=== PATIENT | female | born 1970 | race Caucasian/White ===

== ENCOUNTER 2018-01-31 05:03 | Inpatient (IN) | payer OTHER ==
[~2018-01-31] VITALS: Ht 170.2 cm; Wt 75.7 kg
[2018-01-31] VITALS (12 sets, daily range): BP systolic 137–184; BP diastolic 88–120
[~2018-01-31 05:03] MED LIST: CLARITIN-D 241 EACH PO; LISINOPRIL10 M1 PO; PROTONIX40 M3 PO
[2018-01-31 05:29] LABS: ABSOLUTE BASOPHIL COUNT 0 /CUMM (0.0-0.2); ABSOLUTE EOSINOPHIL COUNT 0 /CUMM (0.0-0.7); ABSOLUTE GRANULOCYTE CT 9.8 /CUMM (1.4-6.5); ABSOLUTE LYMPH COUNT 1.1 /CUMM (1.2-3.4); ABSOLUTE MONOCYTE COUNT 0.8 /CUMM (0.10-0.60); BASOPHIL % 0.4 % (0.0-2.0); EOSINOPHIL % 0.2 % (0-5); GRANULOCYTE % 83.6 % (42.2-75.2); HEMATOCRIT 42.5 % (37-47); MEAN CORPUSCULAR HGB 33.5 PG (27.0-31.0); MEAN CORPUSCULAR HGB CONC 33.1 G/DL (33.0-37.0); MEAN CORPUSCULAR VOLUME 101.4 FL (81.0-99.0); MEAN PLATELET VOLUME 7.6 FL (7.4-10.4); PLATELET COUNT 218 /CUMM (130-400); RBC DISTRIBUTION WIDTH 17.5 % (11.5-14.5); RED BLOOD CELL CT 4.19 /CUMM (4.20-5.40); WHITE BLOOD CELL COUNT 11.8 /CUMM (4.8-10.8)
[2018-01-31 05:37] LABS: PT 10.9 SEC (9.4-12.5); PTT 24 SEC (25-37)
--- NOTE | 2018-01-31 05:42 | ED GI/GU/ABDOMINAL COMPLAINT ---
History of Present Illness General Chief Complaint: Abdominal Pain/Flank Pain Stated Complaint: "IM HAVEING TERRIBLE STOMACH PAINS JUST TERRIBLE" Source: patient, family, old records Exam Limitations: no limitations Vital Signs & Intake/Output Vital Signs & Intake/Output Vital Signs Date Time Temp Pulse Resp B/P B/P Pulse O2 O2 Flow FiO2 Mean Ox Delivery Rate 01/31 0609 97 Room Air 01/31 0512 97.6 126 18 162/94 100 Room Air Allergies Coded Allergies: clarithromycin (From BIAXIN) (Severe, ANAPHYLAXIS 07/13/17) Penicillins (Intermediate, RASH 07/13/17) levofloxacin (From LEVAQUIN) (Intermediate, RASH 07/13/17) Reconcile Medications Lisinopril 10 MG TABLET 1 TAB PO QAM HTN (Reported) Loratadine/Pseudoephedrine (Claritin-D 24 Hour Tablet) 10 MG-240 MG TAB.ER.24H 1 TAB PO DAILY ALLERGIES (Reported) Pantoprazole Sodium (Protonix) 40 MG TABLET.DR 1 TAB PO BID GERD (Reported) Triage Note: PT FROM HOME C/O ABD PAIN THAT RADIATES TO BACK ON BOTH SIDE SINCE 2099. PT STATES THAT THE STOMACH PAIN IS 10/10, PT UNABLE TO DESCRIBE THE PAIN "I DONT KNOW IT JUST HURTS ALOT" PT IS SHAKING FROM PAIN IN TRIAGE. PTS VSS. AFEBRILE. PT PT STATES NAUSEA. PT DENIES SELF MEDICATING FOR PAIN. Triage Nurses Notes Reviewed? yes LMP (ages 10-50): unknown ? n Is pt currently ? No Onset: yesterday Duration: hour(s):, constant, continues in ED, getting worse Timing: recent history Quality/Severity: sharpness, severe Location: epigastric Radiation: no radiation Activities at Onset: none Prior Abdominal Problems: similar symptoms Past Sexual History: Unobtainable at this time No Modifying Factors: none Associated Symptoms: abdominal pain, loss of appetite, nausea/vomiting HPI: 1 day prior to admission patient complains of increasing mid abdominal discomfort now described as severe sharp radiating like a belt associated with nausea and diaphoresis. She denies vomiting diarrhea chest pain cough shortness of breath headache dysuria rash bleeding. Past History Travel History Traveled to [place] past 21 day No Medical History Any Pertinent Medical History? 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 MOTHER (bladder Ca). Age 67. Hx Contributory? No Review of Systems Review of Systems Constitutional: Reports: see HPI, diaphoresis. EENTM: Reports: no symptoms. Respiratory: Reports: no symptoms. Cardiovascular: Reports: no symptoms. GI: Reports: see HPI, abdominal pain, nausea. Genitourinary: Reports: no symptoms. Musculoskeletal: Reports: no symptoms. Skin: Reports: no symptoms. Neurological/Psychological: Reports: no symptoms. Hematologic/Endocrine: Reports: no symptoms. Immunologic/Allergic: Reports: no symptoms. All Other Systems: Reviewed and Negative Physical Exam Physical Exam General Appearance: well developed/nourished, alert, awake, anxious, severe distress Head: atraumatic, normal appearance Eyes: Bilateral: normal appearance, PERRL, EOMI, normal inspection. Ears, Nose, Throat, Mouth: hearing grossly normal, moist mucous membrane Neck: normal inspection, supple, full range of motion, normal alignment Respiratory: normal breath sounds, no respiratory distress, quiet respiration, lungs clear Cardiovascular: regular rate/rhythm, normal peripheral pulses, norml femoral pulses equa Peripheral Pulses: 4+ carotid (R), 4+ carotid (L) Gastrointestinal: soft, abnormal bowel sounds, distention, guarding Rectal: deferred Back: normal inspection, normal range of motion Extremities: normal range of motion Neurologic/Psych: no motor/sensory deficits, awake, alert, oriented x 3, normal gait, normal mood/affect Skin: intact, diaphoresis Core Measures ACS in differential dx? No Sepsis Present: No Sepsis Focused Exam Completed? No Progress Differential Diagnosis: appendicitis, biliary colic, kidney stone, pancreatitis Plan of Care: Orders Procedure Date/time Status Nothing by Mouth 01/31 B Active Patient Data 01/31 1644 Active LACTIC ACID 01/31 0821 Active OXYGEN SETUP (GEN) 01/31 0650 Active Saline Lock 01/31 0650 Active Admit to inpatient 01/31 0650 Active Vital Signs 01/31 0650 Active Activity/Ambulation 01/31 0650 Active URINALYSIS 01/31 0650 Active Code Status 01/31 0650 Active PARTIAL THROMBOPLASTIN TIME 01/31 0521 Complete PROTHROMBIN TIME 01/31 05 Complete LACTIC ACID 01/31 05 Complete TROPONIN LEVEL 01/31 517 Complete LIPASE 01/31 517 Complete ETHANOL 01/31 517 Complete COMPREHENSIVE METABOLIC PANEL 01/31 517 Complete CBC WITHOUT DIFFERENTIAL 01/31 517 Complete AMYLASE 01/31 517 Complete Current Medications Sig/Lucy Start time Last Medication Dose Stop Time Status Admin Sodium Chloride 1,000 ML BOLUS ONE 01/31 06 AC (Normal Saline 0.9%) 01/31 0714 Laboratory Tests 01/31/1818: Lactic Acid 3.0 H 01/31/1818: Anion Gap 17 H, Estimated GFR > 60, BUN/Creatinine Ratio 20.0, Glucose 118 H, Calcium 9.1, Total Bilirubin 0.7, AST 249 H, ALT 210 H, Alkaline Phosphatase 100, Troponin I < 0.01, Total Protein 6.9, Albumin 4.5, Globulin 2.4, Albumin/ Globulin Ratio 1.9, Amylase 503 H, Lipase 7174 H, PT 10.9, INR 1.00, APTT 24 L, CBC w Diff NO MAN DIFF REQ, RBC 4.19 L, MCV 101.4 H, MCH 33.5 H, MCHC 33.1 , RDW 17.5 H, MPV 7.6, Gran % 83.6 H, Lymphocytes % 9.3 L, Monocytes % 6.5, Eosinophils % 0.2, Basophils % 0.4, Absolute Granulocytes 9.8 H, Absolute Lymphocytes 1.1 L, Absolute Monocytes 0.8 H, Absolute Eosinophils 0, Absolute Basophils 0, Serum Alcohol 61.0 Diagnostic Imaging: Viewed by Me: CT Scan. Discussed w/RAD: CT Scan. Radiology Impression: Edematous pancreas with moderate to large amount of adjacent free fluid. The appearance is suspicious for pancreatitis. There are no demonstrable pancreatic nor biliary calculi. Hepatic steatosis. Moderate amount of pelvic free fluid. Bibasilar atelectasis. Initial ED EKG: none Departure Departure Time of Disposition: 647 Disposition: STILL A PATIENT Condition: Stable Clinical Impression Primary Impression: Pancreatitis, acute Referrals: Patient Has No Primary Care Dr (PCP/Family) Departure Forms: Customer Survey General Discharge Information Admission Note Spoke With: Sue Mccray MD Documentation of Exam: Documentation of any treatments & extenuating circumstances including Concerns Regarding Discharge (functional status, medication knowledge or non-compliance, living conditions, etc.) that warrant an admission rather than observation: Nothing by mouth IV analgesia IV fluids serial lab exam medication adjustment advance diet continuing care discharge planning Critical Care Note Critical Care Note Critical Care Time: 30-74 min (40)
--- NOTE | 2018-01-31 06:41 | CT SCAN REPORT ---
EXAMINATION: CT ABDOMEN AND PELVIS WITH CONTRAST CLINICAL INFORMATION: Abdominal pain. Concern for pancreatitis. History of prior intussusception. COMPARISON: August 08, 2017. TECHNIQUE: Contiguous axial thin section helical images of the abdomen and pelvis were performed following the administration of 95 mL of intravenous Optiray 320. The data set was reformatted in the coronal and sagittal planes and reviewed on an independent workstation. DLP: 287 mGy-cm. FINDINGS: There is bibasilar linear atelectasis. The visualized lung bases are otherwise clear. The visualized portions of the heart are unremarkable. The liver is of normal size and attenuation without focal lesions nor intrahepatic biliary ductal dilation. A normal gallbladder is identified. There is no wall thickening or discernible pericholecystic fluid. The the spleen and adrenal glands are unremarkable. The pancreas is edematous. There are no parenchymal mass lesions. There are no areas of abnormal enhancement. There is a moderate to large amount of free fluid within the upper abdomen, centered about the pancreas. Free fluid extends into both paracolic gutters. Both kidneys are of normal size and attenuation without hydronephrosis or nephrolithiasis. Following the administration of IV contrast, prompt symmetric nephrograms are displayed. There is no abdominal free fluid. There is neither mesenteric nor retroperitoneal lymphadenopathy. Normal unopacified loops of small and large bowel are identified. There is a moderate amount of pelvic free fluid. The urinary bladder is unremarkable. There is neither pelvic nor inguinal lymphadenopathy. Bone windows: Neither sclerotic nor lytic bone lesions are identified. IMPRESSION: Edematous pancreas with moderate to large amount of adjacent free fluid. The appearance is suspicious for pancreatitis. There are no demonstrable pancreatic nor biliary calculi. Hepatic steatosis. Moderate amount of pelvic free fluid. Bibasilar atelectasis.
--- NOTE | 2018-01-31 07:59 | History & Physical ---
Ji Juarez 01/31/18 0759: General Information and HPI MD Statement: I have seen and personally examined ZOE BEAUCHAMP and documented this H&P. Source of Information: patient Exam Limitations: no limitations History of Present Illness: The patient is a 7 YO F w/PMH sigfinicant for HTN who presents to the hospital for abdominal pain and nausea one day. The patient, describes abdominal pain as sharp, constant, 9/10, radiating to have back. She also felt feverish and had chills last night. This morning started experience shaking. Her last drink was yesterday afternoon(glass of vodka and gingerale). Usually drinks 10 drinks per week. No h/o admission to the hospital for alcohol detox, no admission to rehab. No h/o withdrawal seizure. At the time of our interview, the patient denies any headache, dizziness, lightheadedness, chest pain, shortness of breath. Denies smoking or illicit drug use. Allergies/Medications Allergies: Coded Allergies: clarithromycin (From BIAXIN) (Severe, ANAPHYLAXIS 07/13/17) Penicillins (Intermediate, RASH 07/13/17) levofloxacin (From LEVAQUIN) (Intermediate, RASH 07/13/17) Home Med list Lisinopril 10 MG TABLET 1 TAB PO QAM HTN (Reported) Loratadine/Pseudoephedrine (Claritin-D 24 Hour Tablet) 10 MG-240 MG TAB.ER.24H 1 TAB PO DAILY ALLERGIES (Reported) Pantoprazole Sodium (Protonix) 40 MG TABLET.DR 1 TAB PO BID GERD (Reported) Past History Travel History Traveled to [place] past 21 day No Medical History Neurological: NONE EENT: allergies (seasonal) Cardiovascular: hypertension Respiratory: NONE Gastrointestinal: GERD, peptic ulcer disease (reportedly at age 12 by UGI) Hepatic: NONE Renal: NONE Musculoskeletal: NONE Psychiatric: NONE Endocrine: NONE Blood Disorders: NONE (macrocytic, w/o transfx), anemia Cancer(s): NONE 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 MOTHER (bladder Ca). Age 67. Psychosocial History Who Do You Live With? child, fiancee, Bill Services at Home: None Primary Language: Romansh Living Will? no Power of Commercial Credit Officer/HCP? no Functional Ability ADLs Independent: dressing, eating, toileting, bathing. Ambulation: independent IADLs Independent: shopping, housework, finances, food prep, telephone, transportation , medication admin. Sexual History Past Sexual History Unobtainable at this time Review of Systems Review of Systems Constitutional: Reports: chills, diaphoresis, fever. Denies: malaise, weakness, unexplained weight loss. EENTM: Reports: no symptoms. Cardiovascular: Denies: chest pain, edema, orthopena, palpitations, peripheral edema, syncope. Respiratory: Denies: cough, hemoptysis, orthopnea, short of breath, sputum production, stridor, wheezing. GI: Reports: abdominal pain, nausea. Denies: bloating, constipation, diarrhea, distention, bowel incontinence, melena, bloody stool, changes in stool, vomiting , steatorrhea. Genitourinary: Reports: no symptoms. Musculoskeletal: Reports: no symptoms. Skin: Reports: no symptoms. Neurological/Psychological: Reports: no symptoms. Hematologic/Endocrine: Reports: no symptoms. Immunologic/Allergic: Reports: no symptoms. Exam & Diagnostic Data Last 24 Hrs of Vital Signs/I&O Vital Signs Date Time Temp Pulse Resp B/P B/P Pulse O2 O2 Flow FiO2 Mean Ox Delivery Rate 01/31 0850 97.7 127 20 168/102 01/31 0849 97.7 127 20 168/102 98 Room Air 01/31 0735 98.6 100 20 140/80 100 Room Air 01/31 0609 97 Room Air 01/31 0512 97.6 126 18 162/94 100 Room Air Intake & Output 01/31 1600 01/31 0800 01/31 0000 Intake Total 1000 Output Total Balance 1000 Intake, IV 1000 Patient 146 lb Weight Weight Reported by Patient Measurement Method Physical Exam General Appearance Alert, Oriented X3, Mild Distress Skin No Rashes, No Breakdown, No Significant Lesion Skin Temp/Moisture Exam: Warm/Dry HEENT Atraumatic, PERRLA, EOMI, Mucous Membr. moist/pink Neck Supple, No JVD, No thryomegaly, +2 Carotid Pulse wo Bruit, No LAD Lymphatic Cervical nl Cardiovascular Regular Rate, Normal S1, Normal S2, No Murmurs, Gallops, Rubs Lungs Clear to Auscultation, Normal Air Movement Abdomen Generalized tenderness to palpation, no guarding, no rebound Neurological Normal Speech, Strength at 5/5 X4 Ext, Normal Tone, Sensation Intact, Cranial Nerves 3-12 NL, Reflexes 2+ Extremities No Clubbing, No Cyanosis, No Edema, Normal Pulses, No Tenderness/ Swelling Vascular Normal Pulses, Pulses Symmetrical Last 24 Hrs of Labs/Altaf: Laboratory Tests 01/31/18 0817: Lactic Acid Pending 01/31/18 0650: Urine Color YEL, Urine Clarity HAZY H, Urine pH 6.5, Ur Specific [place] 1.010, Urine Protein TRACE H, Urine Ketones TRACE H, Urine Nitrite NEG, Urine Bilirubin NEG, Urine Urobilinogen 0.2, Ur Leukocyte Esterase NEG, Ur Microscopic SEDIMENT EXAMINED, Urine RBC RARE, Urine WBC 1-3 H, Ur Epithelial Cells MANY H , Urine Bacteria RARE H, Urine Mucus RARE, Urine Hemoglobin NEG, Urine Glucose NEG 01/31/18 0518: Lactic Acid 3.0 H 01/31/18 0518: Anion Gap 17 H, Estimated GFR > 60, BUN/Creatinine Ratio 20.0, Glucose 118 H, Calcium 9.1, Total Bilirubin 0.7, AST 249 H, ALT 210 H, Alkaline Phosphatase 100, Troponin I < 0.01, Total Protein 6.9, Albumin 4.5, Globulin 2.4, Albumin/ Globulin Ratio 1.9, Amylase 503 H, Lipase 7174 H, PT 10.9, INR 1.00, APTT 24 L, CBC w Diff NO MAN DIFF REQ, RBC 4.19 L, MCV 101.4 H, MCH 33.5 H, MCHC 33.1 , RDW 17.5 H, MPV 7.6, Gran % 83.6 H, Lymphocytes % 9.3 L, Monocytes % 6.5, Eosinophils % 0.2, Basophils % 0.4, Absolute Granulocytes 9.8 H, Absolute Lymphocytes 1.1 L, Absolute Monocytes 0.8 H, Absolute Eosinophils 0, Absolute Basophils 0, Serum Alcohol 61.0 Diagnostic Data Other Results CT abdomen/pelvis: Edematous pancreas with moderate to large amount of adjacent free fluid. The appearance is suspicious for pancreatitis. There are no demonstrable pancreatic nor biliary calculi. Hepatic steatosis. Moderate amount of pelvic free fluid. Bibasilar atelectasis. Assessment/Plan Assessment: The patient is a 7 YO F w/PMH sigfinicant for HTN who presents to the hospital for abdominal pain and nausea one day. Amylase: 503 Lipase: 7174 CT reveals pancreatitis. Does not meet SIRS criteria. Serum creatinine and BUN, HCT not elevated. Problem list: #acute pancreatitis #Alcohol withdrawal # hypertension Plan: infiltrates As Ranked By This Provider Problem List: 1. Pancreatitis, acute Core Measures/Misc (06/03) Acute Coronary Syndrome ACS Diagnosis: No Congestive Heart Failure Congestive Heart Failure Diagnosis No Cerebrovascular Accident CVA/TIA Diagnosis: No VTE (View Protocol) VTE Risk Factors Age>40 No Mechanical VTE Prophylaxis d/t N/A MechProphylax Ordered No VTE Pharm Prophylaxis d/t NA PharmProphylax ordered Sepsis (View protocol) Sepsis Present: No Wu Fish 01/31/18 1452: Attending MD Review Statement Attending Statement Attending MD Statement: examined this patient, discuss w/resident/PA/TRAY SETTER, agreed w/resident/PA/TRAY SETTER, reviewed EMR data (avail), discussed with nursing, discussed with case mgmt Attending Assessment/Plan: 47 yr old female with pmh of HTN and alcohol use presented with c/c of HTN who presents to the hospital for abdominal pain and nausea one day. Pt says her last drink of vodka was last evening and she could not drink it as it made her abdominal pain worse and made her nauseous. Pt on CT abdomen in ER was found to have- " Edematous pancreas with moderate to large amount of adjacent free fluid. The appearance is suspicious for pancreatitis. There are no demonstrable pancreatic nor biliary calculi." Acute pacreatitis likely seondary to alcohol use- will keep her NPO for now and will cont to monitor her closley. will aggressively hydrate her and will cont on pain managment. Lactic acidosis- improving with iv fluids. will rechech again to see if it normalizes. ETOH intoxication and active withdrawl- pt bp and hr is high. will cont her on ativan per CIWA protocol. Pt appears shaky on exam > will need to monitor her closely for worsening withdrawl> Monitor on tele for now due to tachycardia. Will check b12 and folate level. d/w pt the care plan.
--- NOTE | 2018-01-31 13:40 | RADIOLOGY REPORT ---
EXAMINATION: XR PORTABLE CHEST CLINICAL INFORMATION: Pancreatitis with tachycardia COMPARISON: 07/13/2017 TECHNIQUE: Portable frontal view of the chest was obtained. FINDINGS: The cardiomediastinal silhouette is normal and unchanged. There are low lung volumes with bibasilar atelectasis produced. There is no significant effusion seen. There is no consolidation is evident. IMPRESSION: Low lung volumes with basilar atelectasis. No demonstrable effusion.
--- NOTE | 2018-01-31 14:47 | Admission Certification ---
Admission Certification Certification Statement - As attending physician, I certify that at the time of - admission, based on clinical presentation, severity of - symptoms, need for further diagnostic testing and - therapeutic interventions, and risk of adverse outcomes - without in-hospital treatment, in my clinical assessment, - this patient requires an acute hospital stay for a minimum - of two nights or longer. I have also considered psychsocial - factors such as support system, advanced age, financial - issues, cognitive issues, and failed out-patient treatments, - past re-admission history, safety of patient, and lack of - compliance as applicable. Specific rationale supporting this admission is: acute pancreatitis and alcohol intoxication.
--- NOTE | 2018-01-31 21:42 | Event Note ---
Event Note Event Note: Situation: Was paged by the nurse at 730 because the patient has heartrate [id number] after she received 1 dose of labetalol 5 mg. Another dose of labetalol 20 mg was pushed around 8 PM. Patient remained tachycardic after that with heart rate over 130, CIWA score was 17. She was transferred to ICU and was started on Ativan drip, with trending of her lactic acid which was initially elevated, Family was informed( Mr. aparna Liu ) and he said he is still inside the hospital. And they will be at the bedside Update: Patient was noticed to desaturate into the 70s and was started on 100% rebreather mask, patient received IV lactated Ringed total bolus of 7 L. CXR showed CHF with pulmonary edema, pt recieved Lasix 20 mg IV Ordered CXR, Trops and EKG , Lactic acid Background:L
--- NOTE | 2018-01-31 22:42 | RADIOLOGY REPORT ---
EXAMINATION: XR PORTABLE CHEST CLINICAL INFORMATION: Desaturation. Pulmonary edema. COMPARISON: Chest x-ray 01/31/2018 TECHNIQUE: Portable frontal view of the chest was obtained. 10:13 PM FINDINGS: Low lung volume. There is pulmonary vascular congestion with hazy opacity in the mid lungs bilaterally consistent with developing pulmonary edema. No large pleural effusion. IMPRESSION: Congestive heart failure with pulmonary edema.
--- NOTE | 2018-01-31 23:33 | RADIOLOGY REPORT ---
EXAMINATION: XR PORTABLE CHEST CLINICAL INFORMATION: ET tube. OG tube. COMPARISON: Chest x-ray 01/31/2018, 10:13 PM TECHNIQUE: Portable frontal view of the chest was obtained. 11:09 PM FINDINGS: Nasogastric tube in stomach. Endotracheal tube in good position with catheter tip about 4 cm above the megan. There is pulmonary vascular congestion with pulmonary edema and bilateral pleural effusions similar to prior chest x-ray. IMPRESSION: 1. Oral gastric tube in stomach. 2. Endotracheal tube catheter tip 4 cm above megan. 3. Congestive heart failure.
[2018-02-01] VITALS (11 sets, daily range): BP systolic 100–130; BP diastolic 70–99
--- NOTE | 2018-02-01 00:10 | RADIOLOGY REPORT ---
EXAMINATION: CHEST 1 VIEW CLINICAL INFORMATION: Intubated. COMPARISON: Multiple prior exams are reviewed. The most recent is from the same day obtained at 2310 hours. TECHNIQUE: An AP view of the chest was obtained at 2341 hours. FINDINGS: The cardiac silhouette is stable. The tip of the endotracheal tube is approximately 5 cm above the megan. An enteric tube is in unchanged position. There is persistent patchy opacification within the lower half of the right hemithorax. As well, there is a persistent retrocardiac opacity. The degree of vascular congestion is improved from prior exam. There are small bilateral pleural effusions. There are no pneumothoraces. The osseous structures are stable. IMPRESSION: Endotracheal tube and enteric tube in place. Persistent multifocal airspace disease. Slight interval improvement in the degree of vascular congestion. Small bilateral pleural effusions.
[2018-02-01 03:01] LABS: ABSOLUTE BASOPHIL COUNT 0 /CUMM (0.0-0.2); ABSOLUTE EOSINOPHIL COUNT 0 /CUMM (0.0-0.7); ABSOLUTE GRANULOCYTE CT 13.9 /CUMM (1.4-6.5); BASOPHIL % 0 % (0.0-2.0); EOSINOPHIL % 0.1 % (0-5); GRANULOCYTE % 86.9 % (42.2-75.2); HEMATOCRIT 41.4 % (37-47); MEAN CORPUSCULAR HGB CONC 34.2 G/DL (33.0-37.0); MEAN CORPUSCULAR VOLUME 99.6 FL (81.0-99.0); MEAN PLATELET VOLUME 8.6 FL (7.4-10.4); PLATELET COUNT 146 /CUMM (130-400); RBC DISTRIBUTION WIDTH 16.7 % (11.5-14.5); RED BLOOD CELL CT 4.16 /CUMM (4.20-5.40)
--- NOTE | 2018-02-01 07:32 | RADIOLOGY REPORT ---
EXAMINATION: XR PORTABLE CHEST CLINICAL INFORMATION: Pancreatitis COMPARISON: Several chest x-rays from yesterday. TECHNIQUE: Portable frontal view of the chest was obtained. FINDINGS: Stable positioning of endotracheal tube approximately 4.6 cm above the level of the megan. Enteric tube terminates well below the level of the diaphragm. Cardiac silhouette is mildly enlarged, possibly secondary to technical factors. Persistent patchy opacification throughout the lower aspect of the right hemithorax. Degree of opacification in appearance slightly more prominent than imaging from yesterday. Retrocardiac opacity is also again suspected. No no gross pleural effusion or pneumothorax. IMPRESSION: 1. Stable support apparatus. 2. Persistent multifocal airspace disease, potentially mildly worsened within the right hemithorax.
--- NOTE | 2018-02-01 07:45 | Cons- CRCU ---
Brendon ROLLINS,[facility] 02/01/18 0745: General Information and HPI Consulting Request Date of Consult: 02/01/18 Requested By: BETTINA Reason for Consult: Delirium Trenems Intubation Exam Limitations: unable to give history History of Present Illness: This is a 47-year-old lady with a past medical history of hypertension and daily alcohol use presented with one-day history of abdominal pain in the setting of elevated lipase (7174) and CT finding suggestive of pancreatitis. Initially patient was admitted to general medicine floor for acute pancreatitis and etoh detox, however later in the evening, her ciwa remained elevated with significant tachycardia, decision was made to transfer to ICU for insulin drip. While at the ICU she desatted on nonrebreather mask to o2 levels of 70%, and was eventually intubated. Prior to transfer to ICU patient had received about 7 L of lactated Ringer, a chest x-ray was obtained and patient was administered IV Lasix. The ICU team is being consulted for management of etoh withdrawal complicated by the need for Ativan drip and acute hypoxic respiratory failure requiring invasive mechanical ventilation. Current Vent Setting: VT:500mls, FIo2 40, RR 22, PEEP 5. Access: 2 peripheral 20 G. Catheter: In place day 1. Allergies/Medications Allergies: Coded Allergies: clarithromycin (From BIAXIN) (Severe, ANAPHYLAXIS 07/13/17) Penicillins (Intermediate, RASH 07/13/17) levofloxacin (From LEVAQUIN) (Intermediate, RASH 07/13/17) Home Med List: Lisinopril 10 MG TABLET 1 TAB PO QAM HTN (Reported) Loratadine/Pseudoephedrine (Claritin-D 24 Hour Tablet) 10 MG-240 MG TAB.ER.24H 1 TAB PO DAILY ALLERGIES (Reported) Pantoprazole Sodium (Protonix) 40 MG TABLET.DR 1 TAB PO BID GERD (Reported) Past History Travel History Traveled to [place] past 21 day No Medical History Neurological: NONE EENT: allergies (seasonal) Cardiovascular: hypertension Respiratory: NONE Gastrointestinal: GERD, peptic ulcer disease (reportedly at age 12 by UGI) Hepatic: NONE Renal: NONE Musculoskeletal: NONE Psychiatric: NONE Endocrine: NONE Blood Disorders: NONE (macrocytic, w/o transfx), anemia Cancer(s): NONE 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 MOTHER (bladder Ca). Age 67. Psychosocial History Where Do You Live? Home Who Do You Live With? child, fiancee, Bill Services at Home: None Primary Language: Finnish Smoking Status: Never Smoked Living Will? no Power of Foot Press Operator/HCP? no Functional Ability ADLs Independent: dressing, eating, toileting, bathing. Ambulation: independent IADLs Independent: shopping, housework, finances, food prep, telephone, transportation , medication admin. Exam & Diagnostic Data Last 24 Hrs of Vital Signs/I&O Laboratory Tests 02/01/18 0808: Lactic Acid Pending 02/01/18 0555: pH 7.58 H, pCO2 24 L, pO2 64 L, HCO3 22, ABG O2 Sat (Measured) 94.0 L, P-50 (Temp Corrected) N, Carboxyhemoglobin 1.1 L, O2 Concentration % .40, Respiration Rate 22, O2 Delivery Method VENT, Vent Mode A/C, Expiratory Pressure 5, Tidal Volume 500, Phlebotomy Draw Site RIGHT BRACHIAL 02/01/18 0520: Troponin I 0.80 *H 02/01/18 0520: Lactic Acid Cancelled 02/01/18 0520: Lactic Acid 2.9 H 02/01/18 0245: Lactic Acid 2.6 H 02/01/18 0245: Anion Gap 12, Estimated GFR > 60, BUN/Creatinine Ratio 16.0, Phosphorus 3.1, Magnesium 0.8 *L, CBC w Diff MAN DIFF ORDERED, RBC 4.16 L, MCV 99.6 H, MCH 34.0 H, MCHC 34.2, RDW 16.7 H, MPV 8.6, Gran % 86.9 H, Lymphocytes % 6.4 L, Monocytes % 6.6, Eosinophils % 0.1, Basophils % 0, Absolute Granulocytes 13.9 H , Segmented Neutrophils 90 H, Band Neutrophils 2, Absolute Lymphocytes 1.0 L, Lymphocytes 5 L, Monocytes 3, Absolute Monocytes 1.0 H, Absolute Eosinophils 0 , Absolute Basophils 0, Platelet Estimate ADEQUATE, Normochromic RBCs VERIFIED, Poikilocytosis 1+, Ovalocytes FEW, Stomatocytes 1+, Fld Total RBCs Counted 100 01/31/18 2305: Troponin I 0.63 *H 01/31/18 2305: Lactic Acid 2.6 H 01/31/18 2250: pH 7.40, pCO2 34 L, pO2 54 L, HCO3 21, ABG O2 Sat (Measured) 85.0 L, P-50 ( Temp Corrected) N, Carboxyhemoglobin 1.2 L, O2 Concentration % 100%, Temperature 98.6, Respiration Rate 22, O2 Delivery Method VENT, Vent Mode VC-AC, Expiratory Pressure 10, Tidal Volume 500, Phlebotomy Draw Site LEFT RADIAL 01/31/181947: Lactic Acid Cancelled 01/31/181821: Lactic Acid 2.9 H 01/31/181821: Anion Gap 15, Estimated GFR > 60, BUN/Creatinine Ratio 17.5, Total Bilirubin 1.0 , Direct Bilirubin 0.2, AST 129 H, ALT 145 H, Alkaline Phosphatase 87, Total Protein 5.9 L, Albumin 3.7, Prolactin 26.0 H 01/31/18 1450: Lactic Acid 3.4 H 01/31/18 1234: Lactic Acid Cancelled 01/31/18 1130: Lactic Acid 3.5 H Vital Signs Date Time Temp Pulse Resp B/P B/P Pulse O2 O2 Flow FiO2 Mean Ox Delivery Rate 02/01 0600 99.8 128 22 114/83 02/01 0530 40 02/01 0400 99.0 130 22 126/93 02/01 0400 94 Ventilator 60% 02/01 0321 60 02/01 0200 124 22 102/81 02/01 0120 80 02/01 0105 141 127/94 02/01 0100 141 22 127/94 02/01 0000 148 22 127/99 02/01 0000 98.8 148 22 130/90 90 Ventilator 100% 02/01 0000 90 Ventilator 100% 01/31 2311 100 01/31 2300 156 22 137/96 01/31 2200 160 161/108 01/31 2130 140 33 152/105 02/01 2004 136 160/120 01/31 1954 136 160/120 01/31 1953 136 160/120 01/31 1800 98.6 120 16 164/104 01/31 1526 107 18 160/98 01/31 1448 118 184/110 01/31 1419 99.5 121 18 184/100 90 Room Air 01/31 1405 118 184/110 01/31 1330 98.6 120 20 140/80 98 Room Air 01/31 1250 98.6 122 20 158/88 01/31 1214 98.6 122 20 158/88 96 Room Air 01/31 1053 97.0 128 20 168/94 01/31 1050 97.0 128 20 168/94 01/31 1045 97.0 128 20 168/94 97 Room Air 01/31 0940 127 20 160/100 96 Room Air Intake & Output 02/01 1600 02/01 0800 02/01 0000 Intake Total 1208 Output Total 1600 Balance -392 Intake, IV 1208 Intake, Oral 0 Number 0 Bowel Movements Output, 200 Gastric Drainage Output, Urine 1400 Patient 78.103 kg Weight Weight Bed scale Measurement Method Physical Exam General Appearance: sedated, intubated Other Physical Findings: Skin No Rashes, No Breakdown, No Significant Lesion Skin Temp/Moisture Exam: Warm/Dry HEENT: ET tube intact. Neck Supple, No JVD, No thryomegaly, +2 Carotid Pulse wo Bruit, No LAD Lymphatic Cervical nl Cardiovascular Regular Rate, Normal S1, Normal S2, No Murmurs, Gallops, Rubs Lungs Clear to Auscultation, Normal Air Movement Abdomen Generalized tenderness to palpation, no guarding, no rebound Extremities No Clubbing, No Cyanosis, No Edema, Normal Pulses, No Tenderness/ Swelling Vascular Normal Pulses, Pulses Symmetrical Last 48 Hrs of Labs/Altaf: Laboratory Tests 02/01/18 0808: Lactic Acid 2.9 H 02/01/18 0555: pH 7.58 H, pCO2 24 L, pO2 64 L, HCO3 22, ABG O2 Sat (Measured) 94.0 L, P-50 (Temp Corrected) N, Carboxyhemoglobin 1.1 L, O2 Concentration % .40, Respiration Rate 22, O2 Delivery Method VENT, Vent Mode A/C, Expiratory Pressure 5, Tidal Volume 500, Phlebotomy Draw Site RIGHT BRACHIAL 02/01/18 0520: Troponin I 0.80 *H 02/01/18 0520: Lactic Acid Cancelled 02/01/18 0520: Lactic Acid 2.9 H 02/01/18 0245: Lactic Acid 2.6 H 02/01/18 0245: Anion Gap 12, Estimated GFR > 60, BUN/Creatinine Ratio 16.0, Phosphorus 3.1, Magnesium 0.8 *L, Gog-U-Aottjfeysnm Pept 2850 H, CBC w Diff MAN DIFF ORDERED, RBC 4.16 L, MCV 99.6 H, MCH 34.0 H, MCHC 34.2, RDW 16.7 H, MPV 8.6, Gran % 86.9 H, Lymphocytes % 6.4 L, Monocytes % 6.6, Eosinophils % 0.1, Basophils % 0 , Absolute Granulocytes 13.9 H, Segmented Neutrophils 90 H, Band Neutrophils 2 , Absolute Lymphocytes 1.0 L, Lymphocytes 5 L, Monocytes 3, Absolute Monocytes 1.0 H, Absolute Eosinophils 0, Absolute Basophils 0, Platelet Estimate ADEQUATE , Normochromic RBCs VERIFIED, Poikilocytosis 1+, Ovalocytes FEW, Stomatocytes 1+ , Fld Total RBCs Counted 100 01/31/18 230: Troponin I 0.63 *H 01/31/182304: Lactic Acid 2.6 H 01/31/180: pH 7.40, pCO2 34 L, pO2 54 L, HCO3 21, ABG O2 Sat (Measured) 85.0 L, P-50 ( Temp Corrected) N, Carboxyhemoglobin 1.2 L, O2 Concentration % 100%, Temperature 98.6, Respiration Rate 22, O2 Delivery Method VENT, Vent Mode VC-AC, Expiratory Pressure 10, Tidal Volume 500, Phlebotomy Draw Site LEFT RADIAL 01/31/181947: Lactic Acid Cancelled 01/31/181821: Lactic Acid 2.9 H 01/31/18 182: Anion Gap 15, Estimated GFR > 60, BUN/Creatinine Ratio 17.5, Total Bilirubin 1.0 , Direct Bilirubin 0.2, AST 129 H, ALT 145 H, Alkaline Phosphatase 87, Total Protein 5.9 L, Albumin 3.7, Prolactin 26.0 H 01/31/18 1450: Lactic Acid 3.4 H 01/31/18 1234: Lactic Acid Cancelled 01/31/18 1130: Lactic Acid 3.5 H 01/31/18 0817: Lactic Acid 2.4 H 01/31/18 0650: Urine Opiates Screen > 4000.00 H, Methadone Screen < 40, Barbiturate Screen < 60, Ur Phencyclidine Scrn < 6.00, Amphetamines Screen 296, U Benzodiazepines Scrn < 85, Urine Cocaine Screen < 50, Urine Cannabis Screen < 5.00, Urine Color YEL, Urine Clarity HAZY H, Urine pH 6.5, Ur Specific [place] 1.010, Urine Protein TRACE H, Urine Ketones TRACE H, Urine Nitrite NEG, Urine Bilirubin NEG , Urine Urobilinogen 0.2, Ur Leukocyte Esterase NEG, Ur Microscopic SEDIMENT EXAMINED, Urine RBC RARE, Urine WBC 1-3 H, Ur Epithelial Cells MANY H, Urine Bacteria RARE H, Urine Mucus RARE, Urine Hemoglobin NEG, Urine Glucose NEG 01/31/18 0518: Lactic Acid 3.0 H 01/31/18 0518: Anion Gap 17 H, Estimated GFR > 60, BUN/Creatinine Ratio 20.0, Glucose 118 H, Calcium 9.1, Total Bilirubin 0.7, AST 249 H, ALT 210 H, Alkaline Phosphatase 100, Lactate Dehydrogenase 775 H, Troponin I < 0.01, Total Protein 6.9, Albumin 4.5, Globulin 2.4, Albumin/Globulin Ratio 1.9, Triglycerides 89, Cholesterol 262 H, LDL Cholesterol, Calc 135 H, HDL Cholesterol 167 H, Cholesterol/HDL Ratio 1.6, Amylase 503 H, Lipase 7174 H, Vitamin B12 408, Folate 2.2 L, PT 10.9, INR 1.00, APTT 24 L, CBC w Diff NO MAN DIFF REQ, RBC 4.19 L, MCV 101.4 H, MCH 33.5 H, MCHC 33.1, RDW 17.5 H, MPV 7.6, Gran % 83.6 H, Lymphocytes % 9.3 L, Monocytes % 6.5, Eosinophils % 0.2, Basophils % 0.4, Absolute Granulocytes 9.8 H, Absolute Lymphocytes 1.1 L, Absolute Monocytes 0.8 H, Absolute Eosinophils 0, Absolute Basophils 0, Serum Alcohol 61.0 Assessment/Plan CRCU Impression/Plan: Assesment 47-year-old lady chronic EtOH use present with acute onset of abdominal pain and is found to have acute pancreatitis based on elevated lipase level and CT findings of inflammatory areas around the pancreas. She transferred to ICU for the need event drip due to elevated CIWA score was above 70, developed acute hypoxic respiratory failure fracture to nonrebreather mask and requiring intubation. Patient had received 7 L lactated Ringer prior today hypoxic event, in addition to intubation patient was given IV 20 mg of Lasix. Impression and Plan * Respiratory: Acute hypoxic respiratory failure requiring intubation. Her initial chest x-ray was suggestive of pulmonary edema. Even though she was s/p 7 L of lactated Ringer that she received as part of treatment protocol for pancreatitis, given her age and no prior cardiac hx, it is unlikley she had developed overt pulmonary edema. ARDS is a possibility as patient with pancreatitis are at greater risk of developing ARDS, however her Pa02/FIO2 is less suggestive of ARDS. There is some finding of airspace disease that could suggest pneumonia especially in the context of dy heaving and vomiting prior to admission. The persistent tachycardia and respiratory alkalosis in the setting of acute hypoxia warranted an investigation for Pulmonary Embolism, CTA was obtained and was negative. The plan for her resp status today will be to ecrease VT and RR, and Unasyn.. * Infection: She is afebrile however with worsening leukocytosis. This could be secondary to inflammatory process vs etoh. However, the airspace disease finding on chest x-ray and in the setting of acute hypoxic respiratory failure, it is reasonable to suggest that patient could have had a pneumonia most likely aspiration pneumonia given that his frequent EtOH user. Will start Unasyn 3.5mg q 6h. * Cardiac: Patient is tachycardic consistent with alcohol withdrawal. She is also noted to have mild elevation of troponin, is most likely secondary to supply demand mismatch in the setting of active withdrawal. There is no acute chest pain or EKG changes, and no past medical history of coronary artery disease, therefore ACS is less likely. We'll however still consult with cardiology. Regarding her tachycardia, the ideal treatment is to optimize withdrawal management with Ativan. We will increase Ativan drip from 6mg/hr to 10 mg/hr. * Hematology: Leukocytosis noted. Coagulation studies wnl. No thrombocytopenia. * Metabolic: Electrolyte deraingements of hypomagnesemia and Hypokalemia consistent with Etoh detox and acute pancreatits, will aggresively replenish mag , phos and K. We will also repeat a Lipase and RUQ scan. * Alimentary: Intubated. Bowel rest as part of Pancreatitis protocol. * Neuro: Awaken by verbal stimuli, sedated, RASS of 0, no neurological focality noted. Consult Acknowledgment - Thank you for your consult request. Doron Holt MD 02/01/18 1416: Assessment/Plan CRCU Other Findings/Comments: Doron Hampton M.D. have examined this patient, reviewed available EMR data, personally reviewed images, discussed with resident/PA/ANDROID PROGRAMMER, discussed management plan with housestaff and nursing staff, discussed managment plan all of healthcare providers, discussed management plan with patient and/or family, agreed with resident/PA/ANDROID PROGRAMMER. The past history and parts of the chart have been autopopulated. Impression 47 year old woman * acute hypoxemic respiratory failure secondary to fluid administration * acute pancreatitis * acute etoh withdrawal/dependence * elevated troponins Plan Respiratory -reduce TV to 450 -RR to 16 -cta performed today showing no evidence of PE, b/l effusions, atelectasis ID -likely aspiration, hx of heaving -unasyn for coverage of likely aspiration pneumonia CVS -f/u cardiology, troponins, echo, ekgs -tachycardia - PE ruled out, no pain, increase sedation Heme -f/u coags, cbcs Metabolic -replete lytes -bowel rest -all meds IV -monitor lipase -RUQ sono -trend LFTs for transaminitis Alimentary -NPO Neuro -ativan drip DVT prophylaxis at all times TTS 50 min Discussed during rounds with housestaff/nursing staff and fiance. Patient arousable and understood as well. Consult Acknowledgment - Thank you for your consult request.
--- NOTE | 2018-02-01 11:09 | CT SCAN REPORT ---
EXAMINATION: CT ANGIOGRAM OF THE CHEST WITH AND WITHOUT CONTRAST (CT PULMONARY ANGIOGRAM FOR PE) CLINICAL INFORMATION: Persistent tachycardia. Pancreatitis. Low ejection fraction. Evaluate for pulmonary embolism. COMPARISON: Chest radiograph 02/01/2018. TECHNIQUE: Prior to contrast administration, noncontrast localization images were obtained. Subsequently, multidetector volumetric imaging was performed from the thoracic inlet to below the diaphragms following the administration of 95 mL Optiray 320 intravenous contrast. No contrast reaction reported. Sagittal, coronal, and MIP oblique sagittal reformatted images were obtained on the CT workstation, uploaded to PACS, and reviewed. Total exam dose-length product 435.92 mGy-cm. FINDINGS: The timing of the contrast injection provides adequate opacification of the pulmonary arteriovascular. There is no central luminal filling defect to suggest the presence of an acute pulmonary embolism. There are small bilateral pleural effusions with associated dependent atelectasis within both lungs. The possibility of superimposed consolidative disease cannot be definitively excluded on the basis of this examination. No pneumothorax. The heart size is normal. The aortic arch apex and origins of major aortic branches are unremarkable. Visualized portions of thoracic outlet including the thyroid gland are normal. The chest wall is grossly intact. Limited visualization of the abdominal structures reveals ascites and inflammatory changes within the retroperitoneal compartment. IMPRESSION: No evidence of acute pulmonary embolism. There are bilateral pleural effusions and dependent atelectasis. The possibility of superimposed consolidative disease within both lungs cannot be definitively excluded on the basis of this examination. Ascites is partially visualized within the abdominal cavity and there are retroperitoneal inflammatory changes that coincide with the clinical history of pancreatitis. VTE: negative
--- NOTE | 2018-02-01 15:02 | Cons- Cardiology ---
General Information and HPI Consulting Request Date of Consult: 02/01/18 Requested By: Doron Holt MD History of Present Illness: This patient is a 47 year old female with history of hypertension and alcohol abuse. She presented to the ER for evaluation of a severe abdominal discomfort accompanied by nausea. At baseline this patient drinks 10 drinks per week with her last drink the day prior to admission. The patient is currently intubated and sedated but denied chest discomfort, shortness of breath and lightheadedness prior to being intubated. Workup has disclosed a highly elevated amylase and lipase consistent with pancreatitis and her cardiac enzymes are elevated. The patient is tachycardic in a sinus rhythm. An abdominal CT did not show any ductal dilitation although she does have elevated liver function tests along with ascites and pleural effusion. Her echocardiogram shows a severely decreased EF. Allergies/Medications Allergies: Coded Allergies: clarithromycin (From BIAXIN) (Severe, ANAPHYLAXIS 07/13/17) Penicillins (Intermediate, RASH 07/13/17) levofloxacin (From LEVAQUIN) (Intermediate, RASH 07/13/17) Home Med List: Lisinopril 10 MG TABLET 1 TAB PO QAM HTN (Reported) Loratadine/Pseudoephedrine (Claritin-D 24 Hour Tablet) 10 MG-240 MG TAB.ER.24H 1 TAB PO DAILY ALLERGIES (Reported) Pantoprazole Sodium (Protonix) 40 MG TABLET.DR 1 TAB PO BID GERD (Reported) Review of Systems Review of Systems: A review of systems is not obtainable. 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 MOTHER (bladder Ca). Age 67. Psychosocial History Where Do You Live? Home Who Do You Live With? child, fiancee, Bill Services at Home: None Primary Language: Sami Smoking Status: Never Smoked Living Will? no Power of River Guide/HCP? no Functional Ability ADLs Independent: dressing, eating, toileting, bathing. Ambulation: independent IADLs Independent: shopping, housework, finances, food prep, telephone, transportation , medication admin. Exam & Diagnostic Data Vital Signs and I&O Vital Signs Date Time Temp Pulse Resp B/P B/P Pulse O2 O2 Flow FiO2 Mean Ox Delivery Rate 02/01 1407 40 02/01 1400 98.9 125 21 125/75 02/01 1320 133 106/78 02/01 1200 99.9 130 18 100/78 02/01 1200 95 Ventilator 40% 02/01 1115 40 02/01 1000 98.9 130 18 105/81 02/01 0903 40 02/01 0800 98.8 130 22 110/88 02/01 0800 97 Ventilator 40% 02/01 0800 98.8 130 22 110/88 97 Ventilator 40% 02/01 0600 99.8 128 22 114/83 02/01 0530 40 02/01 0400 99.0 130 22 126/93 02/01 0400 94 Ventilator 60% 02/01 0321 60 02/01 0200 124 22 102/81 02/01 0120 80 02/01 0105 141 127/94 02/01 0100 141 22 127/94 02/01 0000 148 22 127/99 02/01 0000 98.8 148 22 130/90 90 Ventilator 100% 02/01 0000 90 Ventilator 100% 01/31 2311 100 01/31 2300 156 22 137/96 01/31 2200 160 161/108 01/31 2130 140 33 152/105 01/31 2004 136 160/120 01/31 1954 136 160/120 01/31 1953 136 160/120 01/31 1800 98.6 120 16 164/104 01/31 1526 107 18 160/98 01/31 1448 118 184/110 Intake & Output 02/01 1600 02/01 0800 02/01 0000 01/31 1600 01/31 0800 01/31 0000 Intake Total 9339 468 5005 Output Total 1600 300 Balance -926 44 7402 Intake, IV 8124 012 5297 Intake, Oral 0 0 Number 0 Bowel Movements Output, 200 Gastric Drainage Output, Urine 1400 300 Patient 172 lb 172 lb 150 lb 146 lb Weight Weight Bed scale Reported by Patient Measurement Method Physical Exam: General: WD/overweigth female; intubated and sedated HEENT: NC/AT, PERRl, EOMI Neck: no discernible JVD, no carotid bruit Heart: tachycardic with regular rhythm Lungs: clear bilaterally anteriorly Abdomen: soft, obese, NT, +ve bowel sounds Extremities: no edema Assessment/Plan Assessment/Plan * This patient was admitted for alcohol withdrawal and symptoms of pancreatitis. She was discovered to be tachycardic with positive cardiac enzymes and an echocardiogram disclosed a poor EF. * This patient was tachycardic upon initial presentation. As such, she may have a tachycardia induced cardiomyopathy or an alcohol induced cardiomyopathy. I am less inclined to think that she had an acute coronary event due to the multiple regions of hypokinesis, borderline elevation of cardiac enzymes, absence of ischemic ECG changes and chest pain. It should be noted that last year she was seen by Dr. Becerril and reportedly did not have any abnormalities so the current issues are new since that time. In the setting of a severely reduced EF, this patient will be dependent on her increased heart rate to maintain her cardiac output. This is true to an extent and a heart rate of 100-110 may be physiologic in this patient's case while a heart rate in the 150-160 range or greater may start to decrease her cardiac output and rather than being physiologic compensation for a low stroke volume may represent either withdrawal symptoms or volume loss. I would ensure that this patient is adequately sedated so as not to have serious withdrawal symptoms. Maintain adequate IV fluids while NPO for her pancreatitis and while third spacing fluids. A heart rate greater than 110 can be treated with IV lopressor 5mg as needed but I do not think we need to shoot for any slower heart rate. * Continue Lisinopril for afterload reduction if her blood pressure tolerates it. * If there is overshoot in fluid infusion manifesting as worsening pulmonary edema or breathing then Lasix can be given. * Continue antibiotic therapy for suspected aspiration pneumonia. * Replete potassium. Consult Acknowledgment - Thank you for your consult request.
--- NOTE | 2018-02-01 16:11 | ECHOCARDIOGRAM REPORT ---
ZOE BEAUCHAMP Age: 47 : 1970 Gender: F Exam Date: 02/01/2018 07:58 Exam Location: [facility] Ht (in): 67 Wt (lb): 150 BSA: 1.80 BP: 114 / 83 Ordering Physician: Alexa Aguilar MD Referring Physician: Alexa Aguilar MD Technologist: Max Blackwood [facility] Room Number: 103-1 Indications: Acute edema-lung unspecified Rhythm: Sinus Technical Quality: fair/limited FINDINGS Left Ventricle Mildly enlarged left ventricle with normal wall thickness. Severely decreased systolic function with posterior wall dyskinesis and severe hypokinesis of the proximal septal, proximal anterior and proximal lateral kenyon. There is sparing of the apex. The ejection fraction is visually estimated at 20 %. Right Ventricle The right ventricle is normal in size and function. Right Atrium The right atrium is normal in size. Left Atrium The left atrium is normal in size. The interatrial septum is intact. Mitral Valve The mitral valve is normal in structure and function. There is mild mitral regurgitation. Aortic Valve Structurally normal aortic valve without significant sclerosis or stenosis. There is no aortic regurgitation. Tricuspid Valve The tricuspid valve is normal in structure and function. There is no tricuspid regurgitation. Pulmonic Valve The pulmonic valve is poorly visualized. Pericardium Normal pericardium without effusion. Large pleural effusion. Great Vessels Normal aortic root dimension. The aortic arch and great vessels are well seen and are normal. CONCLUSIONS 1. Severely decreased EF of 20% with regional wall motion abnormalities as described above. 2. Mild left ventricular enlargement. 3. Mild mitral regurgitation. 4. Large pleural effusion. Pranav Gonzalez M.D. (Electronically Signed) Final Date: 01 Feb 2018 16:11 MEASUREMENTS (Male / Female) Normal Values 2D ECHO LV Diastolic Diameter PLAX 5.4 cm 4.2 - 5.9 / 3.9 - 5.3 cm LV Systolic Diameter PLAX 4.7 cm 2.1 - 4.0 cm LV Fractional Shortening PLAX 13.0 % 25 - 46 % LV Ejection Fraction 2D Teich 27.6 % IVS Diastolic Thickness 0.9 cm LVPW Diastolic Thickness 1.0 cm LV Relative Wall Thickness 0.4 LVOT Diameter 2.1 cm Aortic Root Diameter 2.6 cm LA Systolic Diameter LX 3.3 cm 3.0 - 4.0 / 2.7 - 3.8 cm LV Ejection Fraction MOD BP 39.2 % >= 55 % LV Cardiac Index MOD BP 3002.2 cm/minm LV Diastolic Length 4C 7.3 cm 6.9 - 10.3 cm LV Diastolic Area 4C 30.5 cm LV Diastolic Volume MOD 4C 107.0 cm LV Ejection Fraction MOD 4C 43.0 % LV Stroke Volume MOD 4C 46.0 cm LV Cardiac Index MOD 4C 3452.5 cm/minm LV Systolic Length 4C 5.8 cm LV Systolic Area 4C 20.3 cm LV Systolic Volume MOD 4C 61.0 cm LV Ejection Fraction MOD 2C 41.1 % LV Cardiac Index MOD 2C 2927.1 cm/minm LV Diastolic Volume 4C AL 108.5 cm 85 - 139 / 69 - 109 cm LV Systolic Volume 4C AL 60.0 cm LV Ejection Fraction 4C AL 44.7 % LV Stroke Volume 4C AL 48.5 cm LV Cardiac Index 4C AL 3639.1 cm/minm LV Ejection Fraction 2C AL 42.8 % LV Cardiac Index 2C AL 3075.5 cm/minm DOPPLER AV Peak Velocity 125.0 cm/s AV Peak Gradient 6.3 mmHg LVOT Peak Velocity 80.0 cm/s LVOT Peak Gradient 2.6 mmHg AV Area Cont Eq pk 2.2 cm Mitral E Point Velocity 70.6 cm/s Mitral A Point Velocity 130.0 cm/s Mitral E to A Ratio 0.5 PV Peak Velocity 113.0 cm/s PV Peak Gradient 5.1 mmHg LV E' Lateral Velocity 3.3 cm/s Mitral E to LV E' Lateral Ratio 21.3 LV E' Septal Velocity 4.2 cm/s Mitral E to LV E' Septal Ratio 16.8
--- NOTE | 2018-02-01 21:50 | ULTRASOUND REPORT ---
EXAMINATION: US ABDOMEN LIMITED CLINICAL INFORMATION: Alcoholic pancreatitis with elevated LFTs COMPARISON: None TECHNIQUE: Real-time imaging of the right upper quadrant abdominal viscera. Color Doppler exam used. FINDINGS: PANCREAS: Pancreatic head is visualized and is unremarkable. The pancreatic body and tail is obscured. LIVER: There is enlargement of the liver. Right lobe of liver measures 20 cm. There is diffuse increased echogenicity of the liver parenchyma due to fatty change. There is small volume fluid in the perihepatic region inferior to the liver. GALLBLADDER: Normal. The gallbladder is physiologically distended without evidence of stones, sludge, polyps, wall thickening or pericholecystic fluid. COMMON BILE DUCT: Normal in caliber measuring 0.6 cm in diameter. RIGHT KIDNEY: Normal. No hydronephrosis. No renal calculi or focal parenchymal lesions. The kidney measures 10.9 cm in maximum dimension. FREE FLUID: None. IMPRESSION: 1. Pancreas not well visualized. This could be further assessed with CT. 2. Hepatomegaly with diffuse fatty change of liver. Small volume of fluid at the inferior hepatic margin. No acute abnormality of gallbladder, no bile duct dilatation.
[2018-02-02] VITALS (7 sets, daily range): BP systolic 90–162; BP diastolic 60–98
[2018-02-02 04:01] LABS: ABSOLUTE BASOPHIL COUNT 0 /CUMM (0.0-0.2); ABSOLUTE EOSINOPHIL COUNT 0.1 /CUMM (0.0-0.7); ABSOLUTE GRANULOCYTE CT 12.7 /CUMM (1.4-6.5); ABSOLUTE LYMPH COUNT 1.5 /CUMM (1.2-3.4); ABSOLUTE MONOCYTE COUNT 1.3 /CUMM (0.10-0.60); BASOPHIL % 0.3 % (0.0-2.0); EOSINOPHIL % 0.4 % (0-5); GRANULOCYTE % 81.4 % (42.2-75.2); HEMATOCRIT 37.1 % (37-47); MEAN CORPUSCULAR HGB 34.1 PG (27.0-31.0); MEAN CORPUSCULAR HGB CONC 33.5 G/DL (33.0-37.0); MEAN CORPUSCULAR VOLUME 101.8 FL (81.0-99.0); MEAN PLATELET VOLUME 9.1 FL (7.4-10.4); PLATELET COUNT 122 /CUMM (130-400); RBC DISTRIBUTION WIDTH 17.1 % (11.5-14.5); RED BLOOD CELL CT 3.64 /CUMM (4.20-5.40); WHITE BLOOD CELL COUNT 15.6 /CUMM (4.8-10.8)
--- NOTE | 2018-02-02 09:22 | PN- Resident CRCU ---
Suma ROLLINS,Thais 02/02/18 0921: Subjective HPI/CRCU Issues: 1. Acute severe pancreatitis with organ failure (AHRF) - NPO 2. Acute hypoxic respiratory failure - intubated and ventialted 3. Bilateral pleural effusions with possible aspiratory pneumonia on IV unasyn 4. Transaminitis 5. Alcohol withdrawl on ativan drip' 6. Acute systolic heart failure - Tachycardia induced/stress induced/alcohol related 7. Electrolytemia 24 Hour Events: Patient remained persistently tachycardic overnight. She needed a dose of lopressor due to which her blood pressure dropped requiring boluses. She started having aggressive diuresis with an episode of fever of 102 for which her fluids changed to IV NS from RL. This morning patient was very agitated. Asleep while I examined her. Vent settings - 450/35/16/5 Currently on IV ativan and NS drips Pertinent labs white count of 15, [id number], platelets 122, granulocytosis, Na 124-->132, K 3.4, chloride 99, bicarb 25, BUN/Cr 5/0.5, glucose 218, serum osm 297, lacitic acid 2.7, calcium 7.2, AST/ALT 40/67. TSH and free T 4 normal. ABG - 7.53/27/86/22 Objective Vital Signs & I&O Last 8 Hrs of Vitals and I&O: Vital Signs Date Time Temp Pulse Resp B/P B/P Pulse O2 O2 Flow FiO2 Mean Ox Delivery Rate 02/02 1130 35 02/02 1045 99.8 02/02 1000 101.2 135 30 98/68 02/02 0943 101.2 02/02 0805 35 02/02 0800 99.1 132 23 94/72 02/02 0800 94 Ventilator 35% 02/02 0800 99.1 132 23 94/72 94 Ventilator 35% 02/02 0542 35 02/02 0400 96 Ventilator 35% 02/02 0236 35 02/02 0015 35 02/02 0000 98 Ventilator 35% 02/01 2300 99.8 120 21 100/70 98 Ventilator 35% 02/01 2252 100.9 02/01 2200 102.3 02/01 2137 136 114/75 02/01 2000 95 Ventilator 35% 02/01 1942 35 02/01 1600 99.8 130 20 100/70 02/01 1600 99.8 130 20 100/70 94 Ventilator 40% 02/01 1600 95 Ventilator 40% 02/01 1551 40 02/01 1407 40 02/01 1400 98.9 125 21 125/75 02/01 1320 133 106/78 02/01 1200 99.9 130 18 100/78 02/01 1200 95 Ventilator 40% Intake & Output 02/02 1600 02/02 0800 02/02 0000 Intake Total 2537 3070 Output Total 1725 775 Balance 812 2295 Intake, IV 2537 3070 Intake, Oral 0 0 Number 0 0 Bowel Movements Output, 0 75 Gastric Drainage Output, Urine 1725 700 Patient 84.822 kg Weight Weight Bed scale Measurement Method Exam General Appearance: no apparent distress, alert, sedated, intubated Head: atraumatic, normal appearance Neck: supple Cardiovascular: murmur, normal peripheral pulses, tachycardia Gastrointestinal: normal bowel sounds, soft, non-tender Extremities: normal inspection, normal capillary refill Skin: intact Back: normal inspection IV Drips IV Drips: IV ativan 14mg/hr now IV NS and banana bag Nutrition Nutrition: NPO Current Medications: Current Medications Sig/Lucy Start time Last Medication Dose Route Stop Time Status Admin Acetaminophen 1,000 MG Q6P PRN 02/01 2030 AC 02/02 N/A 1 UNIT IV 02/02 2029 0943 Ampicillin Sodium/ 3,000 MG Q6H 02/01 2000 AC 02/02 Sulbactam Sodium IV 0812 Sodium Chloride 100 ML Ampicillin Sodium/ 3,000 MG Q6 02/01 1200 DC 02/01 Sulbactam Sodium IV 1418 Sodium Chloride 100 ML Cyanocobalamin 1,000 MCG DAILY 02/01 0900 PO Cyanocobalamin/ 1 BAG DAILY 01/31 0932 02/01 Thiamine/Pyridoxine IV 1106 Sodium Chloride 1,000 ML Diphenhydramine HCl 1 MARIELY BID 02/01 0945 02/02 TOP 1041 Enoxaparin Sodium 40 MG DAILY 01/31 1044 02/02 SC 0835 Folic Acid 1 MG DAILY 02/01 0900 AC PO Hydromorphone HCl 0.4 MG Q6P PRN 01/31 0930 02/02 IV 0055 Labetalol HCl 100 MG .STK-MED ONE 02/01 1754 DC IV 02/01 1755 Lactated Ringer's 1,000 ML .Q8H 01/31 0830 DC 02/01 IV 1633 Lisinopril 10 MG QAM 01/31 1041 AC 01/31 PO 1053 Lorazepam 100 MG Q7H 02/01 1900 AC 02/02 Dextrose/Water 1,000 ML IV 1041 Lorazepam 100 MG Q16H 02/01 1000 DC 02/01 Dextrose/Water 1,000 ML IV 02/01 1900 0940 Magnesium Sulfate 1 GM ONCE ONE 02/01 1530 DC 02/01 Dextrose/Water 100 ML IV 02/01 1929 1600 Magnesium Sulfate 1 GM ONCE ONE 02/01 1500 DC 02/01 Dextrose/Water 100 ML IV 02/01 1859 1524 Metoprolol Tartrate 5 MG ONCE ONE 02/01 2145 DC 02/01 IV 02/01 2146 2137 Metoprolol Tartrate 5 MG ONCE ONE 02/01 1300 DC 02/01 IV 02/01 1301 1320 Multivitamins 1 TAB DAILY 02/01 0900 AC PO Pantoprazole Sodium 40 MG DAILY 01/31 1042 AC 02/02 IV 0835 Potassium Chloride 10 MEQ Q1H 02/02 0500 DC 02/02 IV 02/02 0601 0601 Potassium Chloride 10 MEQ Q1H 02/01 2245 DC 02/02 IV 02/01 2346 0000 Potassium Chloride 10 MEQ Q1H 02/01 1545 DC 02/01 IV 02/01 1646 1816 Sodium Chloride 1,000 ML Q10H 02/01 2245 AC 02/02 IV 0946 Thiamine HCl 100 MG DAILY 02/01 0900 AC PO Trimethobenzamide HCl 200 MG 4 TIMES/DAY PRN 01/31 1615 02/02 IM 0835 Antibiotics Antibiotic: Unasyn Day #: 2 IV/PO? IV If IV, Change to PO? No CXR Findings: IMPRESSION: Bilateral disease with some improvement in right lung disease and progression in left lower lung density. US Findings: 1. Pancreas not well visualized. This could be further assessed with CT. 2. Hepatomegaly with diffuse fatty change of liver. Small volume of fluid at the inferior hepatic margin. No acute abnormality of gallbladder, no bile duct dilatation. Impression/Plan Impression/Problem List Impression: 47-year-old lady chronic EtOH use present with acute onset of abdominal pain and is found to have acute pancreatitis based on elevated lipase level and CT findings of inflammatory areas around the pancreas. She transferred to ICU for the ativan drip due to elevated CIWA score was above 70, developed acute hypoxic respiratory failure fracture to nonrebreather mask and requiring intubation. Patient had received 7 L lactated Ringer prior hypoxic event, in addition to intubation patient was given IV 20 mg of Lasix and labetalol. PLAN Respiratory Acute hypoxic respiratory failure requiring intubation Fluid overload vs ARDS Patient initial chest x-ray was suggestive of pulmonary edema. Even though she was s/p 7 L of lactated Ringer that she received as part of treatment protocol for pancreatitis, given her age and no prior cardiac hx. There is some finding of airspace disease that could suggest pneumonia especially in the context of dy heaving and vomiting prior to admission - possilbe aspiratory pna. She also found to have acute decrease in EF in the setting of acute illness (unknown previous EF) and known to be tachycardic at baseline. * Continue IV hydration and Unasyn for now, await cultures. * More likely cardiac vs infectious causes, less likely ARDS. Infectious She is afebrile however with worsening leukocytosis. This could be secondary to inflammatory process vs etoh. However, the airspace disease finding on chest x- ray and in the setting of acute hypoxic respiratory failure, it is reasonable to suggest that patient could have had a pneumonia most likely aspiration pneumonia given that his frequent EtOH user. * Spiked a fever of 102 overnight * continue Unasyn 3gm q 6h. * Monitor for fever in the setting of pancreatitis. Cardiology Acute systolic heart failure Patient had EF 25-30% with severe posterior wall hypokinesis, mild LVH. Probably secondary to tachycarida, EtOH or stress induced. She might benefit catheterization to rule out coronary disease and closer follow up [facility] repeat ECHO. * Continue to hydrate given pancreatitis associated with intravenous volume depletion. * Consider small doses of lasix if overtly loaded. * Low dose lisinopril as blood pressure tolerates. * Patient is tachycardic more consistent with compensation for low EF, although there is a component of withdrawl from alcohol (OF NOTE - patient is tachycardic at baseline per family) Demand ischemia Patient noted to have mild elevation of troponin, is most likely secondary to supply demand mismatch in the setting of active withdrawal. No chest pain, EKG changes. * Trended down * Might benefit outpatient cath Persistent hypotension Patient remained persistently hypotension, Right IJ triple lumen placed at bedside by evening. Plan to start norepinephrine pressor per protocol. Pain control better with fentanyl given hypotension. Cardiology recommended dopamine, but patient remains persistently tachycardic, so deferred for now. Hematology Leukocytosis noted. Coagulation studies wnl. No thrombocytopenia. Metabolic Electrolyte deraingements of hypomagnesemia and Hypokalemia consistent with Etoh detox and acute pancreatits, will aggresively replenish mag, phos and K. We will also repeat a Lipase and RUQ scan. DINO Prerenal with hypovolemia in the setting of pancreatitis Alimentary Acute severe interstitial pancreatitis with organ failure Appears secondary to alcohol consumption. US liver ruled out gall stones, did show fatty infiltration. Lipase 7000 --> 1000. No acute changes so far. BISAP score 2 (for pelural effusion/SIRS). Abdomen is soft on exam. SIRS > 48hrs - severe. Presence of PaO2/FiO2 score of 2.4 suggest organ failure. * NPO for bowel rest * OG tube in place. * If continues to spike fevers - consider repeat scan of abdomen Transaminitis AST/ALT in 200s at admission, could be secondary to pancreatitis. trending down. Today AST/ALT 40/67. Neuro Awaken by verbal stimuli, sedated, RASS of 0, no neurological focality noted. Alcohol withdrawl CIWA protocol with IV ativan drip, scoring 0 for the past few hours - sedated. DVT prophylaxis SC lovenox Code status Full code Problem List: 1. Nausea and vomiting 2. Abdominal pain 3. Pancreatitis, acute 4. Acute respiratory failure with hypoxia 5. Systolic heart failure Pain Ratin Tomorrow's Labs & Rationales: cbc to monitor HCT and white count ICU bundle to monitor for lytes Plan DVT/Prophylaxis: pharmacological Doron Holt MD 02/02/18 0921: Attending MD Review Statement Attending Sign Off Attending Cosign Statement: I have: examined this patient, reviewed avalbl EMR data, personally reviewd images, discussd w/resident/PA/EMBALMER/FUNERAL DIRECTOR, discussed mgmt plan w/silvestre, discussed mgmt plan w/CM, discussed mgmt plan w/pt, agreed w/resident/PA/EMBALMER/FUNERAL DIRECTOR, amended to note. Other Findings: Doron Hampton M.D. have examined this patient, reviewed available EMR data, personally reviewed images, discussed with resident/PA/EMBALMER/FUNERAL DIRECTOR, discussed management plan with housestaff and nursing staff, discussed managment plan all of healthcare providers, discussed management plan with patient and/or family, agreed with resident/PA/EMBALMER/FUNERAL DIRECTOR. The past history and parts of the chart have been autopopulated. Impression 47 year old woman * acute hypoxemic respiratory failure secondary to fluid administration * acute pancreatitis * acute etoh withdrawal/dependence * elevated troponins * cardiomyopathy - EF 20% - unclear etiology, ?tachycardia induced/etoh Plan Respiratory -abg today and cxr -will evaluate ventilator settings based on abg -cta performed showing no evidence of PE, b/l effusions, atelectasis ID -102.3 tmax overnight, continue unasyn for likely aspiration pna, with hx of heaving CVS -f/u cardiology, troponins, echo, ekgs -remains tachycardic -tachycardia - PE ruled out, no pain, increase sedation Heme -f/u coags, cbcs Metabolic -replete lytes - replete k, phos, mag as needed -bowel rest -all meds IV -RUQ sono reviewed -trend LFTs for transaminitis - improving -LR switched to NS, transient hypotension with fevers -check thyroid function given tachycardia Alimentary -NPO Neuro -ativan drip - monitor lactate DVT prophylaxis at all times TTS 35 min Discussed during rounds with housestaff/nursing staff and rona. Patient arousable and understood as well.
--- NOTE | 2018-02-02 11:03 | RADIOLOGY REPORT ---
EXAMINATION: XR PORTABLE CHEST CLINICAL INFORMATION: Tachycardia. Rule out fluid overload. COMPARISON: February 01, 2018 and January 31, 2018 TECHNIQUE: Portable frontal view of the chest was obtained. FINDINGS: There are small lung volumes. Endotracheal tube is seen with tip approximately 3 cm above the megan. Nasogastric tube seen traversing to the stomach. There is some mild improvement in right lung aeration compared to prior study. There is increase in parenchymal disease with obscuration of the retrocardiac region and left hemidiaphragm. No pneumothorax identified. No definite airspace edema appreciated within the upper lobes. IMPRESSION: Bilateral disease with some improvement in right lung disease and progression in left lower lung density.
--- NOTE | 2018-02-02 16:11 | PN- Cardiology ---
Subjective Subjective: The patient remains intubated and is unable to give present history. She remains in sinus tachycardia on telemetry. Blood pressure is borderline. She continues to have sinus tachycardia Objective Vital Signs and I&Os Vital Signs Date Time Temp Pulse Resp B/P B/P Pulse O2 O2 Flow FiO2 Mean Ox Delivery Rate 02/02 1410 35 02/02 1200 101.1 124 20 94/60 02/02 1200 100 Ventilator 35% 02/02 1200 101.1 124 20 94/60 97 Ventilator 35% 02/02 1130 35 02/02 1045 99.8 02/02 1000 101.2 135 30 98/68 02/02 0945 101.2 02/02 0943 101.2 02/02 0805 35 02/02 0800 99.1 132 23 94/72 02/02 0800 94 Ventilator 35% 02/02 0800 99.1 132 23 94/72 94 Ventilator 35% 02/02 0542 35 02/02 0400 96 Ventilator 35% 02/02 0236 35 02/02 0015 35 02/02 0000 98 Ventilator 35% 02/01 2300 99.8 120 21 100/70 98 Ventilator 35% 02/01 2252 100.9 02/01 2200 102.3 02/01 2137 136 114/75 02/01 2000 95 Ventilator 35% 02/01 1942 35 Intake & Output 02/02 1600 02/02 0800 02/02 0000 02/01 1600 02/01 0800 02/01 0000 Intake Total 2065 2537 3070 1640 1208 Output Total 1650 1725 719 945 9193 Balance 359 674 0383 1215 -392 Intake, IV 2065 2537 3070 1640 1208 Intake, Oral 0 0 0 0 Number 0 0 0 0 Bowel Movements Output, 250 0 75 200 Gastric Drainage Output, Urine 1400 1725 779 168 2065 Patient 187 lb 172 lb 172 lb Weight Weight Bed scale Bed scale Measurement Method Physical Exam: Gen: NAD HEENT: normal Lungs: clear to auscultation, normal resp. effort Heart: RRR, S1, S2, no murmurs Abdomen: Soft, nontender, no masses Extremities: No clubbing, cyanosis, or edema. Neuro: Alert and oriented x 3, cranial nerves intact Current Medications: Current Medications Sig/Lucy Start time Last Medication Dose Route Stop Time Status Admin Acetaminophen 1,000 MG Q6P PRN 02/01 2030 AC 02/02 N/A 1 UNIT IV 02/02 2029 0943 Ampicillin Sodium/ 3,000 MG Q6H 02/01 2000 02/02 Sulbactam Sodium IV 1411 Sodium Chloride 100 ML Cyanocobalamin 1,000 MCG DAILY 02/01 0900 AC PO Cyanocobalamin/ 1 BAG DAILY 01/31 0932 02/02 Thiamine/Pyridoxine IV 1211 Sodium Chloride 1,000 ML Diphenhydramine HCl 1 MARIELY BID 02/01 0945 02/02 TOP 1041 Enoxaparin Sodium 40 MG DAILY 01/31 1044 02/02 SC 0835 Etomidate 10 MG ONCE ONE 02/02 1615 AC IV 02/02 1616 Folic Acid 1 MG DAILY 02/01 0900 AC PO Hydromorphone HCl 0.4 MG Q6P PRN 01/31 0930 02/02 IV 0055 Ketorolac 15 MG ONCE ONE 02/02 1230 RI 02/02 Tromethamine IV 02/02 1231 1242 Labetalol HCl 100 MG .STK-MED ONE 02/01 1754 DC IV 02/01 1755 Lactated Ringer's 1,000 ML .Q8H 01/31 0830 RI 02/01 IV 1633 Lisinopril 10 MG QAM 01/31 1041 01/31 PO 1053 Lorazepam 100 MG Q7H 02/02 2000 AC Dextrose/Water 1,000 ML IV Lorazepam 100 MG Q7H 02/01 1900 02/02 Dextrose/Water 1,000 ML IV 02/02 2159 1041 Lorazepam 100 MG Q16H 02/01 1000 RI 02/01 Dextrose/Water 1,000 ML IV 02/01 1900 0940 Magnesium Sulfate 1 GM ONCE ONE 02/01 1530 RI 02/01 Dextrose/Water 100 ML IV 02/01 1929 1600 Magnesium Sulfate 1 GM ONCE ONE 02/01 1500 RI 02/01 Dextrose/Water 100 ML IV 02/01 1859 1524 Metoprolol Tartrate 5 MG ONCE ONE 02/01 2145 DC 02/01 IV 02/01 2146 2137 Multivitamins 1 TAB DAILY 02/01 0900 AC PO Pantoprazole Sodium 40 MG DAILY 01/31 1042 02/02 IV 0835 Potassium Chloride 10 MEQ Q1H 02/02 0500 RI 02/02 IV 02/02 0601 0601 Potassium Chloride 10 MEQ Q1H 02/01 2245 DC 02/02 IV 02/01 2346 0000 Potassium Chloride 10 MEQ Q1H 02/01 1545 DC 02/01 IV 02/01 1646 1816 Sodium Chloride 1,000 ML Q10H 02/01 2245 AC 02/02 IV 0946 Thiamine HCl 100 MG DAILY 02/01 0900 AC PO Trimethobenzamide HCl 200 MG 4 TIMES/DAY PRN 01/31 1615 02/02 IM 0835 Results Last 48 Hrs of Labs/Mics: Laboratory Tests 02/02/18 1440: Sodium Pending, Potassium Pending, Chloride Pending, Carbon Dioxide Pending, Anion Gap Pending, BUN Pending, Creatinine Pending, Glucose Pending, Calcium Pending, Phosphorus Pending, Magnesium Pending, Total Bilirubin Pending, AST Pending, ALT Pending, Albumin Pending 02/02/18 1210: Lactic Acid 2.3 H 02/02/18 1100: pH 7.53 H, pCO2 27 L, pO2 86, HCO3 22, ABG O2 Sat (Measured) 96.0, Carboxyhemoglobin 1.0 L, O2 Concentration % 35, Respiration Rate 16, O2 Delivery Method VENT, Vent Mode AC, Expiratory Pressure 5, Tidal Volume 450, Phlebotomy Draw Site LEFT RADIAL 02/02/18 0908: Lactic Acid 2.7 H 02/02/18 0345: Anion Gap 9, Estimated GFR > 60, Glucose 218 H, Serum Osmolality 297 H, Calcium 7.2 L, Phosphorus 2.9, Magnesium 1.9, Total Bilirubin 0.8, AST 40 H, ALT 67 H, Albumin 2.3 L, TSH 2.210, Free T4 1.29, CBC w Diff NO MAN DIFF REQ, RBC 3.64 L, MCV 101.8 H, MCH 34.1 H, MCHC 33.5, RDW 17.1 H, MPV 9.1, Gran % 81.4 H, Lymphocytes % 9.7 L, Monocytes % 8.2, Eosinophils % 0.4, Basophils % 0.3, Absolute Granulocytes 12.7 H, Absolute Lymphocytes 1.5, Absolute Monocytes 1.3 H, Absolute Eosinophils 0.1, Absolute Basophils 0 02/02/18 0318: Urine Osmolality 158 L, Ur Random Creatinine 20.5, Ur Random Sodium 6 L, Ur Random Potassium 8.6, Fraction Sodium Excret 0.1 02/01/182023: Anion Gap 9, Estimated GFR > 60, Glucose 316 H, Calcium 7.1 L, Phosphorus 2.7, Magnesium 2.0, Total Bilirubin 0.9, AST 52 H, ALT 73 H, Albumin 2.5 L 02/01/18 1735: pH 7.50 H, pCO2 33 L, pO2 86, HCO3 25, ABG O2 Sat (Measured) 95.0 L, P-50 ( Temp Corrected) Y, Carboxyhemoglobin 0.9 L, O2 Concentration % 40%, Temperature 99.3, Respiration Rate 16, O2 Delivery Method VENT, Vent Mode CMV, Expiratory Pressure 5, Tidal Volume 450, Phlebotomy Draw Site RIGHT RADIAL 02/01/18 1504: Lactic Acid 2.0 02/01/18 1130: Troponin I Cancelled 02/01/18 1115: Lactic Acid 2.2 H, Magnesium 1.1 L, Troponin I 0.50 *H, Lipase 1078 H 02/01/18 0808: Lactic Acid 2.9 H 02/01/18 0555: pH 7.58 H, pCO2 24 L, pO2 64 L, HCO3 22, ABG O2 Sat (Measured) 94.0 L, P-50 (Temp Corrected) N, Carboxyhemoglobin 1.1 L, O2 Concentration % .40, Respiration Rate 22, O2 Delivery Method VENT, Vent Mode A/C, Expiratory Pressure 5, Tidal Volume 500, Phlebotomy Draw Site RIGHT BRACHIAL 02/01/18 0520: Troponin I 0.80 *H 02/01/18 0520: Lactic Acid Cancelled 02/01/18 0520: Lactic Acid 2.9 H 02/01/18 0245: Lactic Acid 2.6 H 02/01/18 0245: Anion Gap 12, Estimated GFR > 60, BUN/Creatinine Ratio 16.0, Phosphorus 3.1, Magnesium 0.8 *L, Kac-J-Wxtxyqbhtcv Pept 2850 H, CBC w Diff MAN DIFF ORDERED, RBC 4.16 L, MCV 99.6 H, MCH 34.0 H, MCHC 34.2, RDW 16.7 H, MPV 8.6, Gran % 86.9 H, Lymphocytes % 6.4 L, Monocytes % 6.6, Eosinophils % 0.1, Basophils % 0 , Absolute Granulocytes 13.9 H, Segmented Neutrophils 90 H, Band Neutrophils 2 , Absolute Lymphocytes 1.0 L, Lymphocytes 5 L, Monocytes 3, Absolute Monocytes 1.0 H, Absolute Eosinophils 0, Absolute Basophils 0, Platelet Estimate ADEQUATE , Normochromic RBCs VERIFIED, Poikilocytosis 1+, Ovalocytes FEW, Stomatocytes 1+ , Fld Total RBCs Counted 100 01/31/182304: Troponin I 0.63 *H 01/31/182304: Lactic Acid 2.6 H 01/31/182249: pH 7.40, pCO2 34 L, pO2 54 L, HCO3 21, ABG O2 Sat (Measured) 85.0 L, P-50 ( Temp Corrected) N, Carboxyhemoglobin 1.2 L, O2 Concentration % 100%, Temperature 98.6, Respiration Rate 22, O2 Delivery Method VENT, Vent Mode VC-AC, Expiratory Pressure 10, Tidal Volume 500, Phlebotomy Draw Site LEFT RADIAL 01/31/181947: Lactic Acid Cancelled 01/31/181821: Lactic Acid 2.9 H 01/31/181821: Anion Gap 15, Estimated GFR > 60, BUN/Creatinine Ratio 17.5, Total Bilirubin 1.0 , Direct Bilirubin 0.2, AST 129 H, ALT 145 H, Alkaline Phosphatase 87, Total Protein 5.9 L, Albumin 3.7, Prolactin 26.0 H Microbiology 02/01 001 UPPER RESP: Surveillance Culture - COMP 02/01 15 GI: Surveillance Culture - COMP Recent Imaging Studies: Echocardiogram 02/01/18: 1. Severely decreased EF of 20% with regional wall motion abnormalities as described above. 2. Mild left ventricular enlargement. 3. Mild mitral regurgitation. 4. Large pleural effusion. Assessment/Plan Assessment/Plan Assessment: 1. Pancreatitis 2. Alcohol withdrawal 3. Sinus tachycardia 4. 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 Possibly secondary to tachycardia. 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 Takotsubo cardiomyopathy is in the differential diagnosis. Plan: * Antibiotics as per the medical service * Hold cardiac medications for hypotension Continue telemetry? Yes
--- NOTE | 2018-02-02 19:15 | Procedure ---
Minor Surgical Procedure Note Date of Procedure: 02/02/18 Procedure Note: Right internal jugular central line placed under ultrasound guidance and sterile seldinger technique. Patient paralyzed with rocuronium due to ineffectiveness of etomidate. No immediate complications. Surgeon: Casi Ontiveros M.D. Digital Cartographic Technician: GENET Cruz CXR pending.
--- NOTE | 2018-02-02 19:41 | RADIOLOGY REPORT ---
EXAMINATION: CHEST 1 VIEW CLINICAL INFORMATION: Line placement. COMPARISON: Multiple prior exams are reviewed. The most recent is from the same day obtained at 0930 hours. TECHNIQUE: An AP view of the chest was obtained at 1916 hours. FINDINGS: The cardiac silhouette is stable. The tip of the endotracheal tube is approximately 4.5 cm above the megan. An enteric tube is in unchanged position. There has been interval placement of a right central venous line. The tip terminates within the right atrium. There is persistent retrocardiac airspace disease. There is improved aeration at the right lung base with persistent opacification. There is mild interstitial prominence present throughout both lungs. There are small bilateral pleural effusions. The osseous structures are stable. IMPRESSION: Lines and tubes in place as stated above. Persistent retrocardiac airspace disease. Improved aeration at the right lung base. Small bilateral pleural effusions. Interval placement of right central venous line.
--- NOTE | 2018-02-02 20:24 | Event Note ---
Event Note Event Note: Right IJ Central line placement failure I tried to put a central line with surgical GENET Davila. Patient was preped, drapped, sedated with etomidate. Unfortunately due to thick skin and sliding of IJ, we were unable to penetrate. Patient was very agitated and moving all over - unable to perform and terminated abruptly.
--- NOTE | 2018-02-02 20:52 | RADIOLOGY REPORT ---
EXAMINATION: XR PORTABLE CHEST CLINICAL INFORMATION: Central line placement COMPARISON: Same day radiographs TECHNIQUE: Portable frontal view of the chest was obtained. FINDINGS: The cardiac mediastinal contours appear stable. A central line from a right internal jugular venous approach tip projects at the level of the caval atrial junction, improved in positioning. Prominence of the upper mediastinum and hilar regions is unchanged and most likely positional. Bibasilar atelectasis and obscuration of the costophrenic angles is a stable finding as well. The endotracheal tube remains approximately 4-5 cm above the megan. IMPRESSION: Right-sided central venous catheter tip projects at the caval atrial junction in good position. Persistent bibasilar atelectasis versus consolidation, left greater than right. Likely small bilateral pleural effusions.
[2018-02-03] VITALS (9 sets, daily range): BP systolic 102–117; BP diastolic 67–83
[2018-02-03 04:41] LABS: ABSOLUTE BASOPHIL COUNT 0.1 /CUMM (0.0-0.2); ABSOLUTE EOSINOPHIL COUNT 0.2 /CUMM (0.0-0.7); ABSOLUTE GRANULOCYTE CT 8.6 /CUMM (1.4-6.5); ABSOLUTE MONOCYTE COUNT 1.3 /CUMM (0.10-0.60); BASOPHIL % 0.6 % (0.0-2.0); EOSINOPHIL % 2.1 % (0-5); GRANULOCYTE % 76.8 % (42.2-75.2); HEMATOCRIT 34.9 % (37-47); MEAN CORPUSCULAR HGB CONC 33.1 G/DL (33.0-37.0); MEAN CORPUSCULAR VOLUME 102.6 FL (81.0-99.0); MEAN PLATELET VOLUME 9.4 FL (7.4-10.4); PLATELET COUNT 147 /CUMM (130-400); RBC DISTRIBUTION WIDTH 17.1 % (11.5-14.5); RED BLOOD CELL CT 3.41 /CUMM (4.20-5.40); WHITE BLOOD CELL COUNT 11.2 /CUMM (4.8-10.8)
--- NOTE | 2018-02-03 08:33 | PN- Resident CRCU ---
Denita ROLLINS,Sharonda 02/03/18 0832: Subjective HPI/CRCU Issues: 1. Acute severe pancreatitis with organ failure (AHRF) - NPO 2. Acute hypoxic respiratory failure - intubated and ventialted 3. Bilateral pleural effusions with possible aspiratory pneumonia on IV unasyn 4. Transaminitis 5. Alcohol withdrawal/dependence on ativan drip 6. Acute systolic heart failure/cardiomyopathy - Tachycardia induced/stress induced/alcohol related 7. Abnormal electrolytes 24 Hour Events: Awake and alert in bed with ETtube in place. Able to mumble words and answer questions despite the ET tube. She feels uncomfortable and wants it out. She denies any pain. Improving tachycardia and she her temp is improving. Continues to be on Ativan drip, IV Unasyn and IVF NS @100cc/hr. Has been requiring as needed doses of IV fentanyl for agitation. Objective Vital Signs & I&O Last 8 Hrs of Vitals and I&O: Vital Signs Date Time Temp Pulse Resp B/P B/P Pulse O2 O2 Flow FiO2 Mean Ox Delivery Rate 02/03 0840 30 02/03 0800 98.8 115 24 110/72 02/03 0800 98.8 115 24 110/72 24 Ventilator 30% 02/03 0800 94 Ventilator 30% 02/03 0558 30 02/03 0400 99 Ventilator 35% 02/03 0312 30 02/03 0052 30 05 0000 99 Ventilator 35% 02/03 0000 99.2 118 17 102/71 99 Ventilator 35% 02/02 2343 99.2 117 18 102/71 99 Ventilator 02/02 2212 30 02/03 2000 93 Ventilator 35% 02/02 1940 99.0 130 20 162/98 96 Ventilator / 1930 35 / 1800 114 18 90/60 05/ 1650 35 05/ 1600 98.3 122 26 96/62 05/ 1600 98.3 122 26 96/62 96 Ventilator 35% 02/02 1600 96 Ventilator 35% 05 1410 35 05/ 1200 101.1 124 20 94/60 05/ 1200 100 Ventilator 35% 05/ 1200 101.1 124 20 94/60 97 Ventilator 35% 05/ 1130 35 02/02 1045 99.8 Intake & Output 02/03 1600 02/03 0800 05 0000 Intake Total 1931 2293 Output Total 430 1150 Balance 1501 1143 Intake, IV 1931 2293 Intake, Oral 0 0 Number 0 0 Bowel Movements Output, 125 350 Gastric Drainage Output, Urine 305 800 Patient 192 lb Weight Weight Bed scale Measurement Method Laboratory Tests 02/03 02/02 02/02 0335 1440 1210 Chemistry Sodium (137 - 145 mmol/L) 133 L 135 L Potassium (3.5 - 5.1 mmol/L) 3.6 3.1 L Chloride (98 - 107 mmol/L) 101 100 Carbon Dioxide (22 - 30 mmol/L) 25 25 Anion Gap (5 - 16) 7 10 BUN (7 - 17 mg/dL) 7 5 L Creatinine (0.5 - 1.0 mg/dL) 0.5 0.6 Estimated GFR (>60 ml/min) > 60 > 60 Glucose (65 - 99 mg/dL) 133 H 156 H Lactic Acid (0.7 - 2.1 mmol/L) 2.3 H Calcium (8.4 - 10.2 mg/dL) 7.2 L 7.2 L Phosphorus (2.5 - 4.5 mg/dL) 2.4 L 2.5 Magnesium (1.6 - 2.3 mg/dL) 1.9 1.8 Total Bilirubin (0.2 - 1.3 mg/dL) 0.8 0.8 AST (14 - 36 U/L) 22 27 ALT (9 - 52 U/L) 42 54 H Kam-J-Jxtyoaekmer Pept (<125 pg/mL) 5140 H Albumin (3.5 - 5.0 g/dL) 2.1 L 2.2 L Hematology CBC w Diff NO MAN DIFF REQ WBC (4.8 - 10.8 /CUMM) 11.2 H RBC (4.20 - 5.40 /CUMM) 3.41 L Hgb (12.0 - 16.0 G/DL) 11.6 L Hct (37 - 47 %) 34.9 L MCV (81.0 - 99.0 FL) 102.6 H MCH (27.0 - 31.0 PG) 34.0 H MCHC (33.0 - 37.0 G/DL) 33.1 RDW (11.5 - 14.5 %) 17.1 H Plt Count (130 - 400 /CUMM) 147 MPV (7.4 - 10.4 FL) 9.4 Gran % (42.2 - 75.2 %) 76.8 H Lymphocytes % (20.5 - 51.1 %) 9.0 L Monocytes % (1.7 - 9.3 %) 11.5 H Eosinophils % (0 - 5 %) 2.1 Basophils % (0.0 - 2.0 %) 0.6 Absolute Granulocytes (1.4 - 6.5 /CUMM) 8.6 H Absolute Lymphocytes (1.2 - 3.4 /CUMM) 1.0 L Absolute Monocytes (0.10 - 0.60 /CUMM) 1.3 H Absolute Eosinophils (0.0 - 0.7 /CUMM) 0.2 Absolute Basophils (0.0 - 0.2 /CUMM) 0.1 02/02 1100 Blood Gas pH (7.35 - 7.45 PH) 7.53 H pCO2 (35 - 45 TORR) 27 L pO2 (80 - 100 TORR) 86 HCO3 (21 - 28 MEQ/L) 22 ABG O2 Sat (Measured) (>96.0 %) 96.0 Carboxyhemoglobin (1.5 - 5.0 %) 1.0 L O2 Concentration % 35 Respiration Rate (BPM) 16 O2 Delivery Method VENT Vent Mode AC Expiratory Pressure (CMH2O/P) 5 Tidal Volume (CC) 450 Miscellaneous Phlebotomy Draw Site LEFT RADIAL Exam General Appearance: well developed/nourished, no apparent distress, intubated, uncomfortable with ET tube Neck: Rt IJ in place Respiratory: normal breath sounds, lungs clear Cardiovascular: regular rate/rhythm, tachycardia Gastrointestinal: normal bowel sounds, non-tender Extremities: no edema Skin: intact Central Line Site: RT IJ Date In: 02/02/18 Current Medications: Current Medications Sig/Lucy Start time Last Medication Dose Route Stop Time Status Admin Acetaminophen 1,000 MG Q6P PRN 02/01 2030 DC 02/02 N/A 1 UNIT IV 02/02 2029 09 Ampicillin Sodium/ 3,000 MG Q6H 02/02 2000 AC 02/03 Sulbactam Sodium IV 0742 Sodium Chloride 100 ML Cyanocobalamin 1,000 MCG DAILY 02/01 0900 AC PO Cyanocobalamin/ 1 BAG DAILY 01/31 0932 DC 02/02 Thiamine/Pyridoxine IV 1211 Sodium Chloride 1,000 ML Diphenhydramine HCl 1 MARIELY BID 02/01 0945 AC 02/03 TOP 0809 Enoxaparin Sodium 40 MG DAILY 01/31 1044 AC 02/03 SC 0743 Etomidate 5 MG ONCE ONE 02/02 1700 DC 02/02 IV 02/02 1701 1630 Etomidate 10 MG ONCE ONE 02/02 1615 DC 02/02 IV 02/02 1616 1622 Fentanyl Citrate 25 MCG ONCE ONE 02/03 0700 DC 02/03 IV 02/03 0701 0700 Fentanyl Citrate 1,000 MCG Q24H 02/03 0245 CAN Dextrose/Water 250 ML IV Fentanyl Citrate 25 MCG ONCE ONE 02/03 0245 DC 02/03 IV 02/03 0246 0350 Folic Acid 1 MG DAILY 02/01 0900 AC PO Hydromorphone HCl 0.4 MG Q6P PRN 01/31 0930 AC 02/03 IV 0822 Ketorolac 15 MG ONCE ONE 02/02 1230 DC 02/02 Tromethamine IV 02/02 1231 1242 Lisinopril 10 MG QAM 01/31 1041 01/31 PO 1053 Lorazepam 100 MG Q9H 02/03 0300 AC 02/03 Dextrose/Water 1,000 ML IV 0443 Lorazepam 100 MG Q7H 02/02 2000 DC 02/02 Dextrose/Water 1,000 ML IV 02/03 0259 1810 Lorazepam 100 MG Q7H 02/01 1900 DC 02/02 Dextrose/Water 1,000 ML IV 02/02 2159 1041 Magnesium Sulfate 1 GM ONCE ONE 02/02 1715 DC 02/02 Dextrose/Water 100 ML IV 02/02 2114 1746 Multivitamins 1 TAB DAILY 02/01 0900 AC PO Norepinephrine 4 MG Q24H 02/02 1745 AC Dextrose/Water 250 ML IV Pantoprazole Sodium 40 MG DAILY 01/31 1042 AC 02/03 IV 0743 Potassium Chloride 20 MEQ Q1H 02/03 0515 DC 02/03 IV 02/03 0616 0632 Potassium Chloride 20 MEQ ONCE ONE 02/03 2000 DC 02/02 IV 02/02 2001 215 Potassium Chloride 20 MEQ ONCE ONE 02/02 1930 DC 02/02 IV 02/02 193 2104 Potassium Chloride 10 MEQ Q1H 02/02 1715 DC IV 02/02 1816 Potassium Phosphate 15 mMol ONE ONE 02/03 0515 DC 02/03 Sodium Chloride 250 ML IV 02/03 0919 0757 Sodium Chloride 1,000 ML Q10H 02/01 2245 02/03 IV 0053 Thiamine HCl 100 MG DAILY 02/01 0900 AC PO Trimethobenzamide HCl 200 MG 4 TIMES/DAY PRN 01/31 1615 02/02 IM 0835 Vecuronium [place] 8.4 MG ONCE PRN 02/02 1700 DC 02/02 IV 02/02 2300 1958 Antibiotics Antibiotic: unasyn Day #: 2 IV/PO? IV Impression/Plan Impression/Problem List Impression: 47-year-old lady chronic EtOH use present with acute onset of abdominal pain and is found to have acute pancreatitis based on elevated lipase level and CT findings of inflammatory areas around the pancreas. She transferred to ICU for the ativan drip due to elevated CIWA score was above 70, developed acute hypoxic respiratory failure fracture to nonrebreather mask and requiring intubation. Vent settings: AC/16/450/30/5 Problem List * acute hypoxemic respiratory failure secondary to fluid administration * acute pancreatitis * acute etoh withdrawal/dependence * elevated troponins * cardiomyopathy - EF 20% - unclear etiology, ?tachycardia induced/etoh Plan Respiratory Acute hypoxemic respiratory failure secondary to fluid administration vs aspiration pneumonia -Will check abg today and cxr this morning -She is awake and uncomfortable with ET tube; may trial her with removal of her ET tube if ABG and CXR are markedly improved -Daily CXR while intubated ID -Temp was 98.8 this morning. Tmax 101.2 in the last 24hrs -CXR yesterday showed persistent bibasilar atelectasis versus consolidation, left greater than right. Likely small bilateral pleural effusions. -Repeat CXR this morning -Continue unasyn for now CVS -Cardiomyopathy of unknown etiology ? tachycardia induced, vs alchol vs takosubo 's (EF 20 % on ECHO) -Hypotension resolved; BP improved -She remains tachycardic but improving; cause of tachycardia unknown -f/u cardiology recommendations Heme -Leukocytosis improving-down to 11.2 from 15.6 yesterday -Mild anemia-possibly from blood draws -Daily CBC monitoring Metabolic -Mild Hyponatremia 133 today -She is on NS IVF @100cc/hr -Daily ICU bundle -Replete electrolytes -TFT normal Alimentary/GI -Acute pancreatitis likely from alcohol; improving -Continue fluid hydration, control pain if any -Keep NPO for now -Re-evaluate for nutrition in AM Neuro -CIWA scores remain 0 -Continue ativan drip for possible alcohol withdrawal and sedation- monitor lactate -Continue Fentanyl IV boluses as needed for agitation. Fentanyl drip is not used due to risk of precipitating vol. overload 2/2 her very low EF. DVT prophylaxis-SC lovenox Problem List: 1. Acute respiratory failure with hypoxia 2. Systolic heart failure 3. Pancreatitis, acute Pain Ratin Tomorrow's Labs & Rationales: cbc, icu bundle Plan DVT/Prophylaxis: pharmacological Doron Holt MD 02/03/18 0902: Attending MD Review Statement Attending Sign Off Attending Cosign Statement: I have: examined this patient, reviewed avalbl EMR data, personally reviewd images, discussd w/resident/PA/CARTRIDGE FEEDER, discussed mgmt plan w/silvestre, discussed mgmt plan w/CM, discussed mgmt plan w/pt, agreed w/resident/PA/CARTRIDGE FEEDER, amended to note. Other Findings: I, Doron Holt M.D. have examined this patient, reviewed available EMR data, personally reviewed images, discussed with resident/PA/CARTRIDGE FEEDER, discussed management plan with housestaff and nursing staff, discussed managment plan all of healthcare providers, discussed management plan with patient and/or family, agreed with resident/PA/CARTRIDGE FEEDER. The past history and parts of the chart have been autopopulated. Impression 47 year old woman * acute hypoxemic respiratory failure secondary to fluid administration and atelectasis, underlying likely aspiration pneumonia - IMPROVING * acute pancreatitis - resolving * acute etoh withdrawal/dependence - on ativan gtt * elevated troponins/cardiomyopathy - EF 20% - unclear etiology, ?tachycardia induced/etoh related, also ?takotsubo's cardiomyopathy Plan Respiratory -abg today and cxr 02/03 -continue mecahnical ventilation -if cxr significantly improving, will perform spontaneous breathing trials ID -defervesced, continue unasyn for likely aspiration pna CVS -f/u cardiology -tachycardia slightly imrpoved -? need for cath, further workup for cardiomyopathy per cardiology Heme -f/u coags, cbcs Metabolic -replete lytes - replete k, phos, mag as needed -bowel rest -all meds IV -transaminitis resolved Alimentary -NPO - will evaluate for nutrition with a nutrition consultation tomorrow Neuro -ativan drip -fentanyl if needed DVT prophylaxis at all times TTS 35 min
--- NOTE | 2018-02-03 11:18 | PN- Cardiology ---
Subjective Subjective: The patient was hypotensive overnight. A central line was placed so that pressor therapy could be given, however the blood pressure improved and pressors were not started. The patient is awake on the ventilator. She remains in sinus tachycardia with heart rate of 110. Further history is not obtainable because she is intubated. Objective Vital Signs and I&Os Vital Signs Date Time Temp Pulse Resp B/P B/P Pulse O2 O2 Flow FiO2 Mean Ox Delivery Rate 02/03 0840 30 02/03 0800 98.8 115 24 110/72 / 0800 98.8 115 24 110/72 24 Ventilator 30% 02/03 0800 94 Ventilator 30% / 0558 30 02/03 0400 99 Ventilator 35% 02/03 0312 30 02/03 0052 30 05 0000 99 Ventilator 35% 02/03 0000 99.2 118 17 102/71 99 Ventilator 35% 02/02 2343 99.2 117 18 102/71 99 Ventilator / 2212 30 02/02 2000 93 Ventilator 35% 02/02 1940 99.0 130 20 162/98 96 Ventilator 02/02 1930 35 05/ 1800 114 18 90/60 05/ 1650 35 05/ 1600 98.3 122 26 96/62 05/19 1600 98.3 122 26 96/62 96 Ventilator 35% / 1600 96 Ventilator 35% 02/02 1410 35 / 1200 101.1 124 20 94/60 05/ 1200 100 Ventilator 35% 02/02 1200 101.1 124 20 94/60 97 Ventilator 35% 02/02 1130 35 Intake & Output 02/03 1600 20 0800 05/ 0000 02/02 1600 02/02 0800 05 0000 Intake Total 1930 2293 6 2537 3070 Output Total 430 1150 1650 1725 775 Balance 1501 1143 914 601 8373 Intake, IV 1930 2292 2065 2537 3070 Intake, Oral 0 0 0 0 0 Number 0 0 0 0 Bowel Movements Output, 125 350 250 0 75 Gastric Drainage Output, Urine 092 450 8395 1725 700 Patient 192 lb 187 lb Weight Weight Bed scale Bed scale Measurement Method Physical Exam: Gen: The patient is intubated and partially sedated but awake HEENT: Normal nose, ears, and oropharynx. Pupils equal bilaterally. Conjunctiva normal. Neck: Supple with no JVD, no masses, and no thyromegaly Lungs: Decreased breath sounds. Decreased respiratory effort on the ventilator Heart: RRR, S1, S2, no murmurs. No peripheral edema, 2+ pulses in the lower extremities bilaterally Abdomen: Soft, nontender, no masses. No hepatomegaly. No splenomegaly Extremities: No clubbing or cyanosis. Normal muscle strength in the upper and lower extremities Skin: Normal skin turgor with no skin ulcers or lesions noted. Neuro: Cranial nerves intact. Sensation intact Psych: Alert and oriented x 3 with appropriate affect Current Medications: Current Medications Sig/Lucy Start time Last Medication Dose Route Stop Time Status Admin Acetaminophen 1,000 MG Q6P PRN 02/01 2030 DC 02/02 N/A 1 UNIT IV 02/02 2029 0943 Ampicillin Sodium/ 3,000 MG Q6H 02/01 2000 AC 02/03 Sulbactam Sodium IV 0742 Sodium Chloride 100 ML Cyanocobalamin 1,000 MCG DAILY 02/01 0900 AC PO Cyanocobalamin/ 1 BAG DAILY 01/31 0932 DC 02/02 Thiamine/Pyridoxine IV 1211 Sodium Chloride 1,000 ML Diphenhydramine HCl 1 MARIELY BID 02/01 0945 02/03 TOP 0809 Enoxaparin Sodium 40 MG DAILY 01/31 1044 AC 02/03 SC 0743 Etomidate 5 MG ONCE ONE 02/02 1700 DC 02/02 IV 02/02 1701 1630 Etomidate 10 MG ONCE ONE 02/02 1615 DC 02/02 IV 02/02 1616 1622 Fentanyl Citrate 25 MCG ONCE ONE 02/03 0700 DC 02/03 IV 02/03 0701 0700 Fentanyl Citrate 1,000 MCG Q24H 02/03 0245 CAN Dextrose/Water 250 ML IV Fentanyl Citrate 25 MCG ONCE ONE 02/03 0245 DC 02/03 IV 02/03 0246 0350 Folic Acid 1 MG DAILY 02/01 0900 AC PO Hydromorphone HCl 0.4 MG Q6P PRN 01/31 0930 AC 02/03 IV 0822 Ketorolac 15 MG ONCE ONE 02/02 1230 DC 02/02 Tromethamine IV 02/02 1231 1242 Lisinopril 10 MG QAM 01/31 1041 AC 01/31 PO 1053 Lorazepam 100 MG Q9H 02/03 0300 AC 02/03 Dextrose/Water 1,000 ML IV 0443 Lorazepam 100 MG Q7H 02/03 2000 MI 02/02 Dextrose/Water 1,000 ML IV 02/03 0259 1810 Lorazepam 100 MG Q7H 02/01 1900 MI 02/02 Dextrose/Water 1,000 ML IV 02/02 215 104 Magnesium Sulfate 1 GM ONCE ONE 02/02 171 DC 02/02 Dextrose/Water 100 ML IV 02/02 2114 1746 Multivitamins 1 TAB DAILY 02/01 09 PO Norepinephrine 4 MG Q24H 02/02 1745 Dextrose/Water 250 ML IV Pantoprazole Sodium 40 MG DAILY 01/31 1042 AC 02/03 IV 0743 Potassium Chloride 20 MEQ Q1H 02/03 05 MI 02/03 IV 02/03 0616 0632 Potassium Chloride 20 MEQ ONCE ONE 02/03 2000 DC 02/02 IV 02/02 2001 215 Potassium Chloride 20 MEQ ONCE ONE 02/02 1930 DC 02/02 IV 02/02 193 2104 Potassium Chloride 10 MEQ Q1H 02/02 171 DC IV 02/02 1816 Potassium Phosphate 15 mMol ONE ONE 02/03 0515 MI 02/03 Sodium Chloride 250 ML IV 02/03 09 0757 Sodium Chloride 1,000 ML Q10H 02/01 2245 02/03 IV 0053 Thiamine HCl 100 MG DAILY 02/01 09 PO Trimethobenzamide HCl 200 MG 4 TIMES/DAY PRN 01/31 1615 02/02 IM 0835 Vecuronium [place] 8.4 MG ONCE PRN 02/02 1700 DC 02/02 IV 02/02 2300 1958 Results Last 48 Hrs of Labs/Mics: Laboratory Tests 02/03/18 1100: Sodium Cancelled, Potassium Cancelled, Chloride Cancelled, Carbon Dioxide Cancelled, Anion Gap Cancelled, BUN Cancelled, Creatinine Cancelled, Glucose Cancelled, Calcium Cancelled, Phosphorus Cancelled, Magnesium Cancelled, Total Bilirubin Cancelled, AST Cancelled, ALT Cancelled, Albumin Cancelled 02/03/18 0335: Anion Gap 7, Estimated GFR > 60, Glucose 133 H, Calcium 7.2 L, Phosphorus 2.4 L, Magnesium 1.9, Total Bilirubin 0.8, AST 22, ALT 42, Albumin 2.1 L, CBC w Diff NO MAN DIFF REQ, RBC 3.41 L, MCV 102.6 H, MCH 34.0 H, MCHC 33.1, RDW 17.1 H, MPV 9.4, Gran % 76.8 H, Lymphocytes % 9.0 L, Monocytes % 11.5 H, Eosinophils % 2.1, Basophils % 0.6, Absolute Granulocytes 8.6 H, Absolute Lymphocytes 1.0 L, Absolute Monocytes 1.3 H, Absolute Eosinophils 0.2, Absolute Basophils 0.1 02/02/18 1440: Anion Gap 10, Estimated GFR > 60, Glucose 156 H, Calcium 7.2 L, Phosphorus 2.5 , Magnesium 1.8, Total Bilirubin 0.8, AST 27, ALT 54 H, Ypn-H-Zpzdaxzdhag Pept 5140 H, Albumin 2.2 L 02/02/18 1210: Lactic Acid 2.3 H 02/02/18 1100: pH 7.53 H, pCO2 27 L, pO2 86, HCO3 22, ABG O2 Sat (Measured) 96.0, Carboxyhemoglobin 1.0 L, O2 Concentration % 35, Respiration Rate 16, O2 Delivery Method VENT, Vent Mode AC, Expiratory Pressure 5, Tidal Volume 450, Phlebotomy Draw Site LEFT RADIAL 02/02/18 0908: Lactic Acid 2.7 H 02/02/18 0345: Anion Gap 9, Estimated GFR > 60, Glucose 218 H, Serum Osmolality 297 H, Calcium 7.2 L, Phosphorus 2.9, Magnesium 1.9, Total Bilirubin 0.8, AST 40 H, ALT 67 H, Albumin 2.3 L, TSH 2.210, Free T4 1.29, CBC w Diff NO MAN DIFF REQ, RBC 3.64 L, MCV 101.8 H, MCH 34.1 H, MCHC 33.5, RDW 17.1 H, MPV 9.1, Gran % 81.4 H, Lymphocytes % 9.7 L, Monocytes % 8.2, Eosinophils % 0.4, Basophils % 0.3, Absolute Granulocytes 12.7 H, Absolute Lymphocytes 1.5, Absolute Monocytes 1.3 H, Absolute Eosinophils 0.1, Absolute Basophils 0 02/02/18 0318: Urine Osmolality 158 L, Ur Random Creatinine 20.5, Ur Random Sodium 6 L, Ur Random Potassium 8.6, Fraction Sodium Excret 0.1 02/01/182023: Anion Gap 9, Estimated GFR > 60, Glucose 316 H, Calcium 7.1 L, Phosphorus 2.7, Magnesium 2.0, Total Bilirubin 0.9, AST 52 H, ALT 73 H, Albumin 2.5 L 02/01/18 1735: pH 7.50 H, pCO2 33 L, pO2 86, HCO3 25, ABG O2 Sat (Measured) 95.0 L, P-50 ( Temp Corrected) Y, Carboxyhemoglobin 0.9 L, O2 Concentration % 40%, Temperature 99.3, Respiration Rate 16, O2 Delivery Method VENT, Vent Mode CMV, Expiratory Pressure 5, Tidal Volume 450, Phlebotomy Draw Site RIGHT RADIAL 02/01/18 1504: Lactic Acid 2.0 02/01/18 1130: Troponin I Cancelled Recent Imaging Studies: Right-sided central venous catheter tip projects at the caval atrial junction in good position. Persistent bibasilar atelectasis versus consolidation, left greater than right. Likely small bilateral pleural effusions. Assessment/Plan Assessment/Plan Assessment: 1. Pancreatitis 2. Alcohol withdrawal 3. Sinus tachycardia 4. 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 Possibly secondary to tachycardia. 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 Takotsubo cardiomyopathy is in the differential diagnosis. Plan: * Antibiotics as per the medical service * Cardiac medications are on hold for hypotension. * Given severely decreased ejection fraction, possibly secondary to tachycardia the patient would benefit from beta-bryan therapy once hemodynamically stable. If blood pressure continues to be normal, would consider starting low-dose metoprolol at an initial dose of 12.5 mg twice daily via NG tube. Critical care time: 38 minutes Continue telemetry? Yes
--- NOTE | 2018-02-03 16:02 | RADIOLOGY REPORT ---
EXAMINATION: CHEST 1 VIEW CLINICAL INFORMATION: Intubated. ARDS. Fluid overload. COMPARISON: Multiple prior exams are reviewed. The most recent is from 02/02/2018. TECHNIQUE: An AP view of the chest is provided. FINDINGS: The cardiac silhouette is stable. The tip of the endotracheal tube is approximately 5 cm above the megan. The enteric tube and right central venous line are in unchanged position. There are moderate bilateral pleural effusions. There is moderate vascular congestion. There is bibasilar airspace disease, more prominent within the left midlung. The osseous structures are stable. IMPRESSION: Lines and tubes in place as stated above. Increase in moderate bilateral pleural effusions. Moderate vascular congestion with patchy multifocal airspace disease.
[2018-02-04] VITALS (8 sets, daily range): BP systolic 95–116; BP diastolic 60–75
[2018-02-04 03:36] LABS: ABSOLUTE BASOPHIL COUNT 0.1 /CUMM (0.0-0.2); ABSOLUTE EOSINOPHIL COUNT 0.3 /CUMM (0.0-0.7); ABSOLUTE GRANULOCYTE CT 5.3 /CUMM (1.4-6.5); ABSOLUTE LYMPH COUNT 1.2 /CUMM (1.2-3.4); ABSOLUTE MONOCYTE COUNT 1.1 /CUMM (0.10-0.60); BASOPHIL % 0.7 % (0.0-2.0); EOSINOPHIL % 3.9 % (0-5); GRANULOCYTE % 66.1 % (42.2-75.2); HEMATOCRIT 30.3 % (37-47); MEAN CORPUSCULAR VOLUME 102.8 FL (81.0-99.0); MEAN PLATELET VOLUME 7.9 FL (7.4-10.4); PLATELET COUNT 180 /CUMM (130-400); RBC DISTRIBUTION WIDTH 16.2 % (11.5-14.5); RED BLOOD CELL CT 2.94 /CUMM (4.20-5.40)
--- NOTE | 2018-02-04 06:15 | RADIOLOGY REPORT ---
EXAMINATION: XR PORTABLE CHEST CLINICAL INFORMATION: Intubation. COMPARISON: Chest x-ray February 03, 2018 TECHNIQUE: Portable frontal view of the chest was obtained. 5:40 AM FINDINGS: Endotracheal tube approximate 4 cm above the megan. Nasogastric tube in the stomach. Right IJ catheter the cavoatrial junction. Lung volume is low with central hilar pulmonary vascular congestion. There is haziness of both lung bases due to bilateral pleural effusions. IMPRESSION: 1. Endotracheal tube catheter 4 cm above megan. 2. Nasogastric tube in stomach. 3. Right IJ catheter at cavoatrial junction. 4. Low lung volume with pulmonary vascular congestion and bilateral pleural effusions.
--- NOTE | 2018-02-04 07:49 | PN- Resident CRCU ---
Suma ROLLINS,Thais 02/04/18 0740: Subjective HPI/CRCU Issues: 1. Acute pancreatitis 2. Acute hypoxic respiratory failure -extubated today 3. Bilateral pleural effusions with possible aspiratory pneumonia on IV unasyn 4. Transaminitis - resolved 5. Alcohol withdrawl on ativan drip 6. Acute systolic heart failure - Tachycardia induced/stress induced/alcohol related 7. Electrolytemia 24 Hour Events: Patient remained stable over the past 24hrs with HR around 90-100, BP 110/ 70mmHg. Subjective Awake, alert responding to commands appropriately. Remains on NS @ 50ml/hr, IV ativan double concentration drip gradually tapered based on CIWA scores. Vent settings prior to extubation - 450//. Tolerated weaning trial and extubated successfully. Stopped IV fluids as 2L positive Objective Vital Signs & I&O Last 8 Hrs of Vitals and I&O: Intake & Output 02/04 0800 Intake Total 1255 Output Total 1350 Balance -95 Intake, IV 1255 Intake, Oral 0 Number 0 Bowel Movements Output, 250 Gastric Drainage Output, Urine 1100 Patient 84.935 kg Weight Weight Bed scale Measurement Method Exam General Appearance: well developed/nourished, alert, awake, mild distress Head: atraumatic, normal appearance Neck: normal inspection, supple Respiratory: normal breath sounds, no respiratory distress Cardiovascular: regular rate/rhythm, edema, tachycardia Gastrointestinal: normal bowel sounds, soft, non-tender Extremities: normal inspection, normal capillary refill, normal range of motion Cranial Nerves: normal hearing, symmetry of face with no focal weakness, able to move all four extremities Skin: intact Skin Temp/Moisture Exam: Warm/Dry Central Line Site: Right IJ catheter Date In: 02/02/18 IV Drips IV Drips: Lorazepam Nutrition Nutrition: NPO Current Medications: Current Medications Sig/Lucy Start time Last Medication Dose Route Stop Time Status Admin Ampicillin Sodium/ 3,000 MG Q6H 02/02 2000 AC 02/04 Sulbactam Sodium IV 1340 Sodium Chloride 100 ML Benzocaine/Menthol 1 RAZIA Q2P PRN 02/04 1300 AC PO Cyanocobalamin 1,000 MCG DAILY 02/01 0900 AC 02/04 PO 0821 Diphenhydramine HCl 1 MARIELY BID 02/01 0945 AC 02/04 TOP 0821 Enoxaparin Sodium 40 MG DAILY 01/31 1044 AC 02/04 SC 0821 Folic Acid 1 MG DAILY 02/01 0900 AC 02/04 PO 0821 Furosemide 20 MG ONCE ONE 02/04 0930 DC 02/04 IV 02/04 0931 0956 Hydromorphone HCl 0.4 MG Q6P PRN 01/31 0930 AC 02/04 IV 1100 Lisinopril 10 MG QAM 01/31 1041 AC 02/04 PO 0821 Lorazepam 100 MG Q11H 02/04 1100 AC 02/04 Dextrose/Water 500 ML IV 1104 Lorazepam 100 MG Q8H 02/04 0200 DC 02/04 Dextrose/Water 500 ML IV 0222 Lorazepam 100 MG Q9H 02/03 1400 DC 02/04 Dextrose/Water 1,000 ML IV 02/04 0159 0000 Magnesium Sulfate 1 GM ONCE ONE 02/04 0900 DC 02/04 Dextrose/Water 100 ML IV 02/04 1259 0852 Metoprolol Tartrate 12.5 MG BID 02/03 1400 AC 02/04 PO 0821 Multivitamins 15 ML DAILY 02/04 0900 AC 02/04 PO 0821 Pantoprazole Sodium 40 MG DAILY 01/31 1042 AC 02/04 IV 0820 Potassium Chloride 20 MEQ ONCE ONE 02/04 0900 DC 02/04 IV 02/04 0901 0853 Sodium Chloride 1,000 ML Q20H 02/03 1645 DC IV Thiamine HCl 100 MG DAILY 02/01 0900 AC 02/04 PO 0821 Trimethobenzamide HCl 200 MG 4 TIMES/DAY PRN 01/31 1615 AC 02/02 IM 0835 CXR Findings: 1. Endotracheal tube catheter 4 cm above megan. 2. Nasogastric tube in stomach. 3. Right IJ catheter at cavoatrial junction. 4. Low lung volume with pulmonary vascular congestion and bilateral pleural effusions. Impression/Plan Impression/Problem List Impression: 47-year-old lady chronic EtOH use present with acute onset of abdominal pain and is found to have acute pancreatitis based on elevated lipase level and CT findings of inflammatory areas around the pancreas. She transferred to ICU for the ativan drip due to elevated CIWA score was above 70, developed acute hypoxic respiratory failure fracture to nonrebreather mask and requiring intubation. Patient had received 7 L lactated Ringer prior hypoxic event, in addition to intubation patient was given IV 20 mg of Lasix and labetalol. PLAN Respiratory Acute hypoxic respiratory failure requiring intubation - resolved Extubated currently. Currently saturating well on RA. Infectious She is afebrile however with worsening leukocytosis. This could be secondary to inflammatory process vs etoh. However, the airspace disease finding on chest x- ray and in the setting of acute hypoxic respiratory failure, it is reasonable to suggest that patient could have had a pneumonia most likely aspiration pneumonia given that his frequent EtOH user. * continue Unasyn 3gm q 6h for atleast 5 days. * Monitor for fever in the setting of pancreatitis. Cardiology Acute systolic heart failure Patient had EF 25-30% with severe posterior wall hypokinesis, mild LVH. Probably secondary to tachycarida, EtOH or stress induced. She might benefit catheterization to rule out coronary disease and closer follow up iwth repeat ECHO. * As patient is 2L positive - a single dose of lasix 20mg IV given - responded well. * Low dose lisinopril as blood pressure tolerates. * Patient is tachycardic more consistent with compensation for low EF, although there is a component of withdrawl from alcohol (OF NOTE - patient is tachycardic at baseline per family) * Repeated limited ECHO for follow up of EF. Demand ischemia Patient noted to have mild elevation of troponin, is most likely secondary to supply demand mismatch in the setting of active withdrawal. No chest pain, EKG changes. * Trended down * Might benefit outpatient cath Persistent hypotension Resolved Hematology stable Metabolic Electrolyte deraingements of hypomagnesemia and Hypokalemia consistent with Etoh detox and acute pancreatits, will aggresively replenish mag, phos and K. We will also repeat a Lipase and RUQ scan. Alimentary Acute severe interstitial pancreatitis with organ failure Appears secondary to alcohol consumption. US liver ruled out gall stones, did show fatty infiltration. Lipase 7000 --> 1000. No acute changes so far. BISAP score 2 (for pelural effusion/SIRS). Abdomen is soft on exam. SIRS > 48hrs - severe. Presence of PaO2/FiO2 score of 2.4 suggest organ failure. * NPO for bowel rest * OG tube in place. * Will proceed with Swallow eval and start on clear liquids tomorrow. Transaminitis AST/ALT in 200s at admission - resolved Neuro AAO X 3. Alcohol withdrawl Ativan drip - tapered down as tolerated. DVT prophylaxis SC lovenox Code status Full code Problem List: 1. Abdominal pain 2. Macrocytic anemia 3. Pancreatitis, acute 4. Acute respiratory failure with hypoxia 5. Systolic heart failure Pain Ratin Pain Location: abdomen Tomorrow's Labs & Rationales: cbc and ICU bundle. Plan DVT/Prophylaxis: pharmacological Doron Holt MD 02/04/18 1614: Attending MD Review Statement Attending Sign Off Attending Cosign Statement: I have: examined this patient, reviewed avalbl EMR data, personally reviewd images, discussd w/resident/PA/GUM REMOVER, discussed mgmt plan w/silvestre, discussed mgmt plan w/CM, discussed mgmt plan w/pt, agreed w/resident/PA/GUM REMOVER, amended to note. Other Findings: IDoron M.D. have examined this patient, reviewed available EMR data, personally reviewed images, discussed with resident/PA/GUM REMOVER, discussed management plan with housestaff and nursing staff, discussed managment plan all of healthcare providers, discussed management plan with patient and/or family, agreed with resident/PA/GUM REMOVER. The past history and parts of the chart have been autopopulated. Impression 47 year old woman * acute hypoxemic respiratory failure secondary to fluid administration and atelectasis, underlying likely aspiration pneumonia - IMPROVING * acute pancreatitis - resolving * acute etoh withdrawal/dependence - on ativan gtt * elevated troponins/cardiomyopathy - EF 20% - unclear etiology, ?tachycardia induced/etoh related, also ?takotsubo's cardiomyopathy Plan Respiratory -extubated ID -defervesced, continue unasyn for likely aspiration pna CVS -f/u cardiology -tachycardia slightly imrpoved -? need for cath, further workup for cardiomyopathy per cardiology -limited ECHO repeat Heme -f/u coags, cbcs Metabolic -replete lytes - replete k, phos, mag as needed -transaminitis resolved Alimentary -swallowing evaluation Neuro -ativan drip reduce as tolerated -fentanyl if needed DVT prophylaxis at all times TTS 35 min
--- NOTE | 2018-02-04 17:39 | PN- Cardiology ---
Subjective Subjective: * Patient was just extubated and cannot talk very well. No apparent chest discomfort, lightheadedness or shortness of breath. * sinus rhythm * A preliminary look at her repeat echocardiogram shows a much improved EF. Objective Vital Signs and I&Os Vital Signs Date Time Temp Pulse Resp B/P B/P Pulse O2 O2 Flow FiO2 Mean Ox Delivery Rate 02/04 1600 97 Nasal 3.0L Cannula 02/04 1600 98.5 106 22 103/64 97 Nasal 3.0L Cannula 02/04 1200 96 Venti Mask 35% 02/04 0800 97 Ventilator 30% 02/04 0800 97.6 91 18 104/68 97 Ventilator 30% 02/04 0752 30 02/04 0600 98.9 98 16 97/61 02/04 0525 30 02/04 0400 98.9 96 16 116/75 02/04 0400 98 Ventilator 30% 02/04 0259 30 02/04 0200 98.9 96 16 97/64 02/04 0030 30 02/04 0000 99.1 96 16 99/61 02/04 0000 99.1 96 16 100/60 96 Ventilator 30% 02/04 0000 96 Ventilator 30% 02/03 2201 30 02/03 2200 100.4 110 17 114/67 02/03 2020 109 110/67 02/04 2000 99.5 108 20 104/74 02/04 2000 97 Ventilator 30% 02/03 1935 30 02/03 1800 110 17 112/71 Intake & Output 02/04 1600 02/04 0800 02/04 0000 02/03 1600 02/03 0800 02/03 0000 Intake Total 645 1255 1790 2060 1931 2293 Output Total 2550 1350 1200 579 983 5094 Balance -1905 -95 590 1210 1501 1143 Intake, IV 545 1255 1525 2060 1931 2293 Intake, Oral 0 0 0 0 0 Intake, Other 100 265 Number 0 0 0 0 Bowel Movements Output, 300 250 200 300 125 350 Gastric Drainage Output, Urine 2250 1100 1000 550 305 800 Patient 187 lb 192 lb Weight Weight Bed scale Bed scale Measurement Method Physical Exam: General: WD/overweight female HEENT: NC/AT, PERRl, EOMI Neck: no JVD, no carotid bruit Heart: RRR Lungs: clear bilaterally anteriorly Abdomen: soft, obese, NT, +ve bowel sounds Extremities: no edema Assessment/Plan Assessment/Plan * This patient was admitted for alcohol withdrawal and symptoms of pancreatitis. She was discovered to be tachycardic with positive cardiac enzymes and an echocardiogram disclosed a poor EF. Her heart rate has improved and she is tolerating a small dose of Metoprolol. * This patient was tachycardic upon initial presentation. As such, she may have a tachycardia induced cardiomyopathy or an alcohol induced cardiomyopathy. I am less inclined to think that she had an acute coronary event due to the multiple regions of hypokinesis, borderline elevation of cardiac enzymes, absence of ischemic ECG changes and chest pain. It should be noted that last year she was seen by Dr. Becerril and reportedly did not have any abnormalities so the current issues are new since that time. Continue telemetry? Yes
[2018-02-05] VITALS (11 sets, daily range): BP systolic 104–126; BP diastolic 60–77
[2018-02-05 05:10] LABS: ABSOLUTE BASOPHIL COUNT 0 /CUMM (0.0-0.2); ABSOLUTE EOSINOPHIL COUNT 0.3 /CUMM (0.0-0.7); ABSOLUTE GRANULOCYTE CT 4.6 /CUMM (1.4-6.5); ABSOLUTE LYMPH COUNT 0.8 /CUMM (1.2-3.4); ABSOLUTE MONOCYTE COUNT 0.9 /CUMM (0.10-0.60); BASOPHIL % 0.4 % (0.0-2.0); EOSINOPHIL % 4.5 % (0-5); GRANULOCYTE % 69.7 % (42.2-75.2); HEMATOCRIT 30.2 % (37-47); MEAN CORPUSCULAR HGB 34.3 PG (27.0-31.0); MEAN CORPUSCULAR HGB CONC 33.3 G/DL (33.0-37.0); MEAN CORPUSCULAR VOLUME 102.8 FL (81.0-99.0); MEAN PLATELET VOLUME 8.7 FL (7.4-10.4); PLATELET COUNT 243 /CUMM (130-400); RED BLOOD CELL CT 2.94 /CUMM (4.20-5.40); WHITE BLOOD CELL COUNT 6.6 /CUMM (4.8-10.8)
--- NOTE | 2018-02-05 05:53 | PN- Resident CRCU ---
Suma ROLLINS,Thais 02/05/18 0553: Subjective HPI/CRCU Issues: 1. Acute pancreatitis 2. Acute hypoxic respiratory failure - resolved 3. Possible aspiratory pneumonia on IV unasyn 4. Alcohol withdrawl on ativan drip 5. Acute systolic heart failure - Tachycardia induced/stress induced/alcohol related 6. Electrolytemia 24 Hour Events: Patient remained stable over the past 24hrs. Vitals stable, saturating well on 1L NC. Currently on ativan drip 3mg/hr, taperred off during the day. Failed bedside swallow eval, still NPO with D5NS @ 50ml/hr running. Labs are notable for low K, low Mg. repleted. Objective Vital Signs & I&O Last 8 Hrs of Vitals and I&O: Vital Signs Date Time Temp Pulse Resp B/P B/P Pulse O2 O2 Flow FiO2 Mean Ox Delivery Rate 02/05 0400 98.1 91 16 108/62 02/05 0400 99 Nasal 3.0L Cannula 02/05 0000 97.6 100 26 112/62 02/05 0000 98 Nasal 3.0L Cannula 02/05 0000 97.6 100 26 112/62 98 Nasal 3.0L Cannula 02/04 2200 99.0 106 16 95/71 02/04 2000 99.9 110 23 108/64 02/04 2000 95 Nasal 3.0L Cannula 02/04 1600 97 Nasal 3.0L Cannula 02/04 1600 98.5 106 22 103/64 97 Nasal 3.0L Cannula 02/04 1200 96 Venti Mask 35% 02/04 0800 97 Ventilator 30% 02/04 0800 97.6 91 18 104/68 97 Ventilator 30% 02/04 0752 30 Intake & Output 02/05 0800 02/05 0000 02/04 1600 Intake Total 385 645 Output Total 800 2550 Balance -415 -1905 Intake, IV 385 545 Intake, Oral 0 0 Intake, Other 100 Number 0 Bowel Movements Output, 300 Gastric Drainage Output, Urine 800 2250 Exam General Appearance: no apparent distress, alert, awake, comfortable Head: atraumatic, normal appearance Ears, Nose, Throat: normal pharynx Neck: normal inspection, supple Respiratory: chest non-tender, no respiratory distress, decreased breath sounds Cardiovascular: regular rate/rhythm, edema Gastrointestinal: normal bowel sounds, soft, non-tender Extremities: normal inspection, normal capillary refill, normal range of motion Cranial Nerves: normal hearing, normal speech, PERRL Skin: intact, warm/dry Skin Temp/Moisture Exam: Warm/Dry Weaning Parameters NIF: 38 Minute Volume: 6.4 Resp rate: 20 Vt: 446 Heart Rate: 97 Weaning Schedule Start Time: 0920 Minute Volume: 7.5 Resp Rate: 17 Vt: 308 Heart Rate: 97 End Time: 1135 Minute Volume: 7.8 Resp Rate: 16 Vt: 400 Heart Rate: 90 IV Drips IV Drips: D5NS Ativan Nutrition Nutrition: NPO Current Medications: Current Medications Sig/Lucy Start time Last Medication Dose Route Stop Time Status Admin Ampicillin Sodium/ 3,000 MG Q6H 02/01 2000 AC 02/05 Sulbactam Sodium IV 1409 Sodium Chloride 100 ML Benzocaine/Menthol 1 RAZIA Q2P PRN 02/04 1300 AC PO Cyanocobalamin 1,000 MCG DAILY 02/01 0900 AC 02/04 PO 0821 Dextrose/Sodium 1,000 ML Q20H 02/04 1930 AC 02/04 Chloride IV 1952 Diphenhydramine HCl 1 MARIELY BID 02/01 0945 02/05 TOP 0854 Enoxaparin Sodium 40 MG DAILY 01/31 1044 AC 02/05 SC 0904 Folic Acid 1 MG DAILY 02/01 0900 AC 02/04 PO 08 Hydromorphone HCl 0.4 MG Q6P PRN 01/31 0930 AC 02/05 IV 1656 Lisinopril 10 MG QAM 01/31 1041 AC 02/04 PO 0821 Lorazepam 2 MG Q6 02/05 1302 AC 02/05 IV 1416 Lorazepam 0 Q1P PRN 02/05 1245 IV Lorazepam 0 Q1P PRN 02/05 0930 DC IV Lorazepam 100 MG Q11H 02/04 1100 DC 02/05 Dextrose/Water 500 ML IV 0920 Magnesium Sulfate 1 GM ONCE ONE 02/05 0600 DC 02/05 Dextrose/Water 100 ML IV 02/05 0959 0932 Metoprolol Tartrate 12.5 MG BID 02/03 1400 AC 02/04 PO 0821 Multivitamins 15 ML DAILY 02/04 0900 AC 02/04 PO 0821 Pantoprazole Sodium 40 MG DAILY 01/31 1042 AC 02/05 IV 0858 Potassium Chloride 20 MEQ Q1H 02/05 0600 DC 02/05 IV 02/05 0701 0729 Thiamine HCl 100 MG ONCE ONE 02/05 1315 DC 02/05 Sodium Chloride 50 ML IV 02/05 1414 1416 Thiamine HCl 100 MG DAILY 02/01 0900 AC 02/04 PO 0821 Trimethobenzamide HCl 200 MG 4 TIMES/DAY PRN 01/31 1615 AC 02/02 IM 0835 Antibiotics Antibiotic: unasyn Day #: 3 Impression/Plan Impression/Problem List Impression: 47-year-old lady chronic EtOH use present with acute onset of abdominal pain and is found to have acute pancreatitis based on elevated lipase level and CT findings of inflammatory areas around the pancreas. She transferred to ICU for the ativan drip due to elevated CIWA score was above 70, developed acute hypoxic respiratory failure fracture to nonrebreather mask and requiring intubation. Patient had received 7 L lactated Ringer prior hypoxic event, in addition to intubation patient was given IV 20 mg of Lasix and labetalol. PLAN Respiratory Acute hypoxic respiratory failure requiring intubation - resolved Extubated currently. Currently saturating well on RA. Infectious She is afebrile however with worsening leukocytosis. This could be secondary to inflammatory process vs etoh. However, the airspace disease finding on chest x- ray and in the setting of acute hypoxic respiratory failure, it is reasonable to suggest that patient could have had a pneumonia most likely aspiration pneumonia given that his frequent EtOH user. * continue Unasyn 3gm q 6h for atleast 5 days. Cardiology Acute systolic heart failure - possibly tachycardia/stress induced Patient had EF 25-30% with severe posterior wall hypokinesis, mild LVH. Probably secondary to tachycarida or stress induced. She might benefit catheterization to rule out coronary disease and closer follow up [facility] repeat ECHO. * Responded very well for one dose of furosemide yesterday. * Low dose lisinopril as blood pressure tolerates. * EF improved to 60% on repeated ECHO * Cardio on board Demand ischemia Patient noted to have mild elevation of troponin, is most likely secondary to supply demand mismatch in the setting of active withdrawal. No chest pain, EKG changes. * Trended down * Might benefit outpatient cath Hematology stable Metabolic Electrolyte deraingements of hypomagnesemia and Hypokalemia consistent with Etoh detox and acute pancreatits, will aggresively replenish mag, phos and K. Alimentary Acute pancreatitis Appears secondary to alcohol consumption. US liver ruled out gall stones, did show fatty infiltration. Lipase 7000 --> 1000. No acute changes so far. BISAP score 2 (for pelural effusion/SIRS). Abdomen is soft on exam. SIRS > 48hrs - severe. Presence of PaO2/FiO2 score of 2.4 suggest organ failure. * Failed swallow eval - still NPO * D5NS for now Transaminitis AST/ALT in 200s at admission - resolved Neuro AAO X 3. Alcohol withdrawl Discontinued ativan drip and started on scheduled and PRN ativan. consulted social services analyst for substance abuse. DVT prophylaxis SC lovenox Code status Full code Problem List: 1. Pancreatitis, acute 2. Macrocytic anemia 3. Systolic heart failure Pain Ratin Tomorrow's Labs & Rationales: CBC to monitor H&H BEP for electrolytes, Mag Plan DVT/Prophylaxis: pharmacological Doron Holt MD 02/05/18 1208: Attending MD Review Statement Attending Sign Off Attending Cosign Statement: I have: examined this patient, reviewed al EMR data, personally reviewd images, discussd w/resident/PA/HELIARC WELDER, discussed mgmt plan w/silvestre, discussed mgmt plan w/CM, discussed mgmt plan w/pt, agreed w/resident/PA/HELIARC WELDER, amended to note. Other Findings: I, Doron Holt M.D. have examined this patient, reviewed available EMR data, personally reviewed images, discussed with resident/PA/HELIARC WELDER, discussed management plan with housestaff and nursing staff, discussed managment plan all of healthcare providers, discussed management plan with patient and/or family, agreed with resident/PA/HELIARC WELDER. The past history and parts of the chart have been autopopulated. Impression 47 year old woman * resolved acute hypoxemic respiratory failure secondary to fluid administration and atelectasis, underlying likely aspiration pneumonia - IMPROVING * resolving acute pancreatitis secondary to etoh * acute etoh withdrawal/dependence - on ativan gtt * elevated troponins/cardiomyopathy - EF 20% - unclear etiology, ?tachycardia induced/etoh related, also ?takotsubo's cardiomyopathy Plan Respiratory -extubated ID -defervesced, continue unasyn for likely aspiration pna, complete course CVS -f/u cardiology -tachycardia slightly imrpoved -? need for cath, further workup for cardiomyopathy per cardiology -f/u limited ECHO Heme -f/u coags, cbcs Metabolic -replete lytes - replete k, phos, mag as needed -transaminitis resolved Alimentary -swallowing evaluation Neuro -ativan drip reduce as tolerated, ativan po add per ciwa as well -fentanyl if needed DVT prophylaxis at all times TTS 35 min DG to telemetry only once off ativan drip
--- NOTE | 2018-02-05 16:20 | ECHOCARDIOGRAM REPORT ---
ZOE BEAUCHAMP Age: 47 : 1970 Gender: F Exam Date: 02/04/2018 16:29 Exam Location: [facility] Ht (in): 67 Wt (lb): 187 BSA: 2.03 BP: 104 / 68 Ordering Physician: Thais Moise MD Referring Physician: Pranav Gonzalez MD, PhD Technologist: Helen [facility] Room Number: 103 Indications: HEART FAILURE Rhythm: Sinus Technical Quality: good/limited study FINDINGS Left Ventricle Normal left ventricular size, wall thickness and systolic function with no obvious regional wall motion abnormalities. Normal left ventricular diastolic filling pattern for age. The ejection fraction is visually estimated at 60%. Right Ventricle The right ventricle is normal in size and function. Right Atrium The right atrium is normal in size. Left Atrium The left atrium is normal in size. The interatrial septum is intact. Mitral Valve The mitral valve is normal in structure and function. There is trace mitral regurgitation. Aortic Valve Structurally normal aortic valve without significant sclerosis or stenosis. There is no aortic regurgitation. Tricuspid Valve The tricuspid valve is normal in structure and function. There is no tricuspid regurgitation. Pulmonic Valve Structurally normal pulmonic valve. There is no pulmonic regurgitation. Pericardium Normal pericardium without effusion. Left pleural effusion. Great Vessels Normal aortic root dimension. The aortic arch and great vessels are well seen and are normal. CONCLUSIONS 1. Normal EF of 60%. 2. Trace MR. 3. Left pleural effusion. Pranav Gonzalez M.D. (Electronically Signed) Final Date: 05 Feb 2018 16:20 MEASUREMENTS (Male / Female) Normal Values 2D ECHO LV Diastolic Diameter PLAX 4.0 cm 4.2 - 5.9 / 3.9 - 5.3 cm LV Systolic Diameter PLAX 2.7 cm 2.1 - 4.0 cm LV Fractional Shortening PLAX 32.5 % 25 - 46 % LV Ejection Fraction 2D Teich 61.4 % IVS Diastolic Thickness 1.3 cm LVPW Diastolic Thickness 1.1 cm LV Relative Wall Thickness 0.6 DOPPLER Mitral E Point Velocity 91.3 cm/s Mitral A Point Velocity 84.9 cm/s Mitral E to A Ratio 1.1 MV Deceleration Time 256.0 ms TR Peak Velocity 202.0 cm/s TR Peak Gradient 16.3 mmHg Right Atrial Pressure 5.0 mmHg Pulmonary Artery Systolic Pressu 21.3 mmHg Right Ventricular Systolic Press 21.3 mmHg
--- NOTE | 2018-02-05 18:41 | Transfer of Care Summary ---
Hospital Course Course Hospital Course: Reason for ICU transfer: Persistently high CIWA scores HPI This is a 47-year-old lady with a past medical history of hypertension and daily alcohol use presented with one-day history of abdominal pain in the setting of elevated lipase (7174) and CT finding suggestive of pancreatitis. Initially patient was admitted to general medicine floor for acute pancreatitis and etoh detox, however later in the evening, her ciwa remained elevated with significant tachycardia, decision was made to transfer to ICU for insulin drip. While at the ICU she desatted on nonrebreather mask to o2 levels of 70%, and was eventually intubated. Prior to transfer to ICU patient had received about 7 L of lactated Ringer, a chest x-ray was obtained and patient was administered IV Lasix. Interval events in ICU Acute hypoxic respiratory failure Patient initial chest x-ray on 01/31/18 was suggestive of pulmonary edema, after receiving 7 L of LR that she received as part of treatment protocol for pancreatitis. She also found to have acute decrease in EF in the setting of acute illness (unknown previous EF) and known to be tachycardic at baseline which could have contributed for decompensation. She was intubated due to acute decompensation of her respiratory status. CTAngio ruled out PE in the setting of persistent tachycardia. Stabilized and extubated on , remained stable on RA. Alcohol withdrawl She was placed on ativan drip. Once stabilized gradually taperred off on 02/05/18. Currently on scheduled and PRN ativan. Not started on any librium given elevated trasaminases. Needs follow up with social media marketing specialist. Acute pancreatitis Appears secondary to alcohol consumption. US liver ruled out gall stones, did show fatty infiltration. Lipase trended down 7000 --> 1000. BISAP score 2 (for pelural effusion/SIRS) at admission. Abdomen is soft on exam. SIRS > 48hrs - severe. Presence of PaO2/FiO2 score of 2.4 suggest organ failure. She was placed on OG tube for decompression which was never used for feeding. After extubation she failed swallow eval on 02/05/18. She passed barium swallow on 02/06 placed on mechanical soft and thin diet. Acute systolic dysfunction in the setting of tachycadia/etoh/stress Patient had EF 25-30% with severe posterior wall hypokinesis, mild LVH. Probably secondary to tachycarida or stress induced. She was started on metoprolol 12.5mg BID due to persistent tachycardia, lisinopril to decrease after load. Repeat ECHO on 02/04/18 did show improvement in EF to 60% without wall motion abnormalities. Cardiology on board and recommended a stress test prior to discharge. Elevated Troponin Patient noted to have mild elevation of troponin 0.63-->0.80--> 0.50. It is most likely secondary to supply demand mismatch in the setting of active withdrawal. No chest pain, EKG changes.Trended down. Aspiration pneumonia CXR suggestive of airspace disease that could suggest pneumonia especially in the context of dy heaving and vomiting prior to admission - possilbe aspiratory pna. She got treated with IV unasyn for a total of 5 days ideally. Transaminitis AST/ALT - 249/210 at admission. Back to normal level. Critical illness myopathy Patient had significant weakness after extubation. She was unable to talk for the first day, unable to move extremities to the fullest extent. Etiology is unclear, could be - neuromuscular agents given during central line insertion. She received Etomidate 15mg during first attempt followed by vecuronium 8.4mg during 2nd attempt. she was very agitated during placement requiring high dose along with ativan drip. She tried hard to pull the ET tube out multiple times due to irritation. She is recovering slowly. Working with physcial therpay/occupational therapy. NIPPV None Antibiotics Unasyn for aspiratio pna Catheters/IV access Intubated and ventilated -- 02/01/18 to 02/04/18 Right TLC due to persistent hypotension Things to follow up Stress test prior to discharge Social work consult for substance abuse follow up Physical therapy Occupational therapy DVT prophylaxis [facility] Cardiology Code status Full Code Family updated - Complications: NONE Significant Procedures: CXR on 01/31/18 IMPRESSION: Low lung volumes with basilar atelectasis. No demonstrable effusion. Abdomen/Plevis CT IMPRESSION: Edematous pancreas with moderate to large amount of adjacent free fluid. The appearance is suspicious for pancreatitis. There are no demonstrable pancreatic nor biliary calculi. Hepatic steatosis. Moderate amount of pelvic free fluid. Bibasilar atelectasis. CXR at admission 02/01/18 IMPRESSION: Endotracheal tube and enteric tube in place. Persistent multifocal airspace disease. Slight interval improvement in the degree of vascular congestion. Small bilateral pleural effusions. CXR 01/31/18 IMPRESSION: Congestive heart failure with pulmonary edema. CXR on 02/01/18 IMPRESSION: 1. Stable support apparatus. 2. Persistent multifocal airspace disease, potentially mildly worsened within the right hemithorax. ECHO on 02/01/18 CONCLUSIONS 1. Severely decreased EF of 20% with regional wall motion abnormalities as described above. 2. Mild left ventricular enlargement. 3. Mild mitral regurgitation. 4. Large pleural effusion. Pranav Gonzalez M.D. (Electronically Signed) Final Date: 01 Feb 2018 16:11 MEASUREMENTS (Male / Female) Normal Values 2D ECHO LV Diastolic Diameter PLAX 5.4 cm 4.2 - 5.9 / 3.9 - 5.3 cm LV Systolic Diameter PLAX 4.7 cm 2.1 - 4.0 cm LV Fractional Shortening PLAX 13.0 % 25 - 46 % LV Ejection Fraction 2D Teich 27.6 % IVS Diastolic Thickness 0.9 cm LVPW Diastolic Thickness 1.0 cm LV Relative Wall Thickness 0.4 LVOT Diameter 2.1 cm Aortic Root Diameter 2.6 cm LA Systolic Diameter LX 3.3 cm 3.0 - 4.0 / 2.7 - 3.8 cm LV Ejection Fraction MOD BP 39.2 % >= 55 % LV Cardiac Index MOD BP 3002.2 cm/minm LV Diastolic Length 4C 7.3 cm 6.9 - 10.3 cm LV Diastolic Area 4C 30.5 cm LV Diastolic Volume MOD 4C 107.0 cm LV Ejection Fraction MOD 4C 43.0 % LV Stroke Volume MOD 4C 46.0 cm LV Cardiac Index MOD 4C 3452.5 cm/minm LV Systolic Length 4C 5.8 cm LV Systolic Area 4C 20.3 cm LV Systolic Volume MOD 4C 61.0 cm LV Ejection Fraction MOD 2C 41.1 % LV Cardiac Index MOD 2C 2927.1 cm/minm LV Diastolic Volume 4C AL 108.5 cm 85 - 139 / 69 - 109 cm LV Systolic Volume 4C AL 60.0 cm LV Ejection Fraction 4C AL 44.7 % LV Stroke Volume 4C AL 48.5 cm LV Cardiac Index 4C AL 3639.1 cm/minm LV Ejection Fraction 2C AL 42.8 % LV Cardiac Index 2C AL 3075.5 cm/minm DOPPLER AV Peak Velocity 125.0 cm/s AV Peak Gradient 6.3 mmHg LVOT Peak Velocity 80.0 cm/s LVOT Peak Gradient 2.6 mmHg AV Area Cont Eq pk 2.2 cm Mitral E Point Velocity 70.6 cm/s Mitral A Point Velocity 130.0 cm/s Mitral E to A Ratio 0.5 PV Peak Velocity 113.0 cm/s PV Peak Gradient 5.1 mmHg LV E' Lateral Velocity 3.3 cm/s Mitral E to LV E' Lateral Ratio 21.3 LV E' Septal Velocity 4.2 cm/s Mitral E to LV E' Septal Ratio 16.8 DICTATED BY: Lisa ROLLINS PHD,Pranav Roberts DATE/TIME DICTATED:02/01/181610 [employer]AN[employer] MANAGER:BITA DATE/TIME TRANSCRIBED:02/01/181610 CONFIDENTIAL, DO NOT COPY WITHOUT APPROPRIATE AUTHORIZATION. CTA on 02/01/18 IMPRESSION: No evidence of acute pulmonary embolism. There are bilateral pleural effusions and dependent atelectasis. The possibility of superimposed consolidative disease within both lungs cannot be definitively excluded on the basis of this examination. Ascites is partially visualized within the abdominal cavity and there are retroperitoneal inflammatory changes that coincide with the clinical history of pancreatitis. VTE: negative Abdominal ultrasound on 02/01/18 IMPRESSION: 1. Pancreas not well visualized. This could be further assessed with CT. 2. Hepatomegaly with diffuse fatty change of liver. Small volume of fluid at the inferior hepatic margin. No acute abnormality of gallbladder, no bile duct dilatation. Follow up ECHO on 02/05/18 CONCLUSIONS 1. Normal EF of 60%. 2. Trace MR. 3. Left pleural effusion. MEASUREMENTS (Male / Female) Normal Values 2D ECHO LV Diastolic Diameter PLAX 4.0 cm 4.2 - 5.9 / 3.9 - 5.3 cm LV Systolic Diameter PLAX 2.7 cm 2.1 - 4.0 cm LV Fractional Shortening PLAX 32.5 % 25 - 46 % LV Ejection Fraction 2D Teich 61.4 % IVS Diastolic Thickness 1.3 cm LVPW Diastolic Thickness 1.1 cm LV Relative Wall Thickness 0.6 DOPPLER Mitral E Point Velocity 91.3 cm/s Mitral A Point Velocity 84.9 cm/s Mitral E to A Ratio 1.1 MV Deceleration Time 256.0 ms TR Peak Velocity 202.0 cm/s TR Peak Gradient 16.3 mmHg Right Atrial Pressure 5.0 mmHg Pulmonary Artery Systolic Pressu 21.3 mmHg Right Ventricular Systolic Press 21.3 mmHg CXR on 02/04/18 IMPRESSION: 1. Endotracheal tube catheter 4 cm above megan. 2. Nasogastric tube in stomach. 3. Right IJ catheter at cavoatrial junction. 4. Low lung volume with pulmonary vascular congestion and bilateral pleural effusions. Modified barium swallow on 02/06/18 FLUOROSCOPY TIME: 1 minute and 11 seconds. NUMBER OF IMAGES: 8 fluoroscopic screen captures IMPRESSION: No evidence of airway penetration or aspiration with any of the consistencies given. CXR on 02/07/18 IMPRESSION: Dense left lung base due to left pleural effusion and left basilar infiltrate/atelectasis. Pertinent Lab Results: as above Assessment/Plan: as above Attending MD Review Statement Documenting Attending: Doron Holt MD
--- NOTE | 2018-02-05 18:55 | PN- Cardiology ---
Subjective Subjective: * This patient continues to have trouble communicating. I believe she admits to chest discomfort and shortness of breath prior to this admission. * sinus rhythm * Normal EF on repeat echocardiogram. * potassium is 3.3 Objective Vital Signs and I&Os Vital Signs Date Time Temp Pulse Resp B/P B/P Pulse O2 O2 Flow FiO2 Mean Ox Delivery Rate 02/05 1600 98.9 104 18 106/70 02/05 1600 97 Nasal 1.0L Cannula 02/05 1600 98.9 104 18 107/70 97 Nasal 1.0L Cannula 02/05 1400 100 18 118/70 02/05 1203 99.1 103 18 121/74 02/05 1200 99.1 103 18 110/70 97 Nasal 3.0L Cannula 02/05 1200 97 Nasal 3.0L Cannula 02/05 1000 98 16 107/62 02/05 0800 98.0 93 20 104/60 02/05 0800 97 Nasal 3.0L Cannula 02/05 0800 98.0 93 20 109/68 97 Nasal 3.0L Cannula 02/05 0600 98.0 91 21 110/66 02/05 0400 98.1 91 16 108/62 02/05 0400 99 Nasal 3.0L Cannula 02/05 0000 97.6 100 26 112/62 02/05 0000 98 Nasal 3.0L Cannula 02/05 0000 97.6 100 26 112/ 98 Nasal 3.0L Cannula 02/04 2200 99.0 106 16 95/71 02/05 2000 99.9 110 23 108/64 02/04 2000 95 Nasal 3.0L Cannula Intake & Output 02/05 1600 02/05 0800 02/05 0000 02/04 1600 02/04 0800 02/04 0000 Intake Total 634 314 085 876 3714 1790 Output Total 750 631 694 7671 1350 1200 Balance -116 -86 -415 -1905 -95 590 Intake, IV 634 314 556 091 0158 1525 Intake, Oral 0 0 0 0 0 Intake, Other 100 265 Number 0 0 0 0 Bowel Movements Output, 300 250 200 Gastric Drainage Output, Urine 750 350 124 7417 1100 1000 Patient 191 lb 187 lb Weight Weight Bed scale Bed scale Measurement Method Physical Exam: General: WD/overweight female HEENT: NC/AT, PERRl, EOMI Neck: no JVD, no carotid bruit Heart: RRR Lungs: clear bilaterally anteriorly Abdomen: soft, obese, NT, +ve bowel sounds Extremities: no edema Assessment/Plan Assessment/Plan * This patient was admitted for alcohol withdrawal and symptoms of pancreatitis. She was discovered to be tachycardic with positive cardiac enzymes and an echocardiogram disclosed a poor EF. This cardiomyopathy improved to normal on her most recent echocardigram. Her heart rate has also improved on a small dose of Metoprolol. * A better history when the patient can communicate better may be helpful. At this point I would be inclined to recommend risk stratification with a stress test to assess for ischemia prior to discharge since she did demonstrate positive cardiac enzymes and may have chest pain. In the setting of alcohol abuse, this chest pain may well be GI in origin. Continue telemetry? Yes
[2018-02-06] VITALS (9 sets, daily range): BP systolic 114–135; BP diastolic 72–84
[2018-02-06 05:15] LABS: ABSOLUTE BASOPHIL COUNT 0 /CUMM (0.0-0.2); ABSOLUTE EOSINOPHIL COUNT 0.2 /CUMM (0.0-0.7); ABSOLUTE GRANULOCYTE CT 5.3 /CUMM (1.4-6.5); ABSOLUTE MONOCYTE COUNT 0.9 /CUMM (0.10-0.60); BASOPHIL % 0.7 % (0.0-2.0); GRANULOCYTE % 71.4 % (42.2-75.2); HEMATOCRIT 30.8 % (37-47); MEAN CORPUSCULAR HGB 34.2 PG (27.0-31.0); MEAN CORPUSCULAR HGB CONC 33.6 G/DL (33.0-37.0); MEAN CORPUSCULAR VOLUME 101.8 FL (81.0-99.0); MEAN PLATELET VOLUME 8.3 FL (7.4-10.4); PLATELET COUNT 350 /CUMM (130-400); RBC DISTRIBUTION WIDTH 14.9 % (11.5-14.5); RED BLOOD CELL CT 3.03 /CUMM (4.20-5.40); WHITE BLOOD CELL COUNT 7.5 /CUMM (4.8-10.8)
--- NOTE | 2018-02-06 07:19 | PN- Resident CRCU ---
Suma ROLLINS,Thais 02/06/18 0718: Subjective HPI/CRCU Issues: 1. Acute pancreatitis - resolved 2. Aspiration PNA 3. Alcohol withdrawl 4. Failed swallow evaluation - Barium swallow today 5. Acute systolic heart failure - improved EF on repeat ECHO 6. Resolved acute hypoxic respiratory failure 7. Electrolytemia 24 Hour Events: patient remained stable overnight. No acute events. Still feels weak and unable to speak well although improving every day. Working with physical therapy. Vitals stable. Labs unremarkable. Underwent barium swallow evaluation - passed and started on mechanical groud/thin liquids. Removed central line at bedside. Objective Vital Signs & I&O Last 8 Hrs of Vitals and I&O: Vital Signs Date Time Temp Pulse Resp B/P B/P Pulse O2 O2 Flow FiO2 Mean Ox Delivery Rate 02/06 1409 Room Air 1.0L 02/06 1400 96 18 134/79 02/06 1200 Room Air 02/06 1200 98.6 97 18 131/80 02/06 1200 98.6 97 18 134/80 96 Room Air 02/06 0800 Nasal 1.0L Cannula 02/06 0800 97.8 98 18 134/84 02/06 0800 97.8 98 18 134/84 95 Nasal 1.0L Cannula 02/06 0600 114 24 135/84 02/06 0400 98.4 102 20 130/84 02/06 0400 97 Nasal 1.0L Cannula 02/06 0200 96 20 129/76 02/06 0000 98.7 98 22 114/72 02/06 0000 96 Nasal 1.0L Cannula 02/06 0000 98.7 98 22 114/72 96 Nasal 1.0L Cannula 02/05 2200 98.5 97 22 126/77 02/05 2021 98.9 100 26 110/62 02/06 2000 98.5 103 24 112/64 02/06 2000 97 Nasal 1.0L Cannula 02/05 1600 98.9 104 18 106/70 02/05 1600 97 Nasal 1.0L Cannula 02/05 1600 98.9 104 18 107/70 97 Nasal 1.0L Cannula Intake & Output 02/06 1600 02/06 0800 02/06 0000 Intake Total 470 296 Output Total 1300 545 Balance -830 -249 Intake, IV 470 296 Number 0 Bowel Movements Output, Urine 1300 545 Patient 80.824 kg Weight Weight Bed scale Measurement Method Intake & Output 02/06 0800 Intake Total 296 Output Total 545 Balance -249 Intake, IV 296 Number 0 Bowel Movements Output, Urine 545 Patient 80.824 kg Weight Weight Bed scale Measurement Method Exam General Appearance: well developed/nourished, alert, awake, comfortable Head: atraumatic, normal appearance Ears, Nose, Throat: normal pharynx, normal ENT inspection Neck: normal inspection, supple Respiratory: normal breath sounds, chest non-tender, no respiratory distress Cardiovascular: regular rate/rhythm, edema, normal peripheral pulses Gastrointestinal: normal bowel sounds, soft, non-tender Extremities: normal inspection, normal capillary refill, normal range of motion Weaning Parameters NIF: 38 Minute Volume: 6.4 Resp rate: 20 Vt: 446 Heart Rate: 97 Weaning Schedule Start Time: 0920 Minute Volume: 7.5 Resp Rate: 17 Vt: 308 Heart Rate: 97 End Time: 1135 Minute Volume: 7.8 Resp Rate: 16 Vt: 400 Heart Rate: 90 IV Drips IV Drips: NONE Nutrition Nutrition: P.O. diet Current Medications: Current Medications Sig/Lucy Start time Last Medication Dose Route Stop Time Status Admin Ampicillin Sodium/ 3,000 MG Q6H 02/06 0900 DC 02/06 Sulbactam Sodium IV 0916 Sodium Chloride 100 ML Ampicillin Sodium/ 3,000 MG Q6H 02/01 2000 DC 02/05 Sulbactam Sodium IV 1409 Sodium Chloride 100 ML Benzocaine/Menthol 1 RAZIA Q2P PRN 02/04 1300 AC PO Cyanocobalamin 1,000 MCG DAILY 02/01 0900 AC 02/04 PO 0821 Dextrose/Sodium 1,000 ML Q20H 02/04 1930 DC 02/06 Chloride IV 1045 Diphenhydramine HCl 1 MARIELY BID 02/01 0945 AC 02/06 TOP 0917 Enoxaparin Sodium 40 MG DAILY 01/31 1044 AC 02/06 SC 0917 Folic Acid 1 MG DAILY 02/01 0900 AC 02/04 PO 0821 Hydromorphone HCl 0.4 MG Q6P PRN 01/31 0930 AC 02/05 IV 1656 Lisinopril 10 MG QAM 01/31 1041 AC 02/04 PO 0821 Lorazepam 2 MG Q6 02/05 1302 AC 02/06 IV 1206 Lorazepam 0 Q1P PRN 02/05 1245 AC IV Metoprolol Tartrate 12.5 MG BID 02/03 1400 AC 02/04 PO 0821 Multivitamins 15 ML DAILY 02/04 0900 AC 02/04 PO 0821 Pantoprazole Sodium 40 MG DAILY 01/31 1042 AC 02/06 IV 0917 Thiamine HCl 100 MG DAILY 02/01 0900 AC 02/04 PO 0821 Trimethobenzamide HCl 200 MG 4 TIMES/DAY PRN 01/31 1615 AC 02/02 IM 0835 Impression/Plan Impression/Problem List Impression: 47-year-old lady chronic EtOH use present with acute onset of abdominal pain and is found to have acute pancreatitis based on elevated lipase level and CT findings of inflammatory areas around the pancreas. She transferred to ICU for the ativan drip due to elevated CIWA score was above 70, developed acute hypoxic respiratory failure fracture to nonrebreather mask and requiring intubation. Patient had received 7 L lactated Ringer prior hypoxic event, in addition to intubation patient was given IV 20 mg of Lasix and labetalol. PLAN Respiratory Acute hypoxic respiratory failure requiring intubation - resolved Extubated currently. Currently saturating well on RA. Infectious Aspiration pneumonia CXR suggestive of pneumonia in the setting of vomiting secondary to pancreatitis. * Completed 5 day course of unasyn Cardiology Acute systolic heart failure - possibly tachycardia induced Patient had EF 25-30% with severe posterior wall hypokinesis, mild LVH. Probably secondary to tachycarida or stress induced. She might benefit catheterization to rule out coronary disease and closer follow up [facility] repeat ECHO. * Lisinopril for afterload reduction * EF improved to 60% without wall motion abnormalities on repeated ECHO * Stress test prior to discharge Demand ischemia Patient noted to have mild elevation of troponin, is most likely secondary to supply demand mismatch in the setting of active withdrawal. No chest pain, EKG changes. * Trended down * Might benefit outpatient cath Hematology stable Metabolic Electrolyte deraingements of hypomagnesemia and Hypokalemia consistent with Etoh detox and acute pancreatits, will aggresively replenish mag, phos and K. Alimentary Acute pancreatitis Appears secondary to alcohol consumption. US liver ruled out gall stones, did show fatty infiltration. Lipase 7000 --> 1000. No acute changes so far. BISAP score 2 (for pelural effusion/SIRS). Abdomen is soft on exam. SIRS > 48hrs - severe. Presence of PaO2/FiO2 score of 2.4 suggest organ failure. * Passed barium swallow today - started on mechanical ground/thin diet Transaminitis AST/ALT in 200s at admission - resolved Neuro AAO X 3. Critical illness myopathy Patient had significant weakness after extubation. She was unable to talk for the first day, unable to move extremities to the fullest extent. Etiology could be - neuromuscular agents given during central line insertion. She received Etomidate 15mg during first attempt followed by vecuronium 8.4mg during 2nd attempt. she was very agitated during placement requiring high dose along with ativan drip. She tried hard to pull the ET tube out multiple times due to irritation. * Recovering slowly * Physical therapy/occupational therapy Alcohol withdrawl Discontinued ativan drip and started on scheduled and PRN ativan. consulted forensic social worker for substance abuse. DVT prophylaxis SC lovenox Code status Full code Problem List: 1. Pancreatitis, acute 2. Acute respiratory failure with hypoxia 3. Systolic heart failure 4. Macrocytic anemia Pain Ratin Tomorrow's Labs & Rationales: cbc, icu bundle Plan DVT/Prophylaxis: pharmacological Doron Holt MD 02/06/18 1239: Attending MD Review Statement Attending Sign Off Attending Cosign Statement: I have: examined this patient, reviewed avalbl EMR data, personally reviewd images, discussd w/resident/PA/BALL THREAD MACHINE TENDER, discussed mgmt plan w/silvestre, discussed mgmt plan w/CM, discussed mgmt plan w/pt, agreed w/resident/PA/BALL THREAD MACHINE TENDER, amended to note. Other Findings: IDoron M.D. have examined this patient, reviewed available EMR data, personally reviewed images, discussed with resident/PA/BALL THREAD MACHINE TENDER, discussed management plan with housestaff and nursing staff, discussed managment plan all of healthcare providers, discussed management plan with patient and/or family, agreed with resident/PA/BALL THREAD MACHINE TENDER. The past history and parts of the chart have been autopopulated. Impression 47 year old woman * resolved acute hypoxemic respiratory failure secondary to fluid administration and atelectasis, underlying likely aspiration pneumonia - IMPROVING * resolving acute pancreatitis secondary to etoh * acute etoh withdrawal/dependence - ativan * improved cardiomyopathy * generalized weakness - likely ICU myopathy Plan Respiratory/ID -aspiration pna, course of unasyn CVS -f/u cardiology -cardiac function improved Heme -f/u coags, cbcs Metabolic -replete lytes - replete k, phos, mag as needed -transaminitis resolved Alimentary -swallowing evaluation - barium swallow Neuro -ativan iv until can swallow -f/u ciwa protocol -some weakness - check CPK, if not improving can consider neurology evaluation DVT prophylaxis at all times TTS 35 min
--- NOTE | 2018-02-06 10:31 | PN- Cardiology ---
Subjective Subjective: * Patient is despondent. No specific complaints other than sadness. She denies chest discomfort now or with exertion. * sinus rhythm * improved potassium to 3.7 * macrocytic anemia noted Objective Vital Signs and I&Os Vital Signs Date Time Temp Pulse Resp B/P B/P Pulse O2 O2 Flow FiO2 Mean Ox Delivery Rate 02/06 0800 Nasal 1.0L Cannula 02/06 0800 97.8 98 18 134/84 02/06 0800 97.8 98 18 134/84 95 Nasal 1.0L Cannula 02/06 0600 114 24 135/84 02/06 0400 98.4 102 20 130/84 02/06 0400 97 Nasal 1.0L Cannula 02/06 0200 96 20 129/76 02/06 0000 98.7 98 22 114/72 02/06 0000 96 Nasal 1.0L Cannula 02/06 0000 98.7 98 22 114/72 96 Nasal 1.0L Cannula 02/05 2200 98.5 97 22 126/77 02/05 202 98.9 100 26 110/62 02/05 2000 98.5 103 24 112/64 02/05 2000 97 Nasal 1.0L Cannula 02/05 1600 98.9 104 18 106/70 02/05 1600 97 Nasal 1.0L Cannula 02/05 1600 98.9 104 18 107/70 97 Nasal 1.0L Cannula 02/05 1400 100 18 118/70 02/05 1203 99.1 103 18 121/74 02/05 1200 99.1 103 18 110/70 97 Nasal 3.0L Cannula 02/05 1200 97 Nasal 3.0L Cannula Intake & Output 02/06 1600 02/06 0800 02/06 0000 02/05 1600 02/05 0800 02/05 0000 Intake Total 296 634 314 385 Output Total 545 750 400 800 Balance -249 -116 -86 -415 Intake, IV 296 634 314 385 Intake, Oral 0 0 Number 0 0 0 Bowel Movements Output, Urine 545 750 400 800 Patient 178 lb 191 lb Weight Weight Bed scale Bed scale Measurement Method Physical Exam: General: WD/overweight female HEENT: NC/AT, PERRl, EOMI Neck: no JVD, no carotid bruit Heart: RRR Lungs: clear bilaterally anteriorly Abdomen: soft, obese, NT, +ve bowel sounds Extremities: no edema Assessment/Plan Assessment/Plan * This patient was admitted for alcohol withdrawal and symptoms of pancreatitis. She was discovered to be tachycardic with positive cardiac enzymes and an echocardiogram disclosed a poor EF. This cardiomyopathy improved to normal on her most recent echocardiogram. Her heart rate has also improved on a small dose of Metoprolol. * At this point I would be inclined to recommend risk stratification with a stress test to assess for ischemia prior to discharge since she did demonstrate positive cardiac enzymes and may have chest pain. In the setting of alcohol abuse, this chest pain may well be GI in origin. * This patient need psychiatric care for depression. Continue telemetry? Yes
--- NOTE | 2018-02-06 14:31 | RADIOLOGY REPORT ---
EXAMINATION: FL MODIFIED BARIUM SWALLOW CLINICAL INFORMATION: Failed bedside swallow evaluation. Intubated, status post extubation. Acute pancreatitis-resolved. COMPARISON: None TECHNIQUE: Modified barium swallow was performed with fluoroscopic evaluation in the sitting lateral position with speech pathology present. The patient was given barium-containing consistencies, including puree, honey, nectar, thin, bread, and cracker. FINDINGS: There is no penetration or aspiration or significant residual with puree, honey, nectar, and thin. With bread and cracker, there is premature spillage from the oral cavity to the vallecula with a mild delay in triggering of the swallowing reflex. There is otherwise no airway penetration with these consistencies. There is otherwise good swallowing function. FLUOROSCOPY TIME: 1 minute and 11 seconds. NUMBER OF IMAGES: 8 fluoroscopic screen captures. IMPRESSION: No evidence of airway penetration or aspiration with any of the consistencies given.
--- NOTE | 2018-02-06 15:53 | Patient Discharge Instructions ---
Discharge Instructions General Discharge Information You were seen/treated for: Alcohol withdrawl Acute pancreatitis Aspiration pneumonia Special Instructions: Please follow up with your PCP in a week after discharge for Please follow up with , your veneer department manager, within a week after discharge. You'll need a stress test as an outpatient but can be arranged at that time. We will call you on SundayFebruary 12 and let you know when your appoint with IOP Diet Continue normal diet: Yes Activity Full Activity/No Limits: Yes Acute Coronary Syndrome Inclusion Criteria At DC or during hospital stay patient has or had the following: ACS DIAGNOSIS No Discharge Core Measures Meds if any: Prescribed or Continued at Discharge Meds if any: NOT Prescribed or Continued at Discharge Congestive Heart Failure Inclusion Criteria At DC or during hospital stay patient has or had the following: CHF DIAGNOSIS Yes Discharge Core Measures Meds if any: Prescribed or Continued at Discharge JOSH/ARB for EF <40% Yes Meds if any: NOT Prescribed or Continued at Discharge Cerebrovascular accident Inclusion Criteria At DC or during hospital stay patient has or had the following: CVA/TIA Diagnosis No Discharge Core Measures Meds if any: Prescribed or Continued at Discharge Meds if any: NOT Prescribed or Continued at Discharge Venous thromboembolism Inclusion Criteria VTE Diagnosis No VTE Type NONE VTE Confirmed by (Test) NONE Discharge Core Measures - Per Current guidelines, there needs to be overlap - treatment for the first 5 days of Warfarin therapy. - If discharged on Warfarin prior to 5 days of - overlap therapy, the patient will need to be - assessed for post discharge needs including - *Post discharge parental anticoagulation - *Warfarin and/or parental anticoagulation education - *Follow up date to check INR post discharge At least 5 days overlap therapy as Inpatient No Meds if any: Prescribed or Continued at Discharge Note: Overlap Therapy is Warfarin and Anticoagulant Meds if any: NOT Prescribed or Continued at Discharge
[2018-02-07 01:04] VITALS: BP 146/82
--- NOTE | 2018-02-07 03:21 | RADIOLOGY REPORT ---
EXAMINATION: XR PORTABLE CHEST CLINICAL INFORMATION: Shortness of breath. COMPARISON: Chest x-ray February 04, 2018 TECHNIQUE: Portable frontal view of the chest was obtained. 2:50 AM FINDINGS: Lung volume low. Hazy opacity left lung base with partial silhouetting of left diaphragm. This is likely due to a left effusion and left basilar consolidation/atelectasis. The right lung is clear. There is no significant central pulmonary vascular congestion. IMPRESSION: Dense left lung base due to left pleural effusion and left basilar infiltrate/atelectasis.
[2018-02-07 06:59] VITALS: BP 140/80
--- NOTE | 2018-02-07 07:28 | PN- Housestaff ---
Lizandro ROLLINS,[facility] 02/07/18726: Subjective Follow-up For: Acute pancreatitis Alcohol withdrawal Aspiration pneumonia Type II NC Acute systolic dysfunction Critical illness myopathy Transaminitis Tele-Events Since Last Visit: Sinus tachycardia Heart rate 92-121 Subjective: Patient unable to speak clearly, mumbling when asked questions. Alert and oriented. Review of Systems Constitutional: Reports: no symptoms. Objective Last 24 Hrs of Vital Signs/I&O Vital Signs Date Time Temp Pulse Resp B/P B/P Pulse O2 O2 Flow FiO2 Mean Ox Delivery Rate 02/07 1522 98.8 102 20 138/80 92 Room Air 02/07 1137 Room Air 02/07 1135 95 Room Air 02/07 1035 96 140/80 02/07 1035 96 140/80 02/07 0659 98.5 96 18 140/80 92 Room Air 02/07 0108 92 Room Air 02/07 0104 99.2 106 20 146/82 106 Room Air 02/07 0000 93 Room Air 02/06 2056 99.4 104 20 136/70 02/06 1800 99.9 120 24 126/80 02/06 1600 98.4 98 20 126/80 02/06 1600 98.4 98 20 126/80 94 Room Air Intake & Output 02/07 1600 02/07 0800 02/07 0000 Intake Total 120 300 Output Total 1400 1200 Balance -1280 -900 Intake, Oral 120 300 Number 0 1 Bowel Movements Output, Urine 1400 1200 Physical Exam General Appearance: Alert, Cooperative, No Acute Distress Skin: No Rashes, No Breakdown Cardiovascular: Regular Rate, Normal S1, Normal S2, No Murmurs Lungs: Normal Air Movement Abdomen: Normal Bowel Sounds, Soft, No Tenderness Extremities: No Clubbing, No Cyanosis, No Edema, Normal Pulses Current Medications: Current Medications Sig/Lucy Start time Last Medication Dose Route Stop Time Status Admin Benzocaine/Menthol 1 RAZIA Q2P PRN 02/04 1300 AC PO Cyanocobalamin 1,000 MCG DAILY 02/01 09 AC 02/07 PO 1035 Diphenhydramine HCl 1 MARIELY BID 02/01 0945 AC 02/07 TOP 1034 Enoxaparin Sodium 40 MG DAILY 01/31 1044 AC 02/07 SC 1034 Folic Acid 1 MG DAILY 02/01 0900 AC 02/07 PO 1035 Hydromorphone HCl 0.4 MG Q6P PRN 01/31 930 DC 02/05 IV 1656 Lisinopril 10 MG QAM 01/31 1041 AC 02/07 PO 1035 Lorazepam 0.5 MG .STK-MED ONE 02/07 0555 DC PO 02/07 0556 Lorazepam 1 MG .STK-MED ONE 02/07 0458 DC PO 02/07 0459 Lorazepam 0.5 MG .STK-MED ONE 02/07 0008 DC PO 02/07 0009 Lorazepam 1 MG .STK-MED ONE 02/07 0007 DC PO 02/07 0008 Lorazepam 1.5 MG Q6 02/06 1800 AC 02/07 PO 1521 Lorazepam 2 MG Q6 02/05 1302 DC 02/06 IV 1206 Lorazepam 0 Q1P PRN 02/05 1245 AC 02/07 IV 0211 Magnesium Oxide 400 MG BID 02/07 0900 AC 02/07 PO 1035 Metoprolol Tartrate 12.5 MG BID 02/03 1400 AC 02/07 PO 1035 Multivitamins 15 ML DAILY 02/04 0900 AC 02/04 PO 0821 Omeprazole 40 MG DAILY AC 02/07 0741 AC 02/07 PO 1034 Pantoprazole Sodium 40 MG DAILY 01/31 1042 DC 02/06 IV 0917 Thiamine HCl 100 MG DAILY 02/01 0900 AC 02/07 PO 1035 Trimethobenzamide HCl 200 MG 4 TIMES/DAY PRN 01/31 1615 AC 02/02 IM 0835 Assessment/Plan Assessment: This is a 47-year-old lady with a past medical history of hypertension and daily alcohol use presented with one-day history of abdominal pain in the setting of elevated lipase (7174) and CT finding suggestive of pancreatitis. Initially patient was admitted to general medicine floor for acute pancreatitis and etoh detox, however later in the evening, her ciwa remained elevated with significant tachycardia, decision was made to transfer to ICU for Ativan drip. Acute hypoxic respiratory failure; Resolved Patient initial chest x-ray on 01/31/18 was suggestive of pulmonary edema, after receiving 7 L of LR that she received as part of treatment protocol for pancreatitis.She desaturated on nonrebreather mask to o2 levels of 70%, and was eventually intubated. She also found to have acute decrease in EF in the setting of acute illness (unknown previous EF) and known to be tachycardic at baseline which could have contributed for decompensation. She was intubated due to acute decompensation of her respiratory status. CTAngio ruled out PE in the setting of persistent tachycardia. Stabilized and extubated on 02/04/18, remains stable on RA. Alcohol withdrawl; She was placed on ativan drip. Once stabilized gradually taperred off on 02/05/18. Not started on any librium given elevated trasaminases. * Highest CIWA for the past 24 hours is 12. * Ativan 1.5 mg Q 6 * IV ativan per CIWA protocol * Multivitamin, folate, thiamine * Follow up with social worker psychiatric Acute pancreatitis; Resolved Appears secondary to alcohol consumption. US liver ruled out gall stones, did show fatty infiltration. Lipase trended down 7000 --> 1000. BISAP score 2 (for pelural effusion/SIRS) at admission. Abdomen is soft on exam. SIRS > 48hrs - severe. Presence of PaO2/FiO2 score of 2.4 suggest organ failure. She was placed on OG tube for decompression which was never used for feeding. After extubation she failed swallow eval on 02/05/18. She passed barium swallow on 02/06 placed on mechanical soft and thin diet. Tolerating well. Acute systolic dysfunction in the setting of tachycadia/etoh/stress Patient had EF 25-30% with severe posterior wall hypokinesis, mild LVH. Probably secondary to tachycarida or stress induced. She was started on metoprolol 12.5mg BID due to persistent tachycardia, lisinopril to decrease after load. Repeat ECHO on 02/04/18 did show improvement in EF to 60% without wall motion abnormalities. Cardiology on board and wonts to do a stress test before discharge. Elevated Troponin; Likely type 2 NC. Patient noted to have mild elevation of troponin which trended down , 0.63-->0.80-->0.50. It is most likely secondary to supply demand mismatch in the setting of active withdrawal. No chest pain or EKG changes. Aspiration pneumonia CXR suggestive of airspace disease that could suggest pneumonia especially in the context of dy heaving and vomiting prior to admission - possilbe aspiratory pna. She got treated with IV unasyn for a total of 5 days ideally. Transaminitis; resolved AST/ALT - 249/210 at admission. Back to normal level. Critical illness myopathy Patient had significant weakness after extubation. She was unable to talk for the first day, unable to move extremities to the fullest extent. Etiology is unclear, could be - neuromuscular agents given during central line insertion. She received Etomidate 15mg during first attempt followed by vecuronium 8.4mg during 2nd attempt. she was very agitated during placement requiring high dose along with ativan drip. - Continue working with physcial therpay/occupational therapy. DVT prophylaxis; S/C Lovenox and ALPS Patient is full code Problem List: 1. Systolic heart failure 2. Pancreatitis, acute Pain Ratin Pain Location: NA Pain Goal: Remain pain free Pain Plan: Pain Pathway Tomorrow's Labs & Rationales: None Iesha Barth MD 02/07/18 1054: Attending MD Review Statement Attending Statement Attending MD Statement: examined this patient, discuss w/resident/PA/YARD RIGGER, agreed w/resident/PA/YARD RIGGER, reviewed EMR data (avail) Attending Assessment/Plan: 47F PMH HTN admitted initially for acute pancreatitis with course complicated by alcohol withdrawal delirium requring Ativan drip and intubation, extubated 02/04, with aspiration pneumonia, elevated troponin, and continued delirium. She has mumbled speech today and is a poor historian. She had delirium overnight. She remains afebrile with stable vitals. 1. Acute pancreatitis (resolved) 2. Acute hypoxemic respiratory failure 3. Alcohol withdrawal delirium 4. Type 2 myocardial infarction 5. Alcoholic cardiomyopathy Plan - Continue on telemetry - Advance diet as tolerated - Continue Unasyn - Follow speech therapy recommendations - Follow cardiology recommendations - Likely stress test tomorrow - Continue Ativan taper - Continue home medications - DVT PPx
--- NOTE | 2018-02-07 12:25 | PN- Pulmonary ---
Subjective HPI/Critical Care Issues: pt seen and examined transferred out of icu strength improving passed swallowing evaluation no cough, no dypsnea Objective Current Medications: Current Medications Sig/Lucy Start time Last Medication Dose Route Stop Time Status Admin Ampicillin Sodium/ 3,000 MG Q6H 02/06 0900 DC 02/06 Sulbactam Sodium IV 0916 Sodium Chloride 100 ML Benzocaine/Menthol 1 RAZIA Q2P PRN 02/04 1300 AC PO Cyanocobalamin 1,000 MCG DAILY 02/01 0900 AC 02/07 PO 1035 Dextrose/Sodium 1,000 ML Q20H 02/04 1930 DC 02/06 Chloride IV 1045 Diphenhydramine HCl 1 MARIELY BID 02/01 0945 AC 02/07 TOP 1034 Enoxaparin Sodium 40 MG DAILY 01/31 1044 AC 02/07 SC 1034 Folic Acid 1 MG DAILY 02/01 0900 AC 02/07 PO 1035 Hydromorphone HCl 0.4 MG Q6P PRN 01/31 0930 DC 02/05 IV 1656 Lisinopril 10 MG QAM 01/31 1041 AC 02/07 PO 1035 Lorazepam 0.5 MG .STK-MED ONE 02/07 0008 DC PO 02/07 0009 Lorazepam 1 MG .STK-MED ONE 02/07 0007 DC PO 02/07 0008 Lorazepam 1.5 MG Q6 02/06 1800 AC 02/07 PO 0555 Lorazepam 2 MG Q6 02/05 1302 DC 02/06 IV 1206 Lorazepam 0 Q1P PRN 02/05 1245 AC 02/07 IV 0211 Magnesium Oxide 400 MG BID 02/07 0900 AC 02/07 PO 1035 Metoprolol Tartrate 12.5 MG BID 02/03 1400 AC 02/07 PO 1035 Multivitamins 15 ML DAILY 02/04 0900 AC 02/04 PO 0821 Omeprazole 40 MG DAILY AC 02/07 0741 AC 02/07 PO 1034 Pantoprazole Sodium 40 MG DAILY 01/31 1042 DC 02/06 IV 0917 Thiamine HCl 100 MG DAILY 02/01 0900 AC 02/07 PO 1035 Trimethobenzamide HCl 200 MG 4 TIMES/DAY PRN 01/31 1615 AC 02/02 IM 0835 Vital Signs & I&O Last 24 Hrs of Vitals and I&O: Vital Signs Date Time Temp Pulse Resp B/P B/P Pulse O2 O2 Flow FiO2 Mean Ox Delivery Rate 02/07 1137 Room Air 02/07 1135 95 Room Air 02/07 1035 96 140/80 02/07 1035 96 140/80 02/07 0659 98.5 96 18 140/80 92 Room Air 02/07 0108 92 Room Air 02/07 0104 99.2 106 20 146/82 106 Room Air 02/07 0000 93 Room Air 02/06 2056 99.4 104 20 136/70 02/06 1800 99.9 120 24 126/80 02/06 1600 98.4 98 20 126/80 02/06 1600 98.4 98 20 126/80 94 Room Air 02/06 1409 Room Air 1.0L 02/06 1400 96 18 134/79 Intake & Output 02/07 1600 02/07 0800 02/07 0000 Intake Total 120 300 Output Total 1400 1200 Balance -1280 -900 Intake, Oral 120 300 Number 0 1 Bowel Movements Output, Urine 1400 1200 Exam Other Physical Findings: gen awake and alert head/neck - ncat cvs s1, s2 lungs rare rhonchi abd soft, bs+ ext without edema Impression/Plan Impression/Plan Impression/Plan: Impression 47 year old woman * resolved ICU issues, now on telemetry * aspiration pneumonia * atelectasis/pleural effusions from recent cardiomyopathy Plan -complete course of abx -recommend repeat CXR within 6 weeks (can be done with PMD) -incentive spirometry -reduce fio2 as tolerated -PT/OT -call with any questions DVT prophylaxis at all times
[2018-02-07 15:22] VITALS: BP 138/80
--- NOTE | 2018-02-07 18:22 | PN- Cardiology ---
Subjective Subjective: * Patient is more verbal and without complaints. * sinus tachycardia Objective Vital Signs and I&Os Vital Signs Date Time Temp Pulse Resp B/P B/P Pulse O2 O2 Flow FiO2 Mean Ox Delivery Rate 02/07 1522 98.8 102 20 138/80 92 Room Air 02/07 1137 Room Air 02/07 1135 95 Room Air 02/07 1035 96 140/80 02/07 1035 96 140/80 02/07 0659 98.5 96 18 140/80 92 Room Air 02/07 0108 92 Room Air 02/07 0104 99.2 106 20 146/82 106 Room Air 02/07 0000 93 Room Air 02/06 2056 99.4 104 20 136/70 Intake & Output 02/07 1600 02/07 0800 02/07 0000 02/06 1600 02/06 0802/06 0000 Intake Total 960 120 300 470 296 Output Total 1350 1400 1200 1300 545 Balance -390 -1280 -900 -830 -249 Intake, IV 470 296 Intake, Oral 960 120 300 Number 0 0 1 0 Bowel Movements Output, Urine 1350 1400 1200 1300 545 Patient 178 lb Weight Weight Bed scale Measurement Method Physical Exam: General: WD/overweight female HEENT: NC/AT, PERRl, EOMI Neck: no JVD, no carotid bruit Heart: tachycardic with regular rhythm Lungs: clear bilaterally anteriorly Abdomen: soft, obese, NT, +ve bowel sounds Extremities: no edema Neuro: finger to nose is abnormal bilaterally Assessment/Plan Assessment/Plan * This patient was admitted for alcohol withdrawal and symptoms of pancreatitis. She was discovered to be tachycardic with positive cardiac enzymes and an echocardiogram disclosed a poor EF. According to the patient's she is chronically tachycardic at her baseline. She also runs on a regular basis without symptoms. Her cardiomyopathy improved to normal on her most recent echocardiogram. Increase Metoprolol to 25mg BID. * At this point I would be inclined to recommend risk stratification with a stress test to assess for ischemia prior to discharge since she did demonstrate positive cardiac enzymes and may have chest pain. If she can walk then I would prefer a treadmill nuclear stress test. At the present time she appears to lack coordination and therefore may need a pharmacologic stress test depending on the rate and extent of her recovery. In the setting of alcohol abuse, her prior chest pain may well be GI in origin and related to gastritis or pancreatitis from alcohol. * This patient need psychiatric care for depression as well as for her alcohol abuse. Continue telemetry? Yes
[2018-02-07 23:18] VITALS: BP 136/84
[2018-02-08 06:43] VITALS: BP 132/74
--- NOTE | 2018-02-08 07:27 | PN- Housestaff ---
Lizandro ROLLINS,[facility] 02/08/18 0727: Subjective Follow-up For: Acute pancreatitis Alcohol withdrawal Aspiration pneumonia Type II AR Acute systolic dysfunction Critical illness myopathy Transaminitis Tele-Events Since Last Visit: Sinus tachycardia Heart rate 96-112 Subjective: Patient answering questions in single words. Complaints of burning with urination but says that has been going on for months. Denies any fever, chills, chest pain, palipitations or SOB. Review of Systems Constitutional: Reports: no symptoms. EENTM: Reports: no symptoms. Cardiovascular: Reports: no symptoms. Respiratory: Reports: no symptoms. Gastrointestinal: Reports: no symptoms. Genitourinary: Reports: no symptoms, see HPI. Musculoskeletal: Reports: no symptoms. Skin: Reports: no symptoms. Neurological/Psychological: Reports: no symptoms. Hematologic/Endocrine: Reports: no symptoms. Immunologic/Allergic: Reports: no symptoms. Objective Last 24 Hrs of Vital Signs/I&O Vital Signs Date Time Temp Pulse Resp B/P B/P Pulse O2 O2 Flow FiO2 Mean Ox Delivery Rate 02/08 1448 99.9 99 20 110/69 92 Room Air 02/08 1200 98.4 100 20 120/70 02/08 1052 98 134/72 02/08 1052 98 134/72 02/08 0800 98.6 100 16 118/60 02/08 0643 98.6 101 20 132/74 93 Room Air 02/08 0000 Room Air Room Air 02/07 2318 99.5 100 16 136/84 93 Room Air 02/07 2055 105 120/68 02/07 1600 Room Air Intake & Output 02/08 1600 02/08 0800 02/08 0000 Intake Total 160.5 400 Output Total 200 775 Balance -200 160.5 -375 Intake, IV 10.5 Intake, Oral 150 400 Number 3 3 Bowel Movements Output, Urine 200 775 Patient 173 lb Weight Physical Exam General Appearance: Cooperative, No Acute Distress Cardiovascular: Regular Rate, Normal S1, Normal S2 Lungs: Normal Air Movement Abdomen: Normal Bowel Sounds, Soft, No Tenderness Extremities: No Clubbing, No Cyanosis, No Edema Current Medications: Current Medications Sig/Lucy Start time Last Medication Dose Route Stop Time Status Admin Benzocaine/Menthol 1 RAZIA Q2P PRN 02/04 1300 AC PO Cyanocobalamin 1,000 MCG DAILY 02/01 0900 AC 02/08 PO 1050 Diphenhydramine HCl 1 MARIELY BID 02/01 0945 AC 02/08 TOP 0949 Enoxaparin Sodium 40 MG DAILY 01/31 1044 AC 02/08 SC 1054 Folic Acid 1 MG DAILY 02/01 0900 AC 02/08 PO 1049 Lisinopril 10 MG QAM 01/31 1041 AC 02/08 PO 1052 Lorazepam 1.5 MG Q8 02/08 1400 AC 02/08 PO 1400 Lorazepam 1.5 MG Q6 02/06 1800 DC 02/08 PO 0623 Lorazepam 0 Q1P PRN 02/05 1245 AC 02/08 IV 0156 Magnesium Oxide 400 MG BID 02/07 0900 AC 02/08 PO 1050 Metoprolol Tartrate 25 MG BID 02/07 2100 AC 02/08 PO 1052 Metoprolol Tartrate 12.5 MG BID 02/03 1400 DC 02/07 PO 1035 Multivitamins 15 ML DAILY 02/04 0900 AC 02/08 PO 1051 Nystatin 1 MARIELY TID PRN 02/07 1630 AC 02/07 TOP 2050 Omeprazole 40 MG DAILY AC 02/07 0741 AC 02/08 PO 0623 Patient Medication 1 ED ONE ONE 02/08 1300 DC Teaching ED 02/08 1301 Thiamine HCl 100 MG DAILY 02/01 0900 AC 02/08 PO 1050 Trimethobenzamide HCl 200 MG 4 TIMES/DAY PRN 01/31 1615 AC 02/08 IM 0947 Last 24 Hrs of Lab/Altaf Results Last 24 Hrs of Labs/Mics: Laboratory Tests 02/08/18 0654: Magnesium 1.7, Alkaline Phosphatase 92 Microbiology 02/08 1259 URINE ROUT: Urine Culture - ORD Assessment/Plan Assessment: This is a 47-year-old lady with a past medical history of hypertension and daily alcohol use presented with one-day history of abdominal pain in the setting of elevated lipase (7174) and CT finding suggestive of pancreatitis. Initially patient was admitted to general medicine floor for acute pancreatitis and etoh detox, however later in the evening, her ciwa remained elevated with significant tachycardia, decision was made to transfer to ICU for Ativan drip. Acute hypoxic respiratory failure; Resolved Patient initial chest x-ray on 01/31/18 was suggestive of pulmonary edema, after receiving 7 L of LR that she received as part of treatment protocol for pancreatitis.She desaturated on nonrebreather mask to o2 levels of 70%, and was eventually intubated. She also found to have acute decrease in EF in the setting of acute illness (unknown previous EF) and known to be tachycardic at baseline which could have contributed for decompensation. She was intubated due to acute decompensation of her respiratory status. CTAngio ruled out PE in the setting of persistent tachycardia. Stabilized and extubated on 02/04/18, remains stable on RA. Alcohol withdrawl; She was placed on ativan drip. Once stabilized gradually taperred off on 02/05/18. Not started on any librium given elevated trasaminases. * Highest CIWA for the past 24 hours is 10. * Change Ativan to 1.5 mg Q 8 * IV ativan per CIWA protocol * Multivitamin, folate, thiamine * Follow up with social services counselor * Psych Consult for depression and alcohol abuse Acute pancreatitis; Resolved Appears secondary to alcohol consumption. US liver ruled out gall stones, did show fatty infiltration. Lipase trended down 7000 --> 1000. BISAP score 2 (for pelural effusion/SIRS) at admission. Abdomen is soft on exam. SIRS > 48hrs - severe. Presence of PaO2/FiO2 score of 2.4 suggest organ failure. She was placed on OG tube for decompression which was never used for feeding. After extubation she failed swallow eval on 02/05/18. She passed barium swallow on 02/06 placed on mechanical soft and regular thin diet. Tolerating well. Acute systolic dysfunction in the setting of tachycadia/etoh/stress Patient had EF 25-30% with severe posterior wall hypokinesis, mild LVH. Probably secondary to tachycarida or stress induced. She was started on metoprolol 12.5mg BID due to persistent tachycardia, lisinopril to decrease after load. Repeat ECHO on 02/04/18 did show improvement in EF to 60% without wall motion abnormalities. Cardiology on board and wants to do a stress test before discharge. Elevated Troponin; Likely type 2 AR. Patient noted to have mild elevation of troponin which trended down , 0.63-->0.80-->0.50. It is most likely secondary to supply demand mismatch in the setting of active withdrawal. No chest pain or EKG changes. Aspiration pneumonia CXR suggestive of airspace disease that could suggest pneumonia especially in the context of dy heaving and vomiting prior to admission - possilbe aspiratory pna. She got treated with IV unasyn for a total of 5 days. Transaminitis; resolved AST/ALT - 249/210 at admission. Back to normal level. Critical illness myopathy Patient had significant weakness after extubation. She was unable to talk for the first day, unable to move extremities to the fullest extent. Etiology is unclear, could be - neuromuscular agents given during central line insertion. She received Etomidate 15mg during first attempt followed by vecuronium 8.4mg during 2nd attempt. she was very agitated during placement requiring high dose along with ativan drip. - Continue working with physcial therpay/occupational therapy. DVT prophylaxis; S/C Lovenox and ALPS Patient is full code Problem List: 1. Pancreatitis, acute Pain Ratin Pain Location: NA Pain Goal: Remain pain free Pain Plan: Pain Pathway Tomorrow's Labs & Rationales: CBC, BEP Iesha Barth MD 02/08/18 1359: Attending MD Review Statement Attending Statement Attending MD Statement: examined this patient, discuss w/resident/PA/GED PREPARATION TEACHER, agreed w/resident/PA/GED PREPARATION TEACHER, reviewed EMR data (avail) Attending Assessment/Plan: 47F PMH HTN admitted initially for acute pancreatitis with course complicated by alcohol withdrawal delirium requring Ativan drip and intubation, extubated 02/04, with aspiration pneumonia, elevated troponin, and continued delirium. She has mumbled speech today and is a poor historian. She had delirium overnight. She remains afebrile with stable vitals. 1. Acute pancreatitis (resolved) 2. Acute hypoxemic respiratory failure 3. Alcohol withdrawal delirium 4. Type 2 myocardial infarction 5. Alcoholic cardiomyopathy Plan - Continue on telemetry - Advance diet as tolerated - Continue Unasyn - Follow speech therapy recommendations - Follow cardiology recommendations - Stress test next week - Continue Ativan taper - Continue home medications - DVT PPx
[2018-02-08 08:00] VITALS: BP 118/60
--- NOTE | 2018-02-08 09:11 | PN- Cardiology ---
Subjective Subjective: * Patient is less communicative today with no reported problems or complaints. * tachycardic at rest. Objective Vital Signs and I&Os Vital Signs Date Time Temp Pulse Resp B/P B/P Pulse O2 O2 Flow FiO2 Mean Ox Delivery Rate 02/08 0643 98.6 101 20 132/74 93 Room Air 02/08 0000 Room Air Room Air 02/07 2318 99.5 100 16 136/84 93 Room Air 02/07 2055 105 120/68 02/07 1600 Room Air 02/07 1522 98.8 102 20 138/80 92 Room Air 02/07 1137 Room Air 02/07 1135 95 Room Air 02/07 1035 96 140/80 02/07 1035 96 140/80 Intake & Output 02/08 0800 02/08 0000 02/07 0802/07 0000 Intake Total 160.5 400 960 120 300 Output Total 775 1350 1400 1200 Balance 160.5 -375 -390 -1280 -900 Intake, IV 10.5 Intake, Oral 150 400 960 120 300 Number 3 3 0 0 1 Bowel Movements Output, Urine 775 1350 1400 1200 Patient 173 lb Weight Physical Exam: General: WD/overweight female HEENT: NC/AT, PERRl, EOMI Neck: no JVD, no carotid bruit Heart: tachycardic with regular rhythm Lungs: clear bilaterally anteriorly Abdomen: soft, obese, NT, +ve bowel sounds Extremities: no edema Neuro: finger to nose is abnormal bilaterally Assessment/Plan Assessment/Plan * This patient was admitted for alcohol withdrawal and symptoms of pancreatitis. She was discovered to be tachycardic with positive cardiac enzymes and an echocardiogram disclosed a poor EF. According to the patient's she is chronically tachycardic at her baseline. She also runs on a regular basis without symptoms. Her cardiomyopathy improved to normal on her most recent echocardiogram. Increase Metoprolol to 25mg BID. * At this point I would be inclined to recommend risk stratification with a stress test to assess for ischemia prior to discharge since she did demonstrate positive cardiac enzymes and may have chest pain. If she can walk then I would prefer a treadmill nuclear stress test. At the present time she appears to lack coordination and therefore may need a pharmacologic stress test depending on the rate and extent of her recovery. In the setting of alcohol abuse, her prior chest pain may well be GI in origin and related to gastritis or pancreatitis from alcohol. * This patient need psychiatric care for depression as well as for her alcohol abuse. Continue telemetry? Yes
[2018-02-08 12:00] VITALS: BP 120/70
[2018-02-08 14:48] VITALS: BP 110/69
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
[2018-02-08 22:02] VITALS: BP 128/86
[2018-02-09 06:55] VITALS: BP 118/74
[2018-02-09 08:27] LABS: ABSOLUTE BASOPHIL COUNT 0.1 /CUMM (0.0-0.2); ABSOLUTE GRANULOCYTE CT 8.2 /CUMM (1.4-6.5)
--- NOTE | 2018-02-09 09:02 | PN- Housestaff ---
Lizandro ROLLINS,[facility] 02/09/18 0901: Subjective Follow-up For: Acute pancreatitis Alcohol withdrawal Aspiration pneumonia Type II MD Acute systolic dysfunction Critical illness myopathy Transaminitis UTI Depression/Anxiety Tele-Events Since Last Visit: Sinus tachycardia Heart rate 94-107 Subjective: Patient is more alert and awake this morning, answering all questions. Complains of burning urination since the Mehta was taken out. Denies any abdominal pain or fever/chills. Review of Systems Constitutional: Reports: no symptoms. EENTM: Reports: no symptoms. Cardiovascular: Reports: no symptoms. Respiratory: Reports: no symptoms. Gastrointestinal: Reports: no symptoms. Genitourinary: Reports: no symptoms, see HPI. Musculoskeletal: Reports: no symptoms. Skin: Reports: no symptoms. Neurological/Psychological: Reports: no symptoms. Hematologic/Endocrine: Reports: no symptoms. Immunologic/Allergic: Reports: no symptoms. Objective Last 24 Hrs of Vital Signs/I&O Vital Signs Date Time Temp Pulse Resp B/P B/P Pulse O2 O2 Flow FiO2 Mean Ox Delivery Rate 02/09 1420 99.4 101 20 126/74 93 Room Air 02/09 0807 96 118/74 02/09 0807 96 118/74 02/09 0655 99.8 96 22 118/74 91 Room Air 02/09 0106 98.4 02/08 2236 115 128/86 02/08 2202 100.6 106 22 128/86 91 02/08 1600 Room Air 02/08 1448 99.9 99 20 110/69 92 Room Air Intake & Output 02/09 1600 02/09 0800 02/09 0000 Intake Total 475 Output Total 500 230 Balance 475 -500 -230 Intake, Oral 475 Number 3 Bowel Movements Output, Urine 500 230 Patient 168 lb Weight Physical Exam General Appearance: Alert, Oriented X3, Cooperative, No Acute Distress Skin: No Rashes, No Breakdown Cardiovascular: Regular Rate, Normal S1, Normal S2 Lungs: Clear to Auscultation, Normal Air Movement Abdomen: Normal Bowel Sounds, Soft, No Tenderness Extremities: No Clubbing, No Cyanosis, No Edema Current Medications: Current Medications Sig/Lucy Start time Last Medication Dose Route Stop Time Status Admin Benzocaine/Menthol 1 RAZIA Q2P PRN 02/04 1300 AC PO Ceftriaxone Sodium 1,000 MG DAILY@1300 02/09 1300 AC 02/09 IV 1338 Cyanocobalamin 1,000 MCG DAILY 02/01 0900 AC 02/09 PO 0807 Diphenhydramine HCl 1 MARIELY BID 02/01 0945 02/09 TOP 0815 Enoxaparin Sodium 40 MG DAILY 01/31 1044 AC 02/09 SC 0811 Escitalopram Oxalate 10 MG DAILY 02/10 0900 DC PO Escitalopram Oxalate 10 MG DAILY 02/09 0900 AC 02/09 PO 0807 Escitalopram Oxalate 5 MG ONCE ONE 02/08 2100 DC 02/08 PO 02/08 2101 2236 Folic Acid 1 MG DAILY 02/01 0900 AC 02/09 PO 0807 Lisinopril 10 MG QAM 01/31 1041 AC 02/09 PO 0807 Lorazepam 1.5 MG Q8 02/08 1400 AC 02/09 PO 1338 Lorazepam 0 Q1P PRN 02/05 1245 AC 02/08 IV 0156 Magnesium Oxide 400 MG BID 02/07 0900 AC 02/09 PO 0807 Metoprolol Tartrate 25 MG BID 02/07 2100 AC 02/09 PO 0807 Multivitamins 15 ML DAILY 02/04 0900 AC 02/09 PO 0811 Nystatin 1 MARIELY TID PRN 02/07 1630 AC 02/07 TOP 2050 Omeprazole 40 MG DAILY AC 02/07 0741 AC 02/09 PO 0622 Thiamine HCl 100 MG DAILY 02/01 0900 AC 02/09 PO 0808 Trimethobenzamide HCl 200 MG 4 TIMES/DAY PRN 01/31 1615 AC 02/08 IM 0947 Last 24 Hrs of Lab/Altaf Results Last 24 Hrs of Labs/Mics: Laboratory Tests 02/09/18 0628: Anion Gap 14, Estimated GFR > 60, BUN/Creatinine Ratio 11.7, CBC w Diff NO MAN DIFF REQ, RBC 3.81 L, MCV 102.2 H, MCH 33.7 H, MCHC 32.9 L, RDW 15.9 H, MPV 9.0, Gran % 74.1, Lymphocytes % 12.8 L, Monocytes % 10.2 H, Eosinophils % 2.2, Basophils % 0.7, Absolute Granulocytes 8.2 H, Absolute Lymphocytes 1.4, Absolute Monocytes 1.1 H, Absolute Eosinophils 0.2, Absolute Basophils 0.1 02/08/18 1655: Urine Color YEL, Urine Clarity HAZY H, Urine pH 7.5, Ur Specific [place] 1.015, Urine Protein 100 H, Urine Ketones NEG, Urine Nitrite POS H, Urine Bilirubin NEG, Urine Urobilinogen 1.0, Ur Leukocyte Esterase LARGE H, Ur Microscopic SEDIMENT EXAMINED, Urine RBC 5-10 H, Urine WBC PACKD H, Ur Epithelial Cells MOD H, Urine Bacteria PACKD H, Urine Hemoglobin MOD H, Urine Glucose NEG Microbiology 02/08 1655 URINE ROUT: Urine Culture - RES GRAM NEGATIVE RODS Assessment/Plan Assessment: This is a 47-year-old lady with a past medical history of hypertension and daily alcohol use presented with one-day history of abdominal pain in the setting of elevated lipase (7174) and CT finding suggestive of pancreatitis. Initially patient was admitted to general medicine floor for acute pancreatitis and etoh detox, however later in the evening, her ciwa remained elevated with significant tachycardia, decision was made to transfer to ICU for Ativan drip. Plan; Acute hypoxic respiratory failure; Resolved Patient initial chest x-ray on 01/31/18 was suggestive of pulmonary edema, after receiving 7 L of LR that she received as part of treatment protocol for pancreatitis.She desaturated on nonrebreather mask to o2 levels of 70%, and was eventually intubated. She also found to have acute decrease in EF in the setting of acute illness (unknown previous EF) and known to be tachycardic at baseline which could have contributed for decompensation. She was intubated due to acute decompensation of her respiratory status. CTAngio ruled out PE in the setting of persistent tachycardia. Stabilized and extubated on 02/04/18, remains stable on RA. Alcohol withdrawl; She was placed on ativan drip. Once stabilized gradually taperred off on 02/05/18. Not started on any librium given elevated trasaminases. * Highest CIWA for the past 24 hours is 5. * Change Ativan to 1 mg Q 8 * IV ativan per CIWA protocol * Multivitamin, folate, thiamine * Follow up with social media content manager * Psych Consult for depression and alcohol abuse; Started on Lexapro UTI; Patient complained of burning with urination. * UA positive for nitrites and leukocyte esterase. * WBC count of 11.0 * Urine culture pending * We'll start the patient on IV ceftriaxone. Acute pancreatitis; Resolved Appears secondary to alcohol consumption. US liver ruled out gall stones, did show fatty infiltration. Lipase trended down 7000 --> 1000. BISAP score 2 (for pelural effusion/SIRS) at admission. Abdomen is soft on exam. SIRS > 48hrs - severe. Presence of PaO2/FiO2 score of 2.4 suggest organ failure. She was placed on OG tube for decompression which was never used for feeding. After extubation she failed swallow eval on 02/05/18. She passed barium swallow on 02/06 placed on mechanical soft and regular thin diet. Tolerating well. Acute systolic dysfunction in the setting of tachycadia/etoh/stress Patient had EF 25-30% with severe posterior wall hypokinesis, mild LVH. Probably secondary to tachycarida or stress induced. She was started on metoprolol 12.5mg BID due to persistent tachycardia, lisinopril to decrease after load. Repeat ECHO on 02/04/18 did show improvement in EF to 60% without wall motion abnormalities. Cardiology on board and recommends a stress test which could be done as an outpatient. Elevated Troponin; Likely type 2 MD. Patient noted to have mild elevation of troponin which trended down , 0.63-->0.80-->0.50. It is most likely secondary to supply demand mismatch in the setting of active withdrawal. No chest pain or EKG changes. Aspiration pneumonia CXR suggestive of airspace disease that could suggest pneumonia especially in the context of dy heaving and vomiting prior to admission - possilbe aspiratory pna. She got treated with IV unasyn for a total of 5 days. Transaminitis; resolved AST/ALT - 249/210 at admission. Back to normal level. Critical illness myopathy - improved Patient had significant weakness after extubation. She was unable to talk for the first day, unable to move extremities to the fullest extent. Etiology is unclear, could be - neuromuscular agents given during central line insertion. She received Etomidate 15mg during first attempt followed by vecuronium 8.4mg during 2nd attempt. she was very agitated during placement requiring high dose along with ativan drip. - Continue working with physcial therpay/occupational therapy. DVT prophylaxis; S/C Lovenox and ALPS Patient is full code Problem List: 1. Pancreatitis, acute 2. UTI (urinary tract infection) 3. Depression Pain Ratin Pain Location: NA Pain Goal: Remain pain free Pain Plan: Pain Pathway Tomorrow's Labs & Rationales: CBC(UTI, Leukocytosis) Lary ROLLINS,Iesha 02/09/18 1540: Attending MD Review Statement Attending Statement Attending MD Statement: examined this patient, discuss w/resident/PA/GOVERNMENT PROPERTY INSPECTOR, agreed w/resident/PA/GOVERNMENT PROPERTY INSPECTOR, reviewed EMR data (avail) Attending Assessment/Plan: 47F PMH HTN admitted initially for acute pancreatitis with course complicated by alcohol withdrawal delirium requring Ativan drip and intubation, extubated 02/04, with aspiration pneumonia, elevated troponin, and continued delirium. Mental status improving, more alert today. No complaints. No further telemetry events. 1. Acute pancreatitis (resolved) 2. Acute hypoxemic respiratory failure 3. Alcohol withdrawal delirium 4. Type 2 myocardial infarction 5. Alcoholic cardiomyopathy Plan - Discontinue telemetry - Advance diet as tolerated - Discontinue Unasyn, start Augmentin to complete 7 day course for aspiration pneumonia - Follow speech therapy recommendations - Follow cardiology recommendations - Stress test next week - Continue Ativan taper - Continue home medications - DVT PPx - Anticipated discharge potentially tomorrow if continues to improve
[2018-02-09 09:16] LABS: ABSOLUTE EOSINOPHIL COUNT 0.2 /CUMM (0.0-0.7); ABSOLUTE LYMPH COUNT 1.4 /CUMM (1.2-3.4); ABSOLUTE MONOCYTE COUNT 1.1 /CUMM (0.10-0.60); BASOPHIL % 0.7 % (0.0-2.0); EOSINOPHIL % 2.2 % (0-5); GRANULOCYTE % 74.1 % (42.2-75.2); MEAN CORPUSCULAR HGB 33.7 PG (27.0-31.0); MEAN CORPUSCULAR HGB CONC 32.9 G/DL (33.0-37.0); MEAN CORPUSCULAR VOLUME 102.2 FL (81.0-99.0); RBC DISTRIBUTION WIDTH 15.9 % (11.5-14.5)
[2018-02-09 09:26] LABS: HEMATOCRIT 38.9 % (37-47); PLATELET COUNT 646 /CUMM (130-400); RED BLOOD CELL CT 3.81 /CUMM (4.20-5.40)
--- NOTE | 2018-02-09 09:36 | PN- Cardiology ---
Subjective Subjective: * This patient is much more alert and is without complaints. She has been able to engage in physical therapy and is doing well. * sinus rhythm with minimal tachycardia * Increased WBC count Objective Vital Signs and I&Os Vital Signs Date Time Temp Pulse Resp B/P B/P Pulse O2 O2 Flow FiO2 Mean Ox Delivery Rate 02/09 0807 96 118/74 02/09 0807 96 118/74 02/09 0655 99.8 96 22 118/74 91 Room Air 02/09 0106 98.4 02/08 2236 115 128/86 02/08 2202 100.6 106 22 128/86 91 02/08 1600 Room Air 02/08 1448 99.9 99 20 110/69 92 Room Air 02/08 1200 98.4 100 20 120/70 02/08 1052 98 134/72 02/08 1052 98 134/72 Intake & Output 02/09 1600 02/09 0800 02/09 0000 02/08 1600 02/08 0800 02/08 0000 Intake Total 600 160.5 400 Output Total 500 230 200 775 Balance -500 -230 400 160.5 -375 Intake, IV 10.5 Intake, Oral 600 150 400 Number 2 3 3 Bowel Movements Output, Urine 500 230 200 775 Patient 168 lb 173 lb Weight Physical Exam: General: WD/overweight female HEENT: NC/AT, PERRl, EOMI Neck: no JVD, no carotid bruit Heart: regular rate and rhythm Lungs: clear bilaterally anteriorly Abdomen: soft, obese, NT, +ve bowel sounds Extremities: no edema Neuro: normal finger to nose bilaterally (improved) Assessment/Plan Assessment/Plan * This patient was admitted for alcohol withdrawal and symptoms of pancreatitis. She was discovered to be tachycardic with positive cardiac enzymes and an echocardiogram disclosed a poor EF. According to the patient's she is chronically tachycardic at her baseline. She also runs on a regular basis without symptoms. Her cardiomyopathy improved to normal on her most recent echocardiogram. * Continue Metoprolol at 25mg BID. * At this point I would be inclined to recommend risk stratification with a stress test to assess for ischemia. The patient at her baseline runs multiple miles per day and is pain free. This test can be cone as an outpatient. The patient is stable from a cardiac standpoint. In the setting of alcohol abuse, her prior chest pain may well be GI in origin and related to gastritis or pancreatitis from alcohol. Continue telemetry? No
[2018-02-09 14:20] VITALS: BP 126/74
[2018-02-09] MEDS ORDERED: NYSTATIN15 G1 TOP (20:58)
[2018-02-09] MEDS ORDERED: CIPRO500 M1 PO (20:58)
[2018-02-09] MEDS ORDERED: FOLIC ACID1 M1 PO (20:58)
[2018-02-09] MEDS ORDERED: VITAMIN B-121000 MC3 PO (20:58)
[2018-02-09] MEDS ORDERED: VITAMIN B-1100 MG PO (20:58)
[2018-02-09] MEDS ORDERED: METOPROLOL TART25 M1 PO (20:58)
[2018-02-09] MEDS ORDERED: ITCH RELIEF CRE28 GM TOP (20:58)
[2018-02-09] MEDS ORDERED: LEXAPRO10 M1 PO (20:58)
[2018-02-09 22:39] VITALS: BP 128/68
[2018-02-10] VITALS (8 sets, daily range): BP systolic 110–142; BP diastolic 64–86
[2018-02-10 08:26] LABS: ABSOLUTE BASOPHIL COUNT 0.1 /CUMM (0.0-0.2); ABSOLUTE EOSINOPHIL COUNT 0.4 /CUMM (0.0-0.7); ABSOLUTE LYMPH COUNT 1.2 /CUMM (1.2-3.4); BASOPHIL % 1.2 % (0.0-2.0); EOSINOPHIL % 3.4 % (0-5); GRANULOCYTE % 77.1 % (42.2-75.2); HEMATOCRIT 35.4 % (37-47); MEAN CORPUSCULAR HGB 34.5 PG (27.0-31.0); MEAN CORPUSCULAR HGB CONC 33.9 G/DL (33.0-37.0); MEAN CORPUSCULAR VOLUME 101.8 FL (81.0-99.0); MEAN PLATELET VOLUME 8.7 FL (7.4-10.4); PLATELET COUNT 637 /CUMM (130-400); RBC DISTRIBUTION WIDTH 15.4 % (11.5-14.5); RED BLOOD CELL CT 3.47 /CUMM (4.20-5.40); WHITE BLOOD CELL COUNT 11.7 /CUMM (4.8-10.8)
--- NOTE | 2018-02-10 09:02 | PN- Cardiology ---
Subjective Subjective: * Patient is much more alert and conversant. * sinus tachycardia. * Still a bit unsteady with walking. * Mildly increased WBC count Objective Vital Signs and I&Os Vital Signs Date Time Temp Pulse Resp B/P B/P Pulse O2 O2 Flow FiO2 Mean Ox Delivery Rate 02/10 0730 98.8 112 22 122/78 92 Room Air 02/09 2239 98.9 110 22 128/68 94 02/09 2129 106 130/78 02/09 1420 99.4 101 20 126/74 93 Room Air Intake & Output 02/10 1600 02/10 0802/10 0000 02/09 1600 02/09 0802/09 0000 Intake Total 120 120 475 Output Total 150 500 230 Balance 120 -30 475 -500 -230 Intake, Oral 120 120 475 Number 3 Bowel Movements Output, Urine 150 500 230 Patient 166 lb 168 lb Weight Physical Exam: General: WD/overweight female HEENT: NC/AT, PERRl, EOMI Neck: no JVD, no carotid bruit Heart: tachycardic with regular rhythm Lungs: clear bilaterally anteriorly Abdomen: soft, obese, NT, +ve bowel sounds Extremities: no edema Neuro: normal finger to nose bilaterally (improved) Assessment/Plan Assessment/Plan * This patient was admitted for alcohol withdrawal and symptoms of pancreatitis. She was discovered to be tachycardic with positive cardiac enzymes and an echocardiogram disclosed a poor EF. According to the patient's she is chronically tachycardic at her baseline. She also runs on a regular basis without symptoms. Her cardiomyopathy improved to normal on her most recent echocardiogram. * Increase Metoprolol to 37.5mg BID. * At this point I would be inclined to recommend risk stratification with a stress test to assess for ischemia. The patient at her baseline runs multiple miles per day and is pain free. This test can be done as an outpatient. The patient is stable from a cardiac standpoint. In the setting of alcohol abuse, her prior chest pain may well be GI in origin and related to gastritis or pancreatitis from alcohol. Continue telemetry? Yes
[2018-02-10] MEDS ORDERED: ATIVAN1 M1 PO (10:55)
--- NOTE | 2018-02-10 11:49 | PN- Att Addend ---
Attending Addendum Attending Brief Note 47F PMH HTN admitted initially for acute pancreatitis with course complicated by alcohol withdrawal delirium requring Ativan drip and intubation, extubated 02/04, with aspiration pneumonia, elevated troponin, and continued delirium. Mental status improving, more alert today. No complaints. No further telemetry events. 1. Acute pancreatitis (resolved) 2. Acute hypoxemic respiratory failure 3. Alcohol withdrawal delirium 4. Type 2 myocardial infarction 5. Alcoholic cardiomyopathy Plan - Stable for discharge with outpatient psychiatry follow up - Augmentin for 7 day course - Follow speech therapy recommendations - Follow cardiology recommendations - Stress test next week as outpatient - Continue Ativan taper - Continue home medications
--- NOTE | 2018-02-10 15:03 | Event Note ---
Event Note Event Note: S: At 1:35PM a rapid response was called after the patient was witnessed to have fallen by MST. Apparently the patient was using the bathroom and when she tried to get up from the toilet, she fell backwards landing on her buttocks. There was a question of a head strike as the MST noted that the patient's head position appeared to be leaning backwards. However patient denied. The patient denies any preceding loss of consciousness, dizziness. No seizure activity. Patient attributes her fall to "being in the hospital". B: 47F PMH HTN admitted initially for acute pancreatitis with course complicated by alcohol withdrawal delirium requring Ativan drip and intubation, extubated , with aspiration pneumonia, elevated troponin, and continued delirium. Patient was transferred from telemetry to [facility] today. Mental status is improving as per report, patient is more alert today. She is currently on antibiotics and will be switched to Augmentin for finishing her 7 day course. She is currently on 1 mg twice a day standing dose Ativan taper. She is also on Rocephin 1 g by mouth daily and metoprolol 37.5 twice a day, lisinopril 10 mg every morning. A: Patient was seen and examined. Physical exam including neuro exam were normal. Temperature was 99, blood pressure 120/72, heart rate 104, respiratory rate 20, O2 sat 98% on room air, blood sugar 110. She was alert and oriented 3. Note: As per nursing at around 3:00 PM, it was reported that the patient's /boyfriend stated that she confided in him that she did in fact that her head. R: We will send the patient for CT head without contrast to evaluate for bleed. We will continue to monitor for any change in mental status or acute decompensation. Otherwise no intervention needed at this time.
--- NOTE | 2018-02-10 16:09 | CT SCAN REPORT ---
EXAMINATION: CT HEAD without contrast CLINICAL INFORMATION: Fall COMPARISON: No prior CT scan available for comparison. TECHNIQUE: Computed axial tomographic sections at 2.5 mm thin section with reformats in the coronal plane. DLP: 616 mGy-cm FINDINGS: CEREBRAL HEMISPHERES: There is no evidence of intra-axial or extra-axial mass, hemorrhage or acute infarct. BRAIN PARENCHYMA: Normal gonzalez-white matter differentiation. SUBDURAL SPACE: No bleed. BASAL GANGLIA AND PINEAL GLAND: Unremarkable VENTRICLES: Symmetric and normal in size. CEREBELLUM AND BRAINSTEM: No space-occupying mass, hemorrhage or acute infarct. CEREBELLOPONTINE ANGLES: No lesion found. ORBITS: No intraorbital mass. VESSELS: Unremarkable SKULL BASE: Unremarkable INCLUDED SINUSES AT SKULL BASE: Clear SKULL AND SKIN: No fracture or bone lesion found. IMPRESSION: No CT evidence of intracranial space-occupying mass, bleed or infarct.
[2018-02-11 06:43] VITALS: BP 138/80
--- NOTE | 2018-02-11 09:28 | PN- Cardiology ---
Subjective Subjective: * Patient had a mechanical fall yesterday when turning. No lightheadedness or palpitations but still unsteady with walking. * No dysrhythmias on telemetry. Mild tachycardia. Objective Vital Signs and I&Os Vital Signs Date Time Temp Pulse Resp B/P B/P Pulse O2 O2 Flow FiO2 Mean Ox Delivery Rate 02/11 0643 99.7 102 20 138/80 92 Room Air 02/11 0000 Room Air 02/10 2210 113 02/10 2208 99.3 113 24 124/72 91 02/10 2138 108 138/72 02/10 1816 99.6 104 24 142/86 93 02/10 1600 99.0 140 20 120/72 02/10 1400 99.0 104 20 120/72 02/10 1348 98.4 97 20 110/80 91 Room Air 02/10 1335 99.0 104 20 120/72 02/10 1152 100 122/72 Intake & Output 02/11 1600 02/11 0800 02/11 0000 02/10 1600 02/10 0800 02/10 0000 Intake Total 620 120 120 Output Total 175 500 150 Balance -175 120 120 -30 Intake, IV 20 Intake, Oral 600 120 120 Number 0 Bowel Movements Output, Urine 175 500 150 Patient 174 lb 166 lb Weight Physical Exam: General: WD/overweight female HEENT: NC/AT, PERRl, EOMI Neck: no JVD, no carotid bruit Heart: tachycardic with regular rhythm Lungs: clear bilaterally anteriorly Abdomen: soft, obese, NT, +ve bowel sounds Extremities: no edema Neuro: normal finger to nose bilaterally (improved) Assessment/Plan Assessment/Plan * This patient was admitted for alcohol withdrawal and symptoms of pancreatitis. She was discovered to be tachycardic with positive cardiac enzymes and an echocardiogram disclosed a poor EF. According to the patient's she is chronically tachycardic at her baseline. She also runs on a regular basis without symptoms. Her cardiomyopathy improved to normal on her most recent echocardiogram. * Increase Metoprolol to 50mg BID. * At this point I would be inclined to recommend risk stratification with a stress test to assess for ischemia. The patient at her baseline runs multiple miles per day and is pain free. This test can be done as an outpatient. The patient is stable from a cardiac standpoint. In the setting of alcohol abuse, her prior chest pain may well be GI in origin and related to gastritis or pancreatitis from alcohol. * Fall was mechanical due to unsteadiness. Okay to go to general medicine. Continue telemetry? Yes
[2018-02-11 09:45] VITALS: BP 114/70
[2018-02-11 12:36] VITALS: BP 120/72
[2018-02-11 14:35] VITALS: BP 124/80
--- NOTE | 2018-02-11 18:17 | PN- Att Addend ---
Attending Addendum Attending Brief Note 47F H HTN admitted initially for acute pancreatitis with course complicated by alcohol withdrawal delirium requring Ativan drip and intubation, extubated 02/04, with aspiration pneumonia, elevated troponin, and continued delirium. Mental status improving, more alert today. No complaints. No further telemetry events. Had a fall the day prior that was mechanical, as she fell backwards trying to pen a door. She did not hit her head and her neuro exam is normal. 1. Acute pancreatitis (resolved) 2. Acute hypoxemic respiratory failure 3. Alcohol withdrawal delirium 4. Type 2 myocardial infarction 5. Alcoholic cardiomyopathy Plan - Awaiting acute rehab bed - Augmentin for 7 day course - Follow speech therapy recommendations - Follow cardiology recommendations - Stress test next week as outpatient - Continue Ativan taper - Continue home medications
[2018-02-11 21:32] VITALS: BP 142/84
[2018-02-11 22:00] VITALS: BP 142/84
[2018-02-12 06:30] VITALS: BP 127/70
[2018-02-12 07:59] LABS: ABSOLUTE BASOPHIL COUNT 0.2 /CUMM (0.0-0.2); ABSOLUTE EOSINOPHIL COUNT 0.5 /CUMM (0.0-0.7); ABSOLUTE GRANULOCYTE CT 6.6 /CUMM (1.4-6.5); ABSOLUTE LYMPH COUNT 1.3 /CUMM (1.2-3.4); ABSOLUTE MONOCYTE COUNT 0.4 /CUMM (0.10-0.60); BASOPHIL % 2.1 % (0.0-2.0); EOSINOPHIL % 5.3 % (0-5); HEMATOCRIT 33.7 % (37-47); MEAN CORPUSCULAR HGB 34.5 PG (27.0-31.0); MEAN CORPUSCULAR HGB CONC 34.2 G/DL (33.0-37.0); MEAN CORPUSCULAR VOLUME 100.9 FL (81.0-99.0); MEAN PLATELET VOLUME 8.4 FL (7.4-10.4); PLATELET COUNT 634 /CUMM (130-400); RBC DISTRIBUTION WIDTH 15.3 % (11.5-14.5); RED BLOOD CELL CT 3.34 /CUMM (4.20-5.40)
--- NOTE | 2018-02-12 08:07 | PN- Housestaff ---
Antonio Samuel 02/12/18 0806: Subjective Follow-up For: Acute pancreatitis Alcohol withdrawal Aspiration pneumonia Type II IN Acute systolic dysfunction Critical illness myopathy Transaminitis UTI Depression/Anxiety Complaints: no complaints Subjective: I have seen and examined the patient today morning, she seems to be doing well, tolerating her diet well, does not have any pain today, no new complaints. Review of Systems Constitutional: Reports: see HPI. Objective Last 24 Hrs of Vital Signs/I&O Vital Signs Date Time Temp Pulse Resp B/P B/P Pulse O2 O2 Flow FiO2 Mean Ox Delivery Rate 02/12 1417 99.1 96 20 116/60 95 Room Air 02/12 0754 98 118/72 02/12 0753 98 118/72 02/12 0739 100 02/12 0630 98.7 105 24 127/70 92 Room Air 02/11 2200 98.9 86 18 142/84 02/11 2132 98.9 86 18 142/84 96 Room Air 02/11 2017 136/68 Intake & Output 02/12 1600 02/12 0800 02/12 0000 Intake Total 730 0 Output Total 200 300 Balance 730 -200 -300 Intake, IV 30 Intake, Oral 700 0 Number 1 0 Bowel Movements Output, Urine 200 300 Patient 75.75 kg Weight Physical Exam General Appearance: Alert, Oriented X3, Cooperative Skin: No Rashes, No Breakdown, No Significant Lesion Neck: Supple, No JVD Cardiovascular: Regular Rate, Normal S1, Normal S2, No Murmurs Lungs: Clear to Auscultation, Normal Air Movement Abdomen: Normal Bowel Sounds, Soft, No Tenderness Extremities: No Clubbing, No Cyanosis, No Edema, Normal Pulses Vascular: Normal Pulses Current Medications: Current Medications Sig/Lucy Start time Last Medication Dose Route Stop Time Status Admin Benzocaine/Menthol 1 RAZIA Q2P PRN 02/04 1300 AC PO Ceftriaxone Sodium 1,000 MG DAILY@1300 02/09 1300 AC 02/12 IV 1203 Cyanocobalamin 1,000 MCG DAILY 02/01 09 AC 02/12 PO 0754 Diphenhydramine HCl 1 MARIELY BID PRN 02/10 1043 AC TOP Enoxaparin Sodium 40 MG DAILY 01/31 1044 AC 02/12 SC 0752 Escitalopram Oxalate 10 MG DAILY 02/09 09 AC 02/12 PO 0753 Folic Acid 1 MG DAILY 02/01 09 AC 02/12 PO 0753 Lisinopril 10 MG QAM 01/31 1041 AC 02/12 PO 0754 Lorazepam 0 Q1P PRN 02/05 1245 DC 02/08 IV 0156 Magnesium Oxide 400 MG BID 02/07 0900 AC 02/12 PO 0754 Melatonin 5 MG AT BEDTIME 02/11 0230 AC PO Metoprolol Tartrate 50 MG BID 02/11 2100 AC 02/12 PO 0753 Multivitamins 1 TAB DAILY 02/10 1043 AC 02/12 PO 0754 Nystatin 1 MARIELY TID PRN 02/07 1630 DC 02/07 TOP 2050 Omeprazole 40 MG DAILY AC 02/07 0741 AC 02/12 PO 0632 Thiamine HCl 100 MG DAILY 02/01 09 AC 02/12 PO 0754 Trimethobenzamide HCl 200 MG 4 TIMES/DAY PRN 01/31 1615 AC 02/08 IM 0947 Last 24 Hrs of Lab/Altaf Results Last 24 Hrs of Labs/Mics: Laboratory Tests 02/12/18 0721: Anion Gap 10, Estimated GFR > 60, BUN/Creatinine Ratio 11.7, Magnesium 1.9, CBC w Diff NO MAN DIFF REQ, RBC 3.34 L, MCV 100.9 H, MCH 34.5 H, MCHC 34.2, RDW 15.3 H, MPV 8.4, Gran % 73.0, Lymphocytes % 14.7 L, Monocytes % 4.9, Eosinophils % 5.3 H, Basophils % 2.1 H, Absolute Granulocytes 6.6 H, Absolute Lymphocytes 1.3, Absolute Monocytes 0.4, Absolute Eosinophils 0.5, Absolute Basophils 0.2 Lines/Diet/Fluids Restraints: none Assessment/Plan Assessment: Mrs Doran is a 47-year-old lady with a past medical history of hypertension and daily alcohol use presented with one-day history of abdominal pain in the setting of elevated lipase (7174) and CT finding suggestive of pancreatitis. Initially patient was admitted to general medicine floor for acute pancreatitis and etoh detox, however later she began to withdraw from alcohol and was transferred to ICU for Ativan drip Problem list along with assessment and plan # Acute hypoxic respiratory failure; Resolved * Patient initial chest x-ray on 01/31/18 was suggestive of pulmonary edema, after receiving 7 L of LR that she received as part of treatment protocol for pancreatitis. * She desaturated on nonrebreather mask to o2 levels of 70%, and was eventually intubated. * She also found to have acute decrease in EF in the setting of acute illness ( unknown previous EF) and known to be tachycardic at baseline which could have contributed for decompensation. * CTAngio ruled out PE in the setting of persistent tachycardia. * Stabilized and extubated on 02/04/18, remains stable on RA. # Alcohol withdrawl * She was placed on ativan drip and then switched to po taper, taper completed. * social work on board * discussion for IOP in progress * Multivitamin, folate, thiamine * psych consult appreciated. # UTI * Patient complained of burning with urination. * UA positive for nitrites and leukocyte esterase. * WBC count of 11.0 * Urine culture grew citrobacter and klebsiella * ct IV ceftriaxone. # Acute pancreatitis; Resolved * Etiology : alcohol consumption. * US liver ruled out gall stones, did show fatty infiltration. * BISAP score 2 (for pleural effusion/SIRS) at admission. * She was placed on OG tube for decompression * After extubation she failed swallow eval on 02/05/18. She passed barium swallow on 02/06/18 placed on mechanical soft and regular thin diet. Tolerating well. # Acute systolic dysfunction in the setting of tachycardia/etoh/stress * Patient had EF 25-30% with severe posterior wall hypokinesis, mild LVH. * Probably secondary to tachycardia or stress induced. * She was started on metoprolol 12.5mg BID due to persistent tachycardia, lisinopril to decrease after load. * Repeat ECHO on 02/04/18 did show improvement in EF to 60% without wall motion abnormalities. * stress test which could be done as an outpatient. # Elevated Troponin 2/2 to type 2 IN. * Trended down * op stress test # Aspiration pneumonia * CXR suggestive of airspace disease that could suggest pneumonia especially in the context of dy heaving and vomiting prior to admission - possible aspiratory pna. * She got treated with IV unasyn for a total of 5 days, now completed. # Transaminitis; resolved AST/ALT - 249/210 at admission. Back to normal level. Critical illness myopathy - * Improving - Continue working with physical therapy/occupational therapy. DVT prophylaxis; S/C Lovenox and ALPS Patient is full code Problem List: 1. Cardiomyopathy 2. Depression 3. UTI (urinary tract infection) 4. Systolic heart failure 5. Acute respiratory failure with hypoxia 6. Pancreatitis, acute Pain Ratin Pain Location: abdomen Pain Goal: Remain pain free Pain Plan: current Tomorrow's Labs & Rationales: .. PolinaMiketabatha 02/12/18 1630: Attending MD Review Statement Attending Statement Attending MD Statement: examined this patient, discuss w/resident/PA/[employer], agreed w/resident/PA/[employer], reviewed EMR data (avail), discussed with nursing, discussed with case mgmt Attending Assessment/Plan: elissa ferguson - improved. d/w pt and pts family at bedside the care plan. d/w social work manager and she is going to discuss with the pt and family the rehab options. UTI - culture grew citrobacter/ Klebsiella- on ceftriaxone. Thrombocytosis- likely secondary to folic acid def. on replacement now. cont replacement therapy and f/u on platelets.
--- NOTE | 2018-02-12 13:25 | PN- Psychiatry ---
Assessment/Plan Impression: 47 y/o F who presented with abdominal pain and elevated lipase found to have pancreatitis. Hx of severe etoh use disorder. apparently asked for me to speak with pt again. She is feeling somewhat better mood tobar. Speaking more clearly, brighter. I did psychoed regarding the severity of her disorder and the most optimal treatment for recovery. concerned she is restrictive eater. States she simply wont eat. She agrees. No SI, AVH. Laboratory Tests 02/12 0721 Chemistry Sodium (137 - 145 mmol/L) 142 Potassium (3.5 - 5.1 mmol/L) 3.8 Chloride (98 - 107 mmol/L) 106 Carbon Dioxide (22 - 30 mmol/L) 26 Anion Gap (5 - 16) 10 BUN (7 - 17 mg/dL) 7 Creatinine (0.5 - 1.0 mg/dL) 0.6 Estimated GFR (>60 ml/min) > 60 BUN/Creatinine Ratio (7 - 25 %) 11.7 Magnesium (1.6 - 2.3 mg/dL) 1.9 Hematology CBC w Diff NO MAN DIFF REQ WBC (4.8 - 10.8 /CUMM) 9.0 RBC (4.20 - 5.40 /CUMM) 3.34 L Hgb (12.0 - 16.0 G/DL) 11.5 L Hct (37 - 47 %) 33.7 L MCV (81.0 - 99.0 FL) 100.9 H MCH (27.0 - 31.0 PG) 34.5 H MCHC (33.0 - 37.0 G/DL) 34.2 RDW (11.5 - 14.5 %) 15.3 H Plt Count (130 - 400 /CUMM) 634 H MPV (7.4 - 10.4 FL) 8.4 Gran % (42.2 - 75.2 %) 73.0 Lymphocytes % (20.5 - 51.1 %) 14.7 L Monocytes % (1.7 - 9.3 %) 4.9 Eosinophils % (0 - 5 %) 5.3 H Basophils % (0.0 - 2.0 %) 2.1 H Absolute Granulocytes (1.4 - 6.5 /CUMM) 6.6 H Absolute Lymphocytes (1.2 - 3.4 /CUMM) 1.3 Absolute Monocytes (0.10 - 0.60 /CUMM) 0.4 Absolute Eosinophils (0.0 - 0.7 /CUMM) 0.5 Absolute Basophils (0.0 - 0.2 /CUMM) 0.2 MSE: Pt in bed looking brighter and better from last exam. Slightly tremulous. Engages in interview. Mood is improved affect appears somewhat nervous and constricted though she brightens. I believe she is guarded on exam, somewhat superficial and yessing and also not fully processing the extent of her illness- -->denial. Insight is superfically fair and judgment TBD she needs to see SW to choose treatment. A/ 47 y/o F with severe alcoholism, eating disorder NOS and depression who is here with multiple sequelae of her etoh use. She appears to be in a contemplative stage regarding aftercare. -SW consult for rehab options -Intake with outpatient psych for f/u March 14 1:15 pm, please add to d/c summary -B vitamins and ensure as an outpatient Page with any questions DonnauggJuan #[phone] Suggestion: see imp Subjective Subjective: see imp Objective Last 24 Hrs of Vital Signs/I&O Vital Signs Date Time Temp Pulse Resp B/P B/P Pulse O2 O2 Flow FiO2 Mean Ox Delivery Rate 02/12 0754 98 118/72 02/12 0753 98 118/72 02/12 0739 100 02/12 0630 98.7 105 24 127/70 92 Room Air 02/11 2200 98.9 86 18 142/84 02/11 2132 98.9 86 18 142/84 96 Room Air 02/11 2017 136/68 02/11 1435 99.1 98 20 124/80 93 Room Air Intake & Output 02/12 1600 02/12 0800 02/12 0000 Intake Total 0 Output Total 200 300 Balance -200 -300 Intake, Oral 0 Number 0 Bowel Movements Output, Urine 200 300 Patient 167 lb Weight
[2018-02-12 14:17] VITALS: BP 116/60
[2018-02-12 22:36] VITALS: BP 136/88
[2018-02-13 06:58] VITALS: BP 121/77
--- NOTE | 2018-02-13 07:58 | PN- Housestaff ---
Antonio Samuel 02/13/18 0752: Subjective Follow-up For: Acute pancreatitis Alcohol withdrawal Aspiration pneumonia Type II TN Acute systolic dysfunction Critical illness myopathy Transaminitis UTI Depression/Anxiety Complaints: no complaints Review of Systems Constitutional: Reports: see HPI. Objective Last 24 Hrs of Vital Signs/I&O Vital Signs Date Time Temp Pulse Resp B/P B/P Pulse O2 O2 Flow FiO2 Mean Ox Delivery Rate 02/13 0658 98.5 99 20 121/77 96 Room Air 02/12 2236 98.8 102 20 136/88 96 Room Air 02/12 2222 102 136/88 02/12 1417 99.1 96 20 116/60 95 Room Air Intake & Output 02/13 0800 02/13 0000 02/12 1600 Intake Total 730 Output Total Balance 730 Intake, IV 30 Intake, Oral 700 Number 1 Bowel Movements Physical Exam General Appearance: Alert, Oriented X3, Cooperative Assessment/Plan Assessment: Mrs Doran is a 47-year-old lady with a past medical history of hypertension and daily alcohol use presented with one-day history of abdominal pain in the setting of elevated lipase (7174) and CT finding suggestive of pancreatitis. Initially patient was admitted to general medicine floor for acute pancreatitis and etoh detox, however later she began to withdraw from alcohol and was transferred to ICU for Ativan drip Problem list along with assessment and plan # Acute hypoxic respiratory failure; Resolved * Patient initial chest x-ray on 01/31/18 was suggestive of pulmonary edema, after receiving 7 L of LR that she received as part of treatment protocol for pancreatitis. * She desaturated on nonrebreather mask to o2 levels of 70%, and was eventually intubated. * She also found to have acute decrease in EF in the setting of acute illness ( unknown previous EF) and known to be tachycardic at baseline which could have contributed for decompensation. * CTAngio ruled out PE in the setting of persistent tachycardia. * Stabilized and extubated on 02/04/18, remains stable on RA. # Alcohol withdrawl * She was placed on ativan drip and then switched to po taper, taper completed. * social work on board * appointment for IOP intake confirmed. * Multivitamin, folate, thiamine * psych consult appreciated. # UTI * Patient complained of burning with urination. * UA positive for nitrites and leukocyte esterase. * WBC count of 11.0 * Urine culture grew citrobacter and klebsiella * ct IV ceftriaxone, last day today then off Ax # Acute pancreatitis; Resolved * Etiology : alcohol consumption. * US liver ruled out gall stones, did show fatty infiltration. * BISAP score 2 (for pleural effusion/SIRS) at admission. * She was placed on OG tube for decompression * After extubation she failed swallow eval on 02/05/18. She passed barium swallow on 02/06/18 placed on mechanical soft and regular thin diet. * tolerated regualr diet well, will d/c today. # Acute systolic dysfunction in the setting of tachycardia/etoh/stress * Patient had EF 25-30% with severe posterior wall hypokinesis, mild LVH. * Probably secondary to tachycardia or stress induced. * She was started on metoprolol 12.5mg BID due to persistent tachycardia, lisinopril to decrease after load. * Repeat ECHO on 02/04/18 did show improvement in EF to 60% without wall motion abnormalities. * stress test which could be done as an outpatient. # Elevated Troponin 2/2 to type 2 TN. * Trended down * op stress test # Aspiration pneumonia * CXR suggestive of airspace disease that could suggest pneumonia especially in the context of dy heaving and vomiting prior to admission - possible aspiratory pna. * She got treated with IV unasyn for a total of 5 days, now completed. # Transaminitis; resolved Critical illness myopathy - * Improving - Continue working with physical therapy/occupational therapy. DVT prophylaxis; S/C Lovenox and ALPS Patient is full code Problem List: 1. Cardiomyopathy 2. Depression 3. UTI (urinary tract infection) 4. Systolic heart failure 5. Acute respiratory failure with hypoxia 6. Pancreatitis, acute 7. Microcytic anemia Pain Ratin Pain Location: abdomen Pain Goal: Remain pain free Pain Plan: curent plan Tomorrow's Labs & Rationales: cbc, bep Discharge Plan Discharge Disposition: home Stable for Discharge? Yes Anticipated Discharge (Day): today If Discharged Today/In 24 Hrs: CMR done Wu Fish 02/13/18 1410: Attending MD Review Statement Attending Statement Attending MD Statement: examined this patient, discuss w/resident/PA/METHODS AND PROCEDURES ANALYST, agreed w/resident/PA/METHODS AND PROCEDURES ANALYST, reviewed EMR data (avail), discussed with nursing, discussed with case mgmt Attending Assessment/Plan: DC home today in stable condition. SW d/w pt the rehab option and pt is going to go for outpt alcohol rehab. see dc summary for more details.
--- NOTE | 2018-02-13 07:59 | Discharge Summary ---
Hospital Course Allergies: Coded Allergies: clarithromycin (From BIAXIN) (Severe, ANAPHYLAXIS 07/13/17) Penicillins (Intermediate, RASH 07/13/17) levofloxacin (From LEVAQUIN) (Intermediate, RASH 07/13/17) Discharge Instructions Medications at Discharge Discharge Medications: Continue taking these medications: Lisinopril (Lisinopril) 10 MG TABLET 1 Tablet ORAL Every Morning Comments: Last Taken:08/10/17 Time:1200 Loratadine/Pseudoephedrine (Claritin-D 24 Hour Tablet) 10 MG-240 MG TAB.ER.24H 1 Tablet ORAL DAILY Comments: DID NOT RECEIVE IN THE HOSPITAL Pantoprazole Sodium (Protonix) 40 MG TABLET.DR 1 Tablet ORAL TWICE DAILY Comments: DID NOT RECEIVE Start taking the following new medications: Metoprolol Tartrate (Metoprolol Tartrate) 25 MG TABLET 1 Tablet ORAL TWICE DAILY Qty = 60 No Refills Escitalopram Oxalate (Lexapro) 10 MG TABLET 1 Tablet ORAL DAILY Qty = 30 No Refills Nystatin (Nystatin) 100,000 UNIT/GRAM CREAM..G. 1 Application On the skin THREE TIMES DAILY as needed for fungal rash Qty = 1 No Refills Diphenhydramine HCl/Zinc Acet (Itch Relief Cream) 2 %-0.1 % CREAM..G. 1 Application On the skin TWICE DAILY Qty = 1 No Refills Cyanocobalamin (Vitamin B-12) 1,000 MCG TABLET 1 Tablet ORAL DAILY Qty = 30 No Refills Folic Acid (Folic Acid) 1 MG TABLET 1 Tablet ORAL DAILY Qty = 30 No Refills Thiamine HCl (Vitamin B-1) 100 MG TABLET 1 Tablet ORAL DAILY Qty = 30 No Refills Ciprofloxacin HCl (Cipro) 500 MG TABLET 1 Tablet ORAL TWICE DAILY Qty = 2 No Refills LORazepam (Ativan) 1 MG TAB 1 Tablet ORAL TAKE AT BEDTIME Qty = 1 No Refills
[2018-02-13 08:21] LABS: ABSOLUTE BASOPHIL COUNT 0.1 /CUMM (0.0-0.2); ABSOLUTE EOSINOPHIL COUNT 0.4 /CUMM (0.0-0.7); ABSOLUTE GRANULOCYTE CT 6.2 /CUMM (1.4-6.5); ABSOLUTE LYMPH COUNT 1.4 /CUMM (1.2-3.4); ABSOLUTE MONOCYTE COUNT 0.5 /CUMM (0.10-0.60); BASOPHIL % 1.3 % (0.0-2.0); GRANULOCYTE % 71.7 % (42.2-75.2); HEMATOCRIT 35.6 % (37-47); MEAN CORPUSCULAR HGB 34.3 PG (27.0-31.0); MEAN CORPUSCULAR VOLUME 101.1 FL (81.0-99.0); MEAN PLATELET VOLUME 8.5 FL (7.4-10.4); PLATELET COUNT 611 /CUMM (130-400); RBC DISTRIBUTION WIDTH 15.2 % (11.5-14.5); RED BLOOD CELL CT 3.53 /CUMM (4.20-5.40); WHITE BLOOD CELL COUNT 8.6 /CUMM (4.8-10.8)
[2018-02-13] MEDS ORDERED: METOPROLOL TART50 M1 PO ×2 (10:41→12:52)
[2018-02-13] MEDS ORDERED: VITAMIN B-1100 MG PO (12:52)
[2018-02-13] MEDS ORDERED: FOLIC ACID1 M1 PO (12:52)
[2018-02-13] MEDS ORDERED: VITAMIN B-121000 MC3 PO (12:52)
[2018-02-13] MEDS ORDERED: ONE DAILY MULT1 EAC2 PO (12:52)
[2018-02-13] MEDS ORDERED: LEXAPRO10 M1 PO (12:52)
[2018-02-13 12:59] VITALS: BP 122/72
== END 2018-02-13 13:15 | DRG 282 ==
LOC: ERH 05:03 → CRI 06:50 → 1NO 06:50 → ERHI 06:50 → ENRESERV 07:42 → CANRESERV 07:42 → EDBEDREQ 12:17 → ENRESERV 12:27 → ENTRNSPT 13:39 → EDTRNSPTSTS 13:41 → CRI 13:44 → ERHI 13:53 → 1NO 14:03 → CMPTRNSPT 14:12 → CRI 21:20 → 1NO 02-06 21:45 → ENTRNSPT 02-10 12:16 → EDTRNSPTSTS 02-10 12:17 → EDTRNSPT 02-10 12:17 → 2NB 02-10 12:52 → CMPTRNSPT 02-10 13:07 → 1NO 02-10 18:05 → ENTRNSPT 02-11 20:57 → 2NB 02-11 21:32 → 1NO 02-11 21:32 → CMPTRNSPT 02-11 21:47 → 2NB 02-13 08:12 → ENTRNSPT 02-13 13:06 → EDTRNSPTSTS 02-13 13:12 → 2NB 02-13 13:15 → CMPTRNSPT 02-13 13:25
PROVIDERS: Emergency Medicine; Internal Medicine; Student in an Organized Health Care Education/Training Program
PROC: 0BH17EZ Insertion of Endotracheal Airway into Trachea, Via Natural or Artificial Opening (ICD-10-PCS; principal; 2018-01-31)
PROC: 5A1945Z Respiratory Ventilation, 24-96 Consecutive Hours (ICD-10-PCS; 2018-01-31)
PROC: HZ2ZZZZ Detoxification Services for Substance Abuse Treatment (ICD-10-PCS; 2018-01-31)
PROC: HZ89ZZZ Medication Management for Substance Abuse Treatment, Other Replacement Medication (ICD-10-PCS; 2018-01-31)
PROC: 02HV33Z Insertion of Infusion Device into Superior Vena Cava, Percutaneous Approach (ICD-10-PCS; 2018-02-02)
DX: K85.20 Alcohol induced acute pancreatitis without necrosis or infection (principal); I10 Essential (primary) hypertension; K21.9 Gastro-esophageal reflux disease without esophagitis; E87.2 Acidosis; F10.239 Alcohol dependence with withdrawal, unspecified; F10.229 Alcohol dependence with intoxication, unspecified; Y90.3 Blood alcohol level of 60-79 mg/100 ml; J96.01 Acute respiratory failure with hypoxia; J69.0 Pneumonitis due to inhalation of food and vomit; E87.3 Alkalosis; E83.42 Hypomagnesemia; E87.6 Hypokalemia; I50.21 Acute systolic (congestive) heart failure; J91.8 Pleural effusion in other conditions classified elsewhere; I42.6 Alcoholic cardiomyopathy; R00.0 Tachycardia, unspecified; I95.89 Other hypotension; D53.9 Nutritional anemia, unspecified; R74.0 Nonspecific elevation of levels of transaminase and lactic acid dehydrogenase [LDH]; G72.81 Critical illness myopathy; F10.221 Alcohol dependence with intoxication delirium; I21.A1 Myocardial infarction type 2; N39.0 Urinary tract infection, site not specified; B96.1 Klebsiella pneumoniae [K. pneumoniae] as the cause of diseases classified elsewhere; B96.89 Other specified bacterial agents as the cause of diseases classified elsewhere; Z88.1 Allergy status to other antibiotic agents; Z88.0 Allergy status to penicillin; F32.9 Major depressive disorder, single episode, unspecified; F41.9 Anxiety disorder, unspecified; W18.30XA Fall on same level, unspecified, initial encounter; Y92.239 Unspecified place in hospital as the place of occurrence of the external cause; D69.6 Thrombocytopenia, unspecified
CPT/HCPCS: 1NSP; 2NBSP; 84133; 84300; CCU; 36415; 36592; 71045; 74177; 74230; 80307; 81001; 82436; 82570; 87040; 87070; 87086; 93005; 93010; 93306; 93308; 93321; 96361; 96365; 96375; 96376; 97110-GO; 97112-GO; 97116-GO; 97161-GP; 97165-GO; 97530-GO; 99291; G0480; J0131; J0696; J1650; J1940; J2060; J2765; J3010; J3250; J3490; J7042; J7060; J7120